=== PATIENT | female | born 1985 | race Caucasian/White ===

== ENCOUNTER 2019-07-26 12:00 | Inpatient (IN) | payer OTHER ==
[~2019-07-26] VITALS: Ht 170.2 cm; Wt 81.6 kg
[2019-07-26 12:55] LABS: BASOPHILS % 0.3 % (0.0-1.0); EOSINOPHILS % 0.1 % (0.0-6.0); HEMATOCRIT 43.2 % (34.2-44.1); HEMOGLOBIN 14.6 g/dL (12.0-16.0); LYMPHOCYTES # (AUTO) 3.2 (1.0-3.2); LYMPHOCYTES % 23.3 % (18.0-39.1); MEAN CORPUSCULAR HEMOGLOBIN 31.1 pg (28-32); MEAN CORPUSCULAR HGB CONC 33.8 g/dL (31-35); MEAN CORPUSCULAR VOLUME 91.9 fL (81-99); MONOCYTES # (AUTO) 1.6 (0.2-0.8); MONOCYTES % 11.8 % (4.4-11.3); NEUTROPHILS # (AUTO) 8.9 (2.1-6.9); NEUTROPHILS % 64.2 % (38.7-80.0); PLATELET COUNT 343 x10e3/uL (140-360); RED CELL DISTRIBUTION WIDTH 13.3 % (11.7-14.4)
[2019-07-26] MEDS ORDERED: ONDANSETRON HCL INJ 2MG/ML 2ML 2 MG/ML VIAL IV STA (12:59)
[2019-07-26] MEDS ORDERED: KETOROLAC TROMETHAMINE 30 MG/ML VIAL IV STA ×2 (12:59→16:58)
[2019-07-26] MEDS ORDERED: SODIUM CHLORIDE 0.9% 1000ML 1,000 ML IV STA (12:59)
[2019-07-26 13:09] LABS: ALANINE AMINOTRANSFERASE 14 IU/L (0-55); ALBUMIN 4.6 g/dL (3.5-5.0); ALBUMIN/GLOBULIN RATIO 1.4 (0.8-2.0); ALKALINE PHOSPHATASE 67 IU/L (40-150); ANION GAP 18.6 mmol/L (8-16); BLOOD UREA NITROGEN < 5 mg/dL (7-26); CARBON DIOXIDE 20 mmol/L (22-29); CHLORIDE 103 mmol/L (98-107); CLARITY,URINE TURBID (CLEAR); COLOR,URINE RED (YELLOW); CREATINE KINASE 23 IU/L (29-168); CREATININE, SERUM 0.83 mg/dL (0.57-1.11); EST GLOMERULAR FILTRATION RATE > 60 ML/MIN (60-); GLUCOSE 120 mg/dL (74-118); POTASSIUM 3.6 mmol/L (3.5-5.1); SODIUM 138 mmol/L (136-145)
[2019-07-26] MEDS ORDERED: MORPHINE SULFATE 2 MG/ML SYR 1ML IV ONE (13:10)
[2019-07-26 13:18] LABS: KETONES,URINE 2+ (NEGATIVE); LEUKOCYTE ESTERASE ,URINE SMALL (NEGATIVE); NITRITE,URINE NEGATIVE (NEGATIVE); PROTEIN,URINE DIPSTICK >=300 (NEGATIVE); URINE UROBILINOGEN 0.2 mg/dL (0.2 - 1)
[2019-07-26 13:19] LABS: BILIRUBIN,URINE SMALL (NEGATIVE); BUN/CREATININE RATIO 6 (6-25)
[2019-07-26 13:27] LABS: BACTERIA,URINE RARE /HPF; EPITHELIAL CELLS,URINE RARE /LPF; RBC,URINE >50 /HPF (0-5); WBC,URINE (MAN) 0-5 /HPF (0-5)
--- NOTE | 2019-07-26 13:27 | Diagnostic Imaging Report ---
EXAMINATION: CHEST SINGLE (PORTABLE) INDICATION: Chest pain COMPARISON: None FINDINGS: LINES/TUBES:None LUNGS:The lungs are well-inflated. No focal consolidation or pulmonary edema. PLEURA:No pleural effusion or pneumothorax. MEDIASTINUM:The cardiomediastinal silhouette appears normal in size and shape. BONES/SOFT TISSUES:No acute osseous injury. ABDOMEN:No free air under the diaphragm. IMPRESSION: No focal pneumonia or pulmonary edema. Signed by: Laurie Garcia MD on 07/26/2019 1:24 PM
--- NOTE | 2019-07-26 16:28 | Diagnostic Imaging Report ---
Exam: KUB - 2 views Indication: Postprocedural Comparison: None Findings: Left internal nephroureteral stent in place. No radiographically apparent urinary calculi. Nonobstructive bowel gas pattern. No free air. Status post cholecystectomy. No acute osseous injury. Partially visualized lung bases appear clear. Impression: Left internal nephroureteral stent in place. No radiographically apparent renal calculi. Nonobstructive bowel gas pattern. No free air. Signed by: Laurie Garcia MD on 07/26/2019 4:25 PM
[2019-07-26] MEDS ORDERED: ZOFRAN4 MG SL (16:44)
[2019-07-26] MEDS ORDERED: NORCO 5-325 TA1 EACH PO (16:44)
--- NOTE | 2019-07-26 17:11 | Emergency Department Note ---
History of Present Illnes History of Present Illness Chief Complaint: General Medicine Complaints History of Present Illness This is a 33 year old female arrived to ED with complaints of nausea vomiting abdominal pain since her cystoscopy done by Dr. Sterling. Patient states the pain is intermittent and Tylenol No. 3 has not been controlling her pain. . Chief Complaint Comment PATIENT IN WITH COMPLAINTS OF NAUSEA, VOMITING AND ABDOMINAL PAIN X 6 DAYS; STATES HAD HER GALLBLADDER OUT A COUPLE OF MONTHS AGO, AND HAD A CYSTOSCOPY YESTERDAY AT [facility] WITH DR STERLING. STATES SHE CALLED AND DR STERLING SENT HER HERE. PATIENT ALERT AND ORIENTED, RESP EVEN AND NONLABORED, APPEARS ANXIOUS. 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 Any updates have been documented here. Past Medical History Recent Fever: No Clinical Suspicion of Infectio: No New/Unexplained Change in Ment: No Past Medical History: Anxiety, Depression, GERD Other Medical History: PANCREATITIS Past Surgical History: Cholecysctectomy Other Surgery: CYSTOSCOPY 07/25/2019 Social History Smoking Cessation: Never Smoker Alcohol Use: None Any Illegal Drug Use: No TB Exposure/Symptoms: No Physically hurt or threatened: No Family History Family history of heart diseas: No Other Last Tetanus: UNKNOWN Any Pre-Existing Lines (PICC,: No Is patient up to date on immun: Yes Last Flu: UNKNOWN Last Pneumovax: UNKNOWN Review of Systems Review of Systems Constitutional: Reports no symptoms EENTM: Reports no symptoms Cardiovascular: Reports no symptoms Respiratory: Reports no symptoms Gastrointestinal: Reports as per HPI, Reports abdominal pain, Reports nausea, Reports vomiting Genitourinary: Reports no symptoms Musculoskeletal: Reports no symptoms Integumentary: Reports no symptoms Neurological: Reports no symptoms Psychological: Reports no symptoms Endocrine: Reports no symptoms Hematological/Lymphatic: Reports no symptoms Physical Exam Related Data Allergies: Coded Allergies: No Known Allergies (Unverified , 07/26/19) Triage Vital Signs Vital Signs Date Time Temp Pulse Resp B/P (MAP) Pulse Ox O2 Delivery O2 Flow Rate FiO2 07/26/19 12:16 99.5 96 20 182/115 100 Vital signs reviewed: Yes Physical Exam CONSTITUTIONAL Constitutional: Present well-developed, Present well-nourished HENT HENT: Present normocephalic, Present atraumatic, Present oropharynx clear/moist, Present nose normal HENT L/R: Present left ext ear normal, Present right ext ear normal EYES Eyes: Reports PERRL, Reports conjunctivae normal NECK Neck: Present ROM normal PULMONARY Pulmonary: Present effort normal, Present breath sounds normal CARDIOVASCULAR Cardiovascular: Present regular rhythm, Present heart sounds normal, Present capillary refill normal, Present normal rate GASTROINTESTINAL Abdominal: Present soft, Present bowel sounds normal, Present tender GENITOURINARY Genitourinary: Present exam deferred SKIN Skin: Present warm, Present dry MUSCULOSKELETAL Musculoskeletal: Present ROM normal NEUROLOGICAL Neurological: Present alert, Present oriented x 3, Present no gross motor or sensory deficits PSYCHOLOGICAL Psychological: Present mood/affect normal, Present judgement normal Results Laboratory Result Diagram: 07/26/19 1225 07/26/19 1225 Laboratory Laboratory Tests Test 07/26/19 14:42 07/26/19 12:25 Urine Test Negative (NEGATIVE) White Blood Count 13.87 x10e3/uL (4.8-10.8) Red Blood Count 4.70 x10e6/uL (3.6-5.1) Hemoglobin 14.6 g/dL (12.0-16.0) Hematocrit 43.2 % (34.2-44.1) Mean Corpuscular Volume 91.9 fL (81-99) Mean Corpuscular Hemoglobin 31.1 pg (28-32) Mean Corpuscular Hemoglobin Concent 33.8 g/dL (31-35) Red Cell Distribution Width 13.3 % (11.7-14.4) Platelet Count 343 x10e3/uL (140-360) Neutrophils (%) (Auto) 64.2 % (38.7-80.0) Lymphocytes (%) (Auto) 23.3 % (18.0-39.1) Monocytes (%) (Auto) 11.8 % (4.4-11.3) Eosinophils (%) (Auto) 0.1 % (0.0-6.0) Basophils (%) (Auto) 0.3 % (0.0-1.0) Neutrophils # (Auto) 8.9 (2.1-6.9) Lymphocytes # (Auto) 3.2 (1.0-3.2) Monocytes # (Auto) 1.6 (0.2-0.8) Eosinophils # (Auto) 0.0 (0.0-0.4) Basophils # (Auto) 0.0 (0.0-0.1) Absolute Immature Granulocyte (auto 0.04 x10e3/uL (0-0.1) Urine Color Red (YELLOW) Urine Clarity Turbid (CLEAR) Urine pH 7 (5 - 7) Urine Specific Dexter 1.030 (1.010-1.025) Urine Protein >=300 (NEGATIVE) Urine Glucose (UA) Negative (NEGATIVE) Urine Ketones 2+ (NEGATIVE) Urine Blood Large (NEGATIVE) Urine Nitrite Negative (NEGATIVE) Urine Bilirubin Small (NEGATIVE) Urine Urobilinogen 0.2 mg/dL (0.2 - 1) Urine Leukocyte Esterase Small (NEGATIVE) Urine RBC >50 /HPF (0-5) Urine WBC 0-5 /HPF (0-5) Urine Epithelial Cells Rare /LPF (NONE) Urine Bacteria Rare /HPF (NONE) Sodium Level 138 mmol/L (136-145) Potassium Level 3.6 mmol/L (3.5-5.1) Chloride Level 103 mmol/L (98-107) Carbon Dioxide Level 20 mmol/L (22-29) Anion Gap 18.6 mmol/L (8-16) Blood Urea Nitrogen < 5 mg/dL (7-26) Creatinine 0.83 mg/dL (0.57-1.11) Estimat Glomerular Filtration Rate > 60 ML/MIN (60-) BUN/Creatinine Ratio 6 (6-25) Glucose Level 120 mg/dL (74-118) Calcium Level 10.0 mg/dL (8.4-10.2) Total Bilirubin 0.7 mg/dL (0.2-1.2) Aspartate Amino Transf (AST/SGOT) 14 IU/L (5-34) Alanine Aminotransferase (ALT/SGPT) 14 IU/L (0-55) Alkaline Phosphatase 67 IU/L (40-150) Creatine Kinase 23 IU/L (29-168) Creatine Kinase MB 0.60 ng/mL (0-5.0) Troponin I 0.006 ng/mL (0-0.300) Total Protein 7.9 g/dL (6.5-8.1) Albumin 4.6 g/dL (3.5-5.0) Globulin 3.3 g/dL (2.3-3.5) Albumin/Globulin Ratio 1.4 (0.8-2.0) Lab results reviewed: Yes Imaging Imaging results reviewed: Yes (KUB and chest x-ray reviews, stent in place) Procedures 12 Lead ECG Interpretation ECG Interpretation : ECG: ECG 1 Nut Sheller Machine Operator: Interpreted by ED physician Rhythm: sinus tachycardia QRS axis: normal ST segments normal: Yes T waves normal: Yes Clinical Impression: normal ECG Assessment & Plan Medical Decision Making MDM 33-year-old female status post cystoscopy with stent placement arrived to the ED with complaints of pain. Patient's pain controlled in the ER, she received IV fluid resuscitation and Zofran. Patient continues to complain of pain during the ED stay despite IV pain medications, states intake and vomiting the pain meds. Multiple made to the patient outpatient pain control however, urology consulted and she was admitted for pain control Assessment & Plan Final Impression: (1) Intractable abdominal pain Depart Disposition: ADMITTED Last Vital Signs Date Time Temp Pulse Resp B/P (MAP) Pulse Ox O2 Delivery O2 Flow Rate FiO2 07/26/19 15:00 75 18 124/88 99 07/26/19 13:18 98.6 Home Meds Active Scripts Ondansetron Hcl* (ZOFRAN*) 4 Mg Tablet, 4 MG SL Q6H PRN for NAUSEA, #14 MG 0 Refills Prov:MT SAHU, DO 07/26/19 Hydrocodone Bit/Acetaminophen (NORCO 5-325 TABLET) 1 Each Tablet, 1 TAB PO Q6H PRN for MODERATE PAIN (4-6), #10 TAB Prov:MT SAHU, 07/26/19 Medications in the ED Sodium Chloride 1,000 ml @ 0 mls/hr Q0M STAT IV Last administered on 07/26/19at 13:10; Admin Dose 1,000 MLS/HR; Start 07/26/19 at 12:59; Stop 07/26/19 at 13:01; Status DC Ketorolac Tromethamine 30 mg ONCE STAT IV Last administered on 07/26/19at 13:11; Admin Dose 30 MG; Start 07/26/19 at 12:59; Stop 07/26/19 at 13:05; Stat us DC Morphine Sulfate 6 mg ONCE ONCE IV Last administered on 07/26/19at 13:50; Admin Dose 6 MG; Start 07/26/19 at 13:10; Stop 07/26/19 at 13:11; Status DC Ondansetron HCl 4 mg NOW STAT IV Last administered on 07/26/19at 13:12; Admin Dose 4 MG; Start 07/26/19 at 12:59; Stop 07/26/19 at 13:06; Status DC Ketorolac Tromethamine 30 mg ONCE STAT IV ; Start 07/26/19 at 16:58; Stop 07/26/19 at 16:59; Status MT RODRIGUEZ, Jul 26, 2019 17:11
[2019-07-26] MEDS ORDERED: ONDANSETRON HCL 4 MG ORAL DISINTEGRATING TAB SL PRN (18:30)
[2019-07-26] MEDS ORDERED: HYDRALAZINE HCL 20 MG/ML VIAL IV PRN (18:30)
[2019-07-26] MEDS ORDERED: ACETAMINOPHEN 325 MG TAB PO PRN (18:30)
[2019-07-26] MEDS ORDERED: TEMAZEPAM 15 MG CAP PO PRN (18:30)
[2019-07-26] MEDS: HYDROCODONE/APAP 5MG-325MG TAB PO PRN (19:34)
[2019-07-26] MEDS: ONDANSETRON HCL INJ 2MG/ML 2ML 2 MG/ML VIAL IV PRN (19:35)
[2019-07-26] MEDS: SODIUM CHLORIDE 0.45% 1,000 ML IV SCH (19:35)
[2019-07-26 19:44] VITALS: BP 122/82
[2019-07-26 19:48] VITALS: BP 122/82
[2019-07-26 20:00] VITALS: BP 143/87
[2019-07-26] MEDS: FAMOTIDINE 20 MG/2 ML VIAL IV SCH (20:14)
[2019-07-26] MEDS ORDERED: PROMETHAZINE 12.5MG/ NACL 0.9% 12.5 MG/50 ML BAG IV PRN (22:30)
[2019-07-26] MEDS: METOCLOPRAMIDE HCL 10 MG/2ML VIAL IV SCH (23:09)
[2019-07-26] MEDS: CEFTRIAXONE SOD 1 GM/NS 50 ML 50 ML IV SCH (23:14)
[2019-07-26] MEDS: KETOROLAC TROMETHAMINE 30 MG/ML VIAL IV PRN (23:30)
[2019-07-27] VITALS (8 sets, daily range): BP systolic 102–147; BP diastolic 69–99
--- NOTE | 2019-07-27 01:11 | History and Physical ---
CHIEF COMPLAINT: Persistent abdominal pain, intractable nausea and vomiting, hematuria. HISTORY OF PRESENT ILLNESS: The patient is a 33-year-old female, came to the emergency room because of intractable nausea and vomiting associated with abdominal pain. The patient had her cystoscopy done by Dr. Dane Sterling the day before. The patient has stent placement with history of kidney stones. The patient stating that she could not keep anything down. 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 Since then, the patient has been on multiple antiemetic medication without relief. She was able to tolerate somewhat, but then after her surgery yesterday, the patient has worsening symptoms where she came to the emergency room for evaluation. Here, the patient persistently with increasing nausea and vomiting. She has also had abdominal pain. The patient placed nothing by mouth and placed on IV fluids. Antibiotic empirically started. The patient is also receiving pain medication. The patient is quite anxious and felt that she will need some support prior to discharge home. PAST MEDICAL HISTORY: Kidney stone with multiple management previously. Status post cystoscopy with stent placement. Chronic nausea and vomiting with acute exacerbation. Recurrent urinary tract infection. Cholecystectomy. Anxiety, depression, and reflux. History of chronic pancreatitis. SOCIAL HISTORY: The patient does not smoke or use alcohol. No regular drugs. ALLERGIES: NO KNOWN ALLERGIES. HOME MEDICATIONS: Hayward 5 mg and Zofran. PHYSICAL EXAMINATION: VITAL SIGNS: Temperature is 97, blood pressure 143/87, pulse rate 70, and respirations 20. GENERAL: The patient is not in acute distress. She is awake. HEENT: Normocephalic and atraumatic. Anicteric. NECK: Supple grossly. PULMONARY: Diminished breath sounds. CARDIOVASCULAR: S1, S2. Regular rate and rhythm. ABDOMEN: Tenderness without any gross rebound or guarding. EXTREMITIES: No cyanosis or edema. NEUROLOGIC: No focal deficit. KUB showed left internal nephroureteral stent in place. SEROLOGY: COVID-19 pending. Urine red turbid with wbc greater than 50, consistent with hematuria. Urine test was negative. WBC is 13.8, hemoglobin 14.6, hematocrit 43.2, and platelet 343. IMPRESSION: 1. Intractable nausea and vomiting. 2. Gross hematuria. 3. Status post left ureteral stent placement. 4. Leukocytosis. 5. Dehydration. 6. History of recurrent nausea and vomiting, persisted now. 7. Anxious and depression. PLAN: Place the patient on IV fluids, pain control. Resume home medication. Rocephin IV 1 g daily empirically. Consultation with Dr. Dane Sterling. Antiemetic with Zofran, Phenergan as needed. Pain medication, Toradol and morphine along with patient's Hayward. The patient will be supported with full liquid diet for now and if she is able to tolerate, we will advance her diet. Pepcid 20 mg IV q.12. Repeat lab work in the morning. MD STEVE Senior/DYLON /[id number]
[2019-07-27] MEDS: SODIUM CHLORIDE 0.45% 1,000 ML IV SCH ×2 (05:34→13:58)
[2019-07-27 06:18] LABS: BASOPHILS % 0.4 % (0.0-1.0); EOSINOPHILS % 0.6 % (0.0-6.0); HEMATOCRIT 36.2 % (34.2-44.1); HEMOGLOBIN 11.8 g/dL (12.0-16.0); LYMPHOCYTES # (AUTO) 3.1 (1.0-3.2); LYMPHOCYTES % 45.5 % (18.0-39.1); MEAN CORPUSCULAR HEMOGLOBIN 31.1 pg (28-32); MEAN CORPUSCULAR HGB CONC 32.6 g/dL (31-35); MEAN CORPUSCULAR VOLUME 95.5 fL (81-99); MONOCYTES # (AUTO) 0.7 (0.2-0.8); NEUTROPHILS # (AUTO) 2.8 (2.1-6.9); NEUTROPHILS % 42.4 % (38.7-80.0); PLATELET COUNT 188 x10e3/uL (140-360); RED BLOOD COUNT 3.79 x10e6/uL (3.6-5.1); RED CELL DISTRIBUTION WIDTH 13.8 % (11.7-14.4)
[2019-07-27 06:42] LABS: ANION GAP 9.9 mmol/L (8-16); BLOOD UREA NITROGEN 5 mg/dL (7-26); BUN/CREATININE RATIO 6 (6-25); CALCIUM 8.4 mg/dL (8.4-10.2); CARBON DIOXIDE 27 mmol/L (22-29); CHLORIDE 108 mmol/L (98-107); CREATININE, SERUM 0.78 mg/dL (0.57-1.11); EST GLOMERULAR FILTRATION RATE > 60 ML/MIN (60-); GLUCOSE 81 mg/dL (74-118); POTASSIUM 3.9 mmol/L (3.5-5.1); SODIUM 141 mmol/L (136-145)
[2019-07-27] MEDS: METOCLOPRAMIDE HCL 10 MG/2ML VIAL IV SCH ×4 (08:31→21:00)
[2019-07-27] MEDS: KETOROLAC TROMETHAMINE 30 MG/ML VIAL IV PRN ×3 (08:42→22:50)
[2019-07-27] MEDS: FAMOTIDINE 20 MG/2 ML VIAL IV SCH ×2 (10:05→18:42)
--- NOTE | 2019-07-27 11:52 | NUR ---
Nutrition Intervention Note RD Recommendation(s) for Physician: Advance diet as tolerated to a low fat regular diet, lactose free Plan of Care: RD following, monitoring for tolerance and adequacy Nutrition reason for involvement: Nutrition Risk Trigger - MST RD Assessment Initial encounter with patient. Pt's first admit to [facility]. Diet Hx: pt denies any known food allergies. Pt is lactose intolerant, avoids caffeine and acidic foods. Pt states that she has lost about 40 pounds since January of 2019 due to nausea, vomiting and abdominal pain. UBW 220# She is on Zophran at home. 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 Unable to determine the cause of the symptoms and patient was admitted to [facility] post cystoscopy procedure. Pt currently denies any nausea, has tolerated a full liquid diet and denies having any difficulty chewing or swallowing at time of visit. GI is following the pt. Gastric emptying test have come back normal. Principal Problems/Diagnoses:Intractable abdominal pain PMH:kidney stone, recurrent UTI, chronic nausea/vomiting, cholecystectomy, Anxiety, depression GI: No N,V, with infrequent BMs Skin: Intact Skin Labs: 07/27/2019) Biochemical data reviewed Meds: (07/27/2019) IV Reglan, pepcid and Zophran, Po zophran Ht:67 in. Wt:180lbs BMI:28.2kg/M2 IBW:135 lbs Malnutrition Evaluation (02/24/19) The patient does not meet criteria for a specified degree of malnutrition at this time. Will re-evaluate at follow-up as appropriate. Nutrition Prescription (Diet Order): Full Liquid Estimated Nutritional Needs: 2045 calories/day (25 kcal/kg/BW) 82g protein/day (1 g pro/kg/BW) Diet Adequacy: Diet progression in process Diet Education Needs Assessment: Diet education not indicated, patient on temporary/transition diet. Nutrition Care Level: Low Nutrition Diagnosis: Altered GI function related to acute illness as evidenced by nausea and vomiting. Goal: Patient will meet 75-100% of estimated needs by follow up Progress: (Progressing) Interventions: modified diet, Prescription medications Monitoring/Evaluation: Total energy intake, Total protein intake, Prescription medication, Modified diet, Weight change. Signed: Stephen Franco RD, LD, CNSC
[2019-07-27] MEDS: HYDROCODONE/APAP 5MG-325MG TAB PO PRN ×2 (11:57→19:06)
--- NOTE | 2019-07-27 13:58 | NUR ---
patient ambulating on the hallway, denies any dizziness or pain this time. keep monitoring
--- NOTE | 2019-07-27 19:00 | NUR ---
Bedside rounds completed with morning nurse. Pt standing with IV pole at window. Pt c/o abd pain 09/15, morning will give pain med. Non-skid socks in place.
[2019-07-27] MEDS: CEFTRIAXONE SOD 1 GM/NS 50 ML 50 ML IV SCH (22:30)
[2019-07-28] VITALS: BP 117/77
[2019-07-28] MEDS: SODIUM CHLORIDE 0.45% 1,000 ML IV SCH (00:50)
[2019-07-28 04:00] VITALS: BP 128/91
[2019-07-28 07:22] VITALS: BP 122/77
[2019-07-28] MEDS: METOCLOPRAMIDE HCL 10 MG/2ML VIAL IV SCH (08:02)
[2019-07-28] MEDS: FAMOTIDINE 20 MG/2 ML VIAL IV SCH (08:25)
[2019-07-28] MEDS: ONDANSETRON HCL INJ 2MG/ML 2ML 2 MG/ML VIAL IV PRN (08:42)
[2019-07-28 08:43] VITALS: BP 122/77
[2019-07-28] MEDS ORDERED: REGLAN5 MG PO (11:01)
[2019-07-28] MEDS ORDERED: CIPRO500 MG PO (11:01)
[2019-07-28] MEDS ORDERED: NAPROXEN250 MG PO (11:02)
[2019-07-28] MEDS ORDERED: PEPCID20 MG PO (11:02)
[2019-07-28 11:15] VITALS: BP 145/88
--- NOTE | 2019-07-28 11:26 | Discharge Summary ---
FINAL DIAGNOSES: 1. Intractable nausea and vomiting. 2. Dysuria, hematuria. 3. Intractable abdominal pain, status post cystoscopy. SUMMARY: A 33 years female status post cystoscopy. The patient was having pain postoperatively the day after. She was having intractable nausea and vomiting, came to the hospital. Her WBC was 13,800. Chemistry, the patient is slightly dehydrated. She was having intractable nausea and vomiting even in the emergency room, Zofran did not improve, Reglan was initiated. The patient is otherwise stable. She had abdominal x-ray and chest x-ray. She had a left internal nephroureteral stent in place. No apparent kidney stone. The patient is otherwise stable. Her urine has been clear. No hematuria. Nausea and vomiting improved with Reglan 5 mg before meal. The patient is stable. DISCHARGE MEDICATIONS: Discharged home with: 1. Cipro 250 mg twice a day for 5 days. 2. Reglan 5 mg before meals and at bedtime p.r.n. for nausea and vomiting. 3. Pepcid 40 mg twice a day. 4. Naproxen 5 mg twice a day as needed for pain, #30 tablets. CONDITION: The patient is stable. DISPOSITION: Discharged home. DISCHARGE INSTRUCTIONS: Resume home medication. The patient to follow up with Dr. Dane Sterling. DIET: As tolerated. MD STEVE Senior/DYLON /[id number]
--- NOTE | 2019-07-28 11:41 | NUR ---
Patient discharged home, Alert with no distress, prescription given, IV canula removed with tip intact, no ss of infiltration noted, refused wheelchair , walked with her to front lobby
== END 2019-07-28 11:20 | disposition home or self-care (01) | DRG 641 ==
LOC: ER 12:00 → ERHOLD 17:11 → MED/SURG3 18:42 → OBSVTOIN 07-27 09:27
PROVIDERS: ADMIT Internal Medicine; ATTEND Internal Medicine
DX: E86.0 Dehydration (principal); R11.2 Nausea with vomiting, unspecified; G89.18 Other acute postprocedural pain; R30.0 Dysuria; Z96.0 Presence of urogenital implants; D64.9 Anemia, unspecified; F41.9 Anxiety disorder, unspecified; F32.9 Major depressive disorder, single episode, unspecified; R31.0 Gross hematuria; D72.829 Elevated white blood cell count, unspecified
CPT/HCPCS: 36415; 71045; 74018; 80048; 80053; 81001; 81025; 82550; 82553; 84484; 85025; 87635; 93005; 96361; 99284; G0378; J0696; J1885; J2270; J2405; J2765; J7030; Q0162

== ENCOUNTER 2019-08-10 11:23 | Inpatient (IN) | payer OTHER ==
[~2019-08-10] VITALS: Ht 170.2 cm; Wt 81.6 kg
[~2019-08-10 11:23] MED LIST: CIPRO500 MG PO; NAPROXEN250 MG PO; NORCO 5-325 TA1 EACH PO; PEPCID20 MG PO; REGLAN5 MG PO; ZOFRAN4 MG SL
[2019-08-10] MEDS ORDERED: ONDANSETRON HCL INJ 2MG/ML 2ML 2 MG/ML VIAL IV STA (11:53)
[2019-08-10] MEDS ORDERED: SODIUM CHLORIDE 0.9% 1000ML 1,000 ML IV SCH (12:00)
[2019-08-10] MEDS ORDERED: MORPHINE SULFATE INJ 4 MG/ML INJ 1ML IV STA (12:01)
--- NOTE | 2019-08-10 12:02 | Emergency Department Note ---
History of Present Illnes History of Present Illness Chief Complaint: Abdominal Complaints History of Present Illness This is a 33 year old female . 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: seen last night at [facility] she has a UTI and Clinical Research Associate Required: No Location: left lower quadrant Radiation: Reports non-radiation Severity: moderate Onset quality: gradual Duration (how long): day(s) (1) Timing of current episode: constant Progression: worsening Context: Reports recent surgery (had a urethral stent placed the middle of july for 5 mm left urethral stone) Relieving factors: none Exacerbating factors: none Associated symptoms: Reports fever/chills Treatments prior to arrival: none Past Medical/Family History Physician Review I have reviewed the patient's past medical and family history. Any updates have been documented here. Past Medical History Past Medical History: Anxiety, Depression, GERD Other Medical History: PANCREATITIS Past Surgical History: Cholecysctectomy Other Surgery: CYSTOSCOPY 07/25/2019 Social History Smoking Cessation: Current every day smoker Counseling Performed: Yes Alcohol Use: Occasional Any Illegal Drug Use: No TB Exposure/Symptoms: No Physically hurt or threatened: No Other Last Tetanus: UNKNOWN Any Pre-Existing Lines (PICC,: No Is patient up to date on immun: No Review of Systems Review of Systems Constitutional: Reports chills, Reports fever EENTM: Reports no symptoms Cardiovascular: Reports no symptoms Respiratory: Reports no symptoms Gastrointestinal: Reports no symptoms, Reports as per HPI, Reports other (hematuria) Genitourinary: Reports no symptoms Musculoskeletal: Reports no symptoms Integumentary: Reports no symptoms Neurological: Reports no symptoms Endocrine: Reports no symptoms Hematological/Lymphatic: Reports no symptoms Physical Exam Related Data Allergies: Coded Allergies: No Known Allergies (Unverified , 07/26/19) Vital signs reviewed: Yes Physical Exam CONSTITUTIONAL Constitutional: Present well-developed HENT HENT: Present normocephalic, Present atraumatic EYES Eyes: Reports PERRL, Reports conjunctivae normal, Reports EOM normal, Reports lids normal NECK Neck: Present ROM normal, Present supple PULMONARY Pulmonary: Present effort normal, Present breath sounds normal CARDIOVASCULAR Cardiovascular: Present regular rhythm, Present heart sounds normal, Present intact distal pulses, Present capillary refill normal, Present normal rate GASTROINTESTINAL Abdominal: Present soft, Present bowel sounds normal, Present tender (left lower quadrant) GENITOURINARY Genitourinary: Present exam deferred SKIN Skin: Present warm, Present dry MUSCULOSKELETAL Musculoskeletal: Present ROM normal NEUROLOGICAL Neurological: Present alert, Present oriented x 3, Present DTRs normal, Present no gross motor or sensory deficits PSYCHOLOGICAL Psychological: Present mood/affect normal, Present behavior normal, Present thought content normal Results Laboratory Laboratory wbc 15.9 with 79 segs urine preg neg ua mod bili ketone 40 mg/d s.g greater than 1.030 large blood protein greater than 300 mg /dl trace leuk esterase Lab results reviewed: Yes (lacxtic acid 2.82 elevated glucose 136 mildly increased) Laboratory comments lactic acid mildly elevated Imaging Imaging results reviewed: Yes Impressions left ureythral stent diverticulosis no evidence of diverticulitis Assessment & Plan Medical Decision Making MDM spoke with Dr. ruff states urine grew hugh mann done yesterday at [facility] will admit on Vancomycin and Hydration . Call Placed to Dr. Moris Chatterjee Assessment & Plan Final Impression: (1) Pyelonephritis Depart Disposition: ADMITTED Home Meds Active Scripts Ondansetron Hcl* (ZOFRAN*) 4 Mg Tablet, 4 MG SL Q6H PRN for NAUSEA, #14 MG 0 Refills Prov:MT SAHU, DO 07/26/19 Hydrocodone Bit/Acetaminophen (NORCO 5-325 TABLET) 1 Each Tablet, 1 TAB PO Q6H PRN for MODERATE PAIN (4-6), #10 TAB Prov:MT SAHU, DO 07/26/19 Reported Medications Naproxen (NAPROXEN) 250 Mg Tablet, 500 MG PO BID, TAB 07/28/19 Famotidine (PEPCID) 20 Mg Tablet, 60 MG PO BID, #60 TAB 07/28/19 Metoclopramide Hcl (REGLAN) 5 Mg Tablet, 5 MG PO ACHS PRN for NAUSEA AND VOMITING, TAB 07/28/19 Ciprofloxacin Hcl (CIPRO) 500 Mg Tablet, 250 MG PO BID, #10 TAB 07/28/19 RUTHY FRITZ MD Aug 10, 2019 12:02
[2019-08-10] MEDS ORDERED: LEVOFLOXACIN 750MG/D5W 150ML 150 ML IV STA (12:11)
[2019-08-10] MEDS ORDERED: SODIUM CHLORIDE 0.9% 1000 ML BAG IV ONE (12:45)
[2019-08-10] MEDS ORDERED: ACETAMINOPHEN 325 MG TAB ONE (13:11)
[2019-08-10] MEDS ORDERED: SODIUM CHLORIDE 0.9% 1000ML 1,000 ML ONE (13:11)
--- NOTE | 2019-08-10 13:11 | Diagnostic Imaging Report ---
EXAM: CT Abdomen and Pelvis WITHOUT contrast INDICATION: ^adbominal apin ^[id number] ^1235 ^N COMPARISON: KUB 07/26/2019 TECHNIQUE: Abdomen and pelvis were scanned utilizing a multidetector helical scanner from the lung base to the pubic symphysis without administration of IV contrast. Absence of intravenous contrast decreases sensitivity for detection of focal lesions and vascular pathology. Coronal and sagittal reformations were obtained. Routine protocol was performed. IV CONTRAST: None. ORAL CONTRAST: Water RADIATION DOSE: Total DLP: 782.5 mGy*cm Estimated effective dose: (DLP x 0.015 x size factor) mSv COMPLICATIONS: None FINDINGS: LINES and TUBES: None. LOWER THORAX: Unremarkable HEPATOBILIARY: No focal hepatic lesions. No biliary ductal dilation. GALLBLADDER: Cholecystectomy. SPLEEN: No splenomegaly. PANCREAS: No focal masses or ductal dilatation. ADRENALS: No adrenal nodules KIDNEYS/URETERS: No hydronephrosis. No cystic or solid mass lesions. No stones. [There is stent with the proximal catheter at the level of the left renal pelvis, and distally at the level of the urinary bladder. There is mild wall thickening of the distal left ureter but no surrounding fat stranding or fluid collections on series 2, image 72. GI TRACT: No abnormal distention, wall thickening, or evidence of bowel obstruction. Scattered diverticulosis throughout the colon without diverticulitis. Appendix is normal. PELVIC ORGANS/BLADDER: The urinary bladder is collapsed. The uterus is retroverted and normal in size. LYMPH NODES: No lymphadenopathy. VESSELS: Unremarkable. PERITONEUM / RETROPERITONEUM: No free air or fluid. BONES: Unremarkable. SOFT TISSUES: Unremarkable. IMPRESSION: 1. Diverticulosis throughout the colon without diverticulitis. 2. Left ureteral stent in adequate position. No calcified stones or hydronephrosis. Nonspecific mild wall thickening of the distal left ureter at the ureteral bladder junction may be inflammatory or appears less likely to be infectious. Correlate with urinalysis. Signed by: Dr. Sujatha Sandoval M.D. on 08/10/2019 1:08 PM
[2019-08-10] MEDS ORDERED: ACETAMINOPHEN 325 MG TAB PO ONE (13:15)
[2019-08-10] MEDS: VANCOMYCIN 1GM/NS 250 ML 250 ML IV SCH (13:30)
[2019-08-10] MEDS ORDERED: VANCOMYCIN 1GM/NS 250 ML 250 ML IV STA (13:33)
[2019-08-10] MEDS ORDERED: VANCOMYCIN 1GM/NS 250 ML 250 ML ONE (14:28)
--- NOTE | 2019-08-10 15:05 | NUR ---
PT RECEIVED FROM [facility]. EDUCATED PT ABOUT FALL PRECAUTIONS. PT VERBALIZED UNDERSTANDING. CALL LIGHT WITH IN EASY REACH. INSTRUCTED PT TO USE CALL LIGHT FOR ALL THE NEEDS. BED IS LOW AND LOCKED. SIDE RAILS X2. PT DENIES NEEDS AT THIS TIME.
--- NOTE | 2019-08-10 15:10 | NUR ---
PAGED DR. PERDOMO AND INFORMED PT ARRIVAL TO THE UNIT.
[2019-08-10] MEDS: SODIUM CHLORIDE 0.9% 1000ML 1,000 ML IV SCH (15:20)
[2019-08-10 15:30] VITALS: BP 121/82
--- NOTE | 2019-08-10 15:30 | NUR ---
PAGED DR. PHILLIPS REGARDING NEW CONSULT.
[2019-08-10] MEDS: MORPHINE SULFATE INJ 4 MG/ML INJ 1ML IV PRN ×2 (15:37→20:00)
[2019-08-10] MEDS: ONDANSETRON HCL INJ 2MG/ML 2ML 2 MG/ML VIAL IV PRN ×2 (15:37→20:00)
--- NOTE | 2019-08-10 16:00 | NUR ---
PT HOME MEDS REVIEWED WITH PT.
[2019-08-10] MEDS ORDERED: DICYCLOMINE HCL20 MG PO (16:13)
[2019-08-10] MEDS ORDERED: ESCITALOPRAM OX20 MG PO (16:13)
[2019-08-10 16:19] VITALS: BP 121/82
[2019-08-10] MEDS ORDERED: AMBIEN10 MG PO (16:19)
[2019-08-10 16:45] VITALS: BP 121/82
--- NOTE | 2019-08-10 19:00 | NUR ---
BEDSIDE SHIFT REPORT GIVEN TO THE FAMILY HELPER RN. PT DENIED FURTHER NEEDS.
--- NOTE | 2019-08-10 19:00 | NUR ---
RECEIVED PATIENT IN BEDSIDE SHIFT REPORT. PATIENT RESTING IN BED AT THIS TIME. PAIN 5/10. NO S&S OF DISTRESS NOTED. BED LOCKED IN LOWEST POSITION, SIDE RAILS UPX2, CALL LIGHT IN REACH.
[2019-08-10 19:46] VITALS: BP 114/74
[2019-08-10 20:00] VITALS: BP 114/74
[2019-08-10] MEDS: ZOLPIDEM TARTRATE 10 MG TAB PO PRN (22:26)
[2019-08-10] MEDS: ESCITALOPRAM OXALATE 10 MG TAB PO SCH (22:26)
[2019-08-11] VITALS (8 sets, daily range): BP systolic 97–127; BP diastolic 68–79
[2019-08-11] MEDS: MORPHINE SULFATE INJ 4 MG/ML INJ 1ML IV PRN ×6 (00:05→21:30)
[2019-08-11] MEDS: ONDANSETRON HCL INJ 2MG/ML 2ML 2 MG/ML VIAL IV PRN ×6 (00:05→21:30)
[2019-08-11] MEDS: VANCOMYCIN 1GM/NS 250 ML 250 ML IV SCH ×2 (01:14→14:20)
[2019-08-11] MEDS: SODIUM CHLORIDE 0.9% 1000ML 1,000 ML IV SCH (01:14)
[2019-08-11 05:35] LABS: BASOPHILS % 0.7 % (0.0-1.0); EOSINOPHILS % 0.5 % (0.0-6.0); HEMATOCRIT 32.4 % (34.2-44.1); HEMOGLOBIN 10.5 g/dL (12.0-16.0); LYMPHOCYTES # (AUTO) 2.6 (1.0-3.2); LYMPHOCYTES % 43.6 % (18.0-39.1); MEAN CORPUSCULAR HEMOGLOBIN 30.6 pg (28-32); MEAN CORPUSCULAR HGB CONC 32.4 g/dL (31-35); MEAN CORPUSCULAR VOLUME 94.5 fL (81-99); MONOCYTES # (AUTO) 0.5 (0.2-0.8); MONOCYTES % 8.3 % (4.4-11.3); NEUTROPHILS # (AUTO) 2.8 (2.1-6.9); NEUTROPHILS % 46.6 % (38.7-80.0); PLATELET COUNT 195 x10e3/uL (140-360); RED BLOOD COUNT 3.43 x10e6/uL (3.6-5.1); RED CELL DISTRIBUTION WIDTH 13.8 % (11.7-14.4)
[2019-08-11 05:57] LABS: ALANINE AMINOTRANSFERASE 7 IU/L (0-55); ALBUMIN 3.1 g/dL (3.5-5.0); ALBUMIN/GLOBULIN RATIO 1.2 (0.8-2.0); ALKALINE PHOSPHATASE 45 IU/L (40-150); ANION GAP 10.5 mmol/L (8-16); BLOOD UREA NITROGEN 5 mg/dL (7-26); BUN/CREATININE RATIO 7 (6-25); CALCIUM 8.1 mg/dL (8.4-10.2); CARBON DIOXIDE 24 mmol/L (22-29); CHLORIDE 111 mmol/L (98-107); CREATININE, SERUM 0.71 mg/dL (0.57-1.11); EST GLOMERULAR FILTRATION RATE > 60 ML/MIN (60-); GLUCOSE 84 mg/dL (74-118); POTASSIUM 3.5 mmol/L (3.5-5.1); SODIUM 142 mmol/L (136-145)
[2019-08-11] MEDS: SOD CHL 0.45%/POT CHL 20MEQ 1,000 ML IV SCH (12:50)
[2019-08-11 13:24] LABS: CLARITY,URINE CLEAR (CLEAR); LEUKOCYTE ESTERASE ,URINE NEGATIVE (NEGATIVE); NITRITE,URINE NEGATIVE (NEGATIVE)
[2019-08-11 13:25] LABS: BILIRUBIN,URINE NEGATIVE (NEGATIVE); KETONES,URINE NEGATIVE (NEGATIVE); PROTEIN,URINE DIPSTICK NEGATIVE (NEGATIVE); URINE UROBILINOGEN 0.2 mg/dL (0.2 - 1)
[2019-08-11 13:26] LABS: COLOR,URINE PINK (YELLOW)
[2019-08-11 13:34] LABS: RBC,URINE >50 /HPF (0-5); WBC,URINE (MAN) >50 /HPF (0-5)
[2019-08-11 13:35] LABS: EPITHELIAL CELLS,URINE FEW /LPF
[2019-08-11 13:36] LABS: BACTERIA,URINE MODERATE /HPF
--- NOTE | 2019-08-11 18:57 | NUR ---
Report given to oncoming nurse of patient's status. Resting in bed. No s/s of acute distress noted. Side rails upx2, call light within reach.
--- NOTE | 2019-08-11 19:00 | NUR ---
RECEIVED PATIENT IN BEDSIDE SHIFT REPORT. PATIENT RESTING IN BED AT THIS TIME. MODERATE PAIN REPORTED. NO S&S OF DISTRESS NOTED. BED LOCKED IN LOWEST POSITION, SIDE RAILS UPX2, CALL LIGHT IN REACH.
--- NOTE | 2019-08-11 19:27 | Consultation ---
DATE OF CONSULTATION: 08/11/2019 Urology Consultation REASON FOR CONSULTATION: Stent and complicated urinary tract infection. HISTORY OF PRESENT ILLNESS: Hui Silva is a 33-year-old woman, who was seen at [facility]. She had hydronephrosis and was due to probable stone and underwent ureteral stenting. The patient was admitted for pain control and then discharged again. The patient two days ago went to [facility] to the emergency room. The emergency room failed to call me about when my patient with my stent that was placed in their institution showed up in the emergency room. They sent urine culture, they send the patient home without any antibiotics nor any analgesics. A CT was performed had they called me, I would have told them that we need do a KUB and prevent radiation of the patient. The patient had persistent symptomatology, I instructed her to come to this institution. By the time she showed up the urine culture came back as greater than 100,000 colonies of Staph in the urine and admission was done for pain control and intravenous antibiotics having failed outpatient management. The patient reports some hematuria and some dysuria and some stent discomfort. For past medical history, past surgical history, allergies, social history, and family history, please refer to [facility] consultation notes and chart. CURRENT MEDICATIONS: Please refer to the MAR. REVIEW OF SYSTEMS: Discussed as above in history of present illness. PAST MEDICAL HISTORY: Otherwise negative for all other systems. PHYSICAL EXAMINATION: GENERAL: Relatively healthy-appearing 33-year-old woman lying in bed, in no apparent distress. She is currently afebrile. VITAL SIGNS: Currently stable. ABDOMEN: Soft, nondistended. It is slightly tender in the left flank with mild left-sided costovertebral angle tenderness. She also has some mild epigastric tenderness. Kidneys not palpable without hepatosplenomegaly. No obvious evidence of hernia. For the remaining physical examination systems, please refer to the admission history and physical on the chart. Of note is the fact the patient had 100.1 fever upon presentation to the emergency room. LABORATORY STUDIES: CT scan of the abdomen and pelvis was performed yet again in this facility and there was a left indwelling ureteral stent in place and mild wall thickening of the distal left ureter, but no surrounding fat stranding and no stones could be well visualized. Urinalysis was kindly recommended by the radiologist. Urine culture is pending. Blood cultures are pending. White blood cell count is 5920, hemoglobin 10.5, platelets of 195,000. The patient's potassium is 3.5. Her calcium is low at 8.1. ASSESSMENT: 1. Left-sided hydronephrosis managed by. 2. Left indwelling ureteral stent. 3. Microscopic hematuria. 4. Complicated urinary tract infection with Staphylococcus aureus from [facility]. 5. Hypocalcemia. 6. Renal colic. 7. Nonspecific ongoing abdominal pains with diagnosis of gastritis. PLAN: 1. We will await final culture and sensitivity here. 2. We will await final culture and sensitivity at [facility]. 3. I ordered for the patient to get straight catheterized for urine culture and sensitivities. 4. When the patient is culture negative, we will plan to take her to the operating room to remove her stent and evaluate and manage any reason for potential for continued obstruction. Thank you much for involving me in the care of my patient. I will be happy to follow her along with you as well as an outpatient. Dane Sterling MD [place]/MODL /[id number]
--- NOTE | 2019-08-11 19:42 | History and Physical ---
MANAGER LSW: Dane Sterling MD PRIMARY CARE PHYSICIAN: Aggie Angela. CHIEF COMPLAINT: Left-sided flank pain associated with fever, nausea, and vomiting. HISTORY OF PRESENT ILLNESS: This is a 33-year-old female, was having abdominal left flank pain. The patient had left ureteral stent placement. She also has recurrent infection. She came to [facility] Emergency room and subsequently discharged home. She went home, did not improve in the pain, came back to the Hospital, at this time at [facility]. The patient had a urine culture grew out to be MRSA. The patient is receiving IV vancomycin. She stating that she is still having pain to the left flank area. She had low-grade fever, nausea, and vomiting. She is unable to take anything down at this time. The patient has a left ureteral stent placement, recently by Dr. Dane Sterling. She was just recently also admitted here at [facility] on 07/26/2019, and was discharged on 07/28/2019. The patient is currently receiving IV fluids, electrolyte replacement, and IV antibiotic. PAST MEDICAL HISTORY: Recurrent urinary tract infection with left hydronephrosis. She had a left ureteral stent placement. She had recurrent urinary tract infection. Anxiety, depression, and reflux. Chronic pancreatitis. PAST SURGICAL HISTORY: Cholecystectomy, and cystoscopy on July 25, 2019, where she had a left ureteral stent placement. ALLERGIES: NO KNOWN ALLERGIES. HOME MEDICATIONS: The patient is on [place], Lexapro, Pepcid, Reglan, Zofran, and Ambien. PHYSICAL EXAMINATION: VITAL SIGNS: T-max of 100.1, blood pressure 163/99, pulse rate is 80, and respirations 18. The patient was in pain. HEENT: Normocephalic and atraumatic. Anicteric. NECK: Supple grossly. PULMONARY: Diminished breath sounds. CARDIOVASCULAR: Regular rate and rhythm. ABDOMEN: Left CVA tenderness. EXTREMITIES: No cyanosis or edema. NEUROLOGIC: No focal deficit. LABORATORY: Chemistry; sodium 142, potassium 3.5, chloride 111, bicarb 24, BUN is 5, creatinine 0.7, glucose is 84. WBC 5.9, hemoglobin 10.5, hematocrit 32.4, and platelets 195. CT scan of abdomen and pelvis show pyelonephritis on the left. IMPRESSION: 1. Intractable nausea and vomiting associated with left flank pain, uncontrollable, failed outpatient treatment, fail emergency room visit. This is her 2nd emergency room visit and admitted for left pyelonephritis. 2. Intractable nausea and vomiting. 3. Dehydration. 4. Recurrent urinary tract infection. PLAN: IV fluid support. Change to half-normal saline with potassium. IV antibiotics. Check the urine culture at Hospital. Confirm the patient's infection and target antibiotics to the infection. In the meantime, supportive measure with pain medication, antiemetic, and IV fluids. We will discuss with Dr. Dane Sterling on consult. MD STEVE Senior/DYLON /[id number]
[2019-08-11] MEDS: ZOLPIDEM TARTRATE 10 MG TAB PO PRN (21:20)
[2019-08-11] MEDS: ESCITALOPRAM OXALATE 10 MG TAB PO SCH (21:20)
[2019-08-12] VITALS (8 sets, daily range): BP systolic 100–130; BP diastolic 68–88
[2019-08-12] MEDS: SOD CHL 0.45%/POT CHL 20MEQ 1,000 ML IV SCH ×3 (00:48→15:34)
[2019-08-12] MEDS: MORPHINE SULFATE INJ 4 MG/ML INJ 1ML IV PRN ×5 (01:35→21:13)
[2019-08-12] MEDS: ONDANSETRON HCL INJ 2MG/ML 2ML 2 MG/ML VIAL IV PRN ×4 (01:35→21:13)
[2019-08-12] MEDS: VANCOMYCIN 1GM/NS 250 ML 250 ML IV SCH ×2 (01:43→13:30)
[2019-08-12 06:40] LABS: ANION GAP 10.7 mmol/L (8-16); BLOOD UREA NITROGEN < 5 mg/dL (7-26); CALCIUM 8.7 mg/dL (8.4-10.2); CARBON DIOXIDE 28 mmol/L (22-29); CHLORIDE 106 mmol/L (98-107); CREATININE, SERUM 0.81 mg/dL (0.57-1.11); EST GLOMERULAR FILTRATION RATE > 60 ML/MIN (60-); GLUCOSE 85 mg/dL (74-118); POTASSIUM 3.7 mmol/L (3.5-5.1); SODIUM 141 mmol/L (136-145)
[2019-08-12 06:42] LABS: BUN/CREATININE RATIO 6 (6-25)
--- NOTE | 2019-08-12 07:16 | NUR ---
ASSUMED CARE. RESTING IN BED. AAOX3. ACYANOTIC. EQUAL RISE AND FALL NOTED WITH RESPIRATIONS. NO DISTRESS NOTED. CALL LIGHT IN REACH. SIDE RAILS UP X2. BED LOW AND LOCKED.
--- NOTE | 2019-08-12 12:36 | NUR ---
TRANSFERRED TO OR VIA STRETCHER FOR SCHEDULED PROCEDURE. NO DISTRESS NOTED.
[2019-08-12] MEDS ORDERED: B&O 60MG R/S 60 MG SUPP PR ONE (12:54)
[2019-08-12] MEDS ORDERED: IOPAMIDOL 300MG/ML 50ML INFUS..BTL IV ONE (12:55)
[2019-08-12] MEDS ORDERED: VANCOMYCIN 1GM/NS 250 ML 250 ML ONE (13:01)
[2019-08-12] MEDS ORDERED: ONDANSETRON HCL INJ 2MG/ML 2ML 2 MG/ML VIAL ONE ×2 (13:50→15:09)
[2019-08-12] MEDS ORDERED: FENTANYL CITRATE/PF 100MCG/2 ML INJ ONE ×2 (13:58→15:02)
[2019-08-12] MEDS ORDERED: KETOROLAC TROMETHAMINE 30 MG/ML VIAL ONE (13:58)
[2019-08-12] MEDS ORDERED: MIDAZOLAM HCL 2 MG/2 ML VIAL ONE (15:02)
[2019-08-12] MEDS ORDERED: PROPOFOL IV EMULSION 10 MG/ML 20 ML VIAL ONE (15:09)
[2019-08-12] MEDS ORDERED: LIDOCAINE HCL 2% LOCAL INJ 5 ML SDV VIAL INJ ONE (15:09)
[2019-08-12] MEDS ORDERED: SEVOFLURANE INHAL SOLN 250 ML PEN BTL ONE (15:09)
--- NOTE | 2019-08-12 15:34 | NUR ---
PATIENT ARRIVED TO UNIT AT APPROXIMATELY 1330. AWAKE AND ALERT. ACYANOTIC. NO DISTRESS NOTED. CALL LIGHT IN REACH. SIDE RAILS UP X2.
[2019-08-12] MEDS ORDERED: PHENAZOPYRIDINE HCL 100 MG TAB PO PRN (16:45)
[2019-08-12] MEDS ORDERED: B&O 60MG R/S 60 MG SUPP PR PRN (16:45)
[2019-08-12] MEDS: ESCITALOPRAM OXALATE 10 MG TAB PO SCH (20:15)
--- NOTE | 2019-08-12 20:15 | NUR ---
PATIENT IS IN STABLE CONDITION AOX4, NO SIGNS OF DISTRESS NOTED. IV FLUIDS ARE RUNNING AT ORDERED RATE AND PATIENT VOICES PAIN AT A LEVEL OF 6 AND WILL BE MEDICATED ORDERED. BED IS IN LOWEST POSITION, BOTH SIDE RAILS ARE UP, CALL LIGHT IS WITHIN EASY REACH, WILL CONTINUE TO MONITOR.
[2019-08-12] MEDS: ZOLPIDEM TARTRATE 10 MG TAB PO PRN (23:09)
[2019-08-13] VITALS: BP 124/78
[2019-08-13] MEDS: SOD CHL 0.45%/POT CHL 20MEQ 1,000 ML IV SCH (00:23)
[2019-08-13] MEDS: VANCOMYCIN 1GM/NS 250 ML 250 ML IV SCH (00:45)
[2019-08-13] MEDS: MORPHINE SULFATE INJ 4 MG/ML INJ 1ML IV PRN ×2 (01:15→05:11)
[2019-08-13] MEDS: ONDANSETRON HCL INJ 2MG/ML 2ML 2 MG/ML VIAL IV PRN ×2 (01:15→05:11)
[2019-08-13 04:00] VITALS: BP 99/59
--- NOTE | 2019-08-13 08:00 | NUR ---
INITIAL ASSESSMENT COMPLETE, PT IN BED, CALL LIGHT IN REACH, WANTS TO SPEAK WITH DR ABOUT PROCEDURE, NOT HAPPY WITH DR AND HER CARE FROM DR., NO PAIN NOTED, COVID PENDING, VS STABLE, IV INFUSING, IV INTACT, STRAINING URINE, NO OTHER NEEDS, NO DISTRESS NOTED,
[2019-08-13 08:15] VITALS: BP 116/74
--- NOTE | 2019-08-13 09:00 | NUR ---
DR PHILLIPS HERE TO SEE PT, OK TO DISCHARGE, CALL PLACED TO DR. PERDOMO, VS WNL, CALL LIGHT IN REACH
[2019-08-13 09:27] VITALS: BP 116/74
--- NOTE | 2019-08-13 10:16 | Discharge Summary ---
BARBERING INSTRUCTOR: Dane Sterling MD FINAL DIAGNOSES: 1. Left pyelonephritis with Staph aureus. Sensitivity pending because the urine culture was not done here, but it was done at another hospital. 2. Status post left flank pain and status post cystoscopy with stent exchange. SUMMARY: The patient is a 33 years female with left hydronephrosis. The patient has stent placement previously. She came in with left pyelonephritis associated with increasing infection and the urine culture that was done at another facility [facility] was with Staph aureus. The patient has been getting vancomycin here. She is stable. Afebrile. White cell count is normal. The patient will go home with Bactrim DS one tablet twice a day for 7 days. She will follow up with Dr. Dane Sterling as an outpatient for urine culture and sensitivity. The patient is otherwise stable. She will resume all home medication and follow up as instructed. MD STEVE Senior/DYLON /[id number]
--- NOTE | 2019-08-13 10:30 | NUR ---
DR PERDOMO HERE TO SEE PT, OK TO DISCHARGE,
--- NOTE | 2019-08-13 10:45 | NUR ---
Pt declined visit at this time stating she is preparing for d/c. JEANNINE JEROME Back [facility] Spiritual Care Department O: [phone]
--- NOTE | 2019-08-13 10:58 | NUR ---
PT DISCHARGED, VS WNL, BELONGINGS GATHERED, IV D/CD, INSTRUCTIONS AND PRESCRIPTIONS GIVEN, PT DISCHARGED TO HOME VIA PRIVATE CAR
--- OUTSIDE RECORDS SUMMARY | 2019-09-06 06:09 | XMS REPORT | Continuity of Care Document ---
Author Author [facility] t Organization [facility] Address [address] [place] [address] Phone Unavailable Care Team Providers Care Highway Traffic Control Technician Name Role Phone Jerome ANGELA PCP RUTHY FRITZ Attphys Unavailable Zach SAHU Attphys Unavailable Payers Payer Name Policy Type Policy Number Effective Date Expiration Date Zach [facility] [id number] 2019 00:00:00 [facility] Problems Condition Name Condition Details Condition Category Status Onset Date Resolution Date Last Treatment Date Treating Clinician Comments Source Intractable abdominal pain Problem Active [facility] Pyelonephritis Problem Active C [facility] Allergies, Adverse Reactions, Alerts Allergy Name Allergy Type Status Severity Reaction(s) Onset Date Inacti ve Date Treating Clinician Comments Source No Known Allergies DA Active U 2018-12-12 00:00:00 [facility] No Known Allergies DA Active U 2018-11-12 00:00:00 [facility] No Known Allergies DA Active U 2018-10-03 00:00:00 [facility] Social History Social Habit Start Date Stop Date Quantity Comments Source Sex Assigned At 1985 00:00:00 1985 00:00:00 Female [facility] Medications Ordered Medication Name Filled Medication Name Start Date Stop Da te Current Medication? Ordering Clinician Indication Dosage Frequency Signature (SIG) Comments Components Source Ondansetron Hcl (Zofran*) 4 Mg TABLET Ondansetron Hcl (Zofra n*) 4 Mg TABLET 2019-07-26 16:44:00 Yes 4 Every 6 Hours as n eeded for Nausea [facility] Hydrocodone Bit/Acetaminophen ([place] 5-325 Tablet) 1 E ach TABLET Hydrocodone Bit/Acetaminophen ([place] 5-325 Tablet) 1 Each TABLET 2019-07-26 16:44:00 2019-08-10 00:00:00 No 1 Every 6 Ho urs as needed for Moderate Pain (4-6) [facility] Dicyclomine Hcl Dicyclomine Hcl Yes 20 Daily [facility] Escitalopram Oxalate Escitalopram Oxalate Yes 20 Daily [facility] Famotidine (Pepcid) 20 Mg TABLET Famotidine (Pepcid) 20 Mg TABLET Yes 40 Daily [facility] Metoclopramide Hcl (Reglan) 5 Mg TABLET Metoclopramide Hcl ( Reglan) 5 Mg TABLET Yes 5 Twice A Day as needed for Nause a And Vomiting [facility] Zolpidem Tartrate (Ambien) 10 Mg TABLET Zolpidem Tartrate (A mbien) 10 Mg TABLET Yes 10 Bedtime as needed for Sleep [facility] Ciprofloxacin Hcl (Cipro) 500 Mg TABLET Ciprofloxacin Hcl (C ipro) 500 Mg TABLET 2019-08-10 00:00:00 No 250 Twice A Day [facility] Naproxen Naproxen 2019-08-10 00:00:00 No 500 Twice A Day [facility] Vital Signs Vital Name Observation Time Observation Value Comments Source Body Temperature 2019-08-13 09:27:00 98.1 [degF] [facility] BMI (Body Mass Index) 2019-08-10 16:15:00 28.2 kg/m2 [facility] Weight 2019-08-10 11:37:00 180 [lb_av] [facility] Body Temperature 2019-07-28 11:15:00 98.8 [degF] [facility] BMI (Body Mass Index) 2019-07-27 00:45:00 28.2 kg/m2 [facility] Weight 2019-07-26 12:16:00 180 [lb_av] [facility] Procedures This patient has no known procedures. Plan of Care Planned Activity Planned Date Details Comments Source Instructions Kidney Stones [facility] Encounters Start Date/Time End Date/Time Encounter Type Admission Type [facility] Care Department Encounter ID Source 2019-08-11 12:36:00 2019-08-13 10:53:00 Discharged Inpatient 1 RUTHY FRITZ [facility] [id number] [facility] 2019-07-27 09:27:00 2019-07-28 11:20:00 Discharged Inpatient 1 MT SAHU [facility] [id number] [facility] Results Test Description Test Time Test Comments Results Result Comments Source KIDNEY STONE ANALYSIS 2019-08-21 09:27:00 Test Item KIDNEY STONE ANALYSIS (test code = STONEK) SEE REPORT Stone AnalysisSource: Left UreterColor: Brown Size: 3x3 mm Multiple pieces received. Dimensions of the largest piece reported.Weight: 10 mgComposition: Percentage (Represents the % composition)Calcium Oxalate Dihydrate 100 %Photo: Photograph will follow under a separate coverComment: Physician questions regarding Calculi Analysis contact [facility] at: [phone].Please note: Calculi report will follow via computer, mail or vice president business & corporate development delivery.Disclaimer: This test was developed and its performance characteristics determined by [facility]. It has not been cleared or approved by the Food and Drug Administration. Test performed at: [employer] [facility] [address] [place] [address] [place] [address] SOURCE OF STONE (test code = STONESRC) SEE REPORT STONE ANALYSIS COMMENT (test code = STONECOM) SEE REPORT NIDUS STONE ANALYSIS (test code = STONE) SEE REPORT WEIGHT OF STONE (test code = STONEWT) SEE REPORT grams Test performed at: [address] [address] SPECIMEN COMMENTS: LEFT URETERAL STONESPECIMEN COMMENTS: COLLECTED DURING SURGER YSerum or plasma sodium measurement (moles/volume)2019-08-12 05:45:00* Test Item Value Reference Range Interpretation Comments Sodium Level (test code = 2951-2) 141 136-145 [facility] potassium measurement (moles/volume)2019-08-12 05:45:00* Test Item Value Reference Range Interpretation Comments Potassium Level (test code = 2823-3) 3.7 3.5-5.1 [facility] plasma chloride measurement (moles/volume)2019-08-12 05:45:00* Test Item Value Reference Range Interpretation Comments Chloride Level (test code = 2075-0) 106 98-107 [facility] or plasma carbon dioxide, total measurement (moles/volume)2019-08-12 05:45:00* Test Item Value Reference Range Interpretation Comments Carbon Dioxide Level (test code = 2028-9) 28 22-29 [facility] or plasma anion [id number] 05:45:00* Test Item Value Reference Range Interpretation Comments Anion Gap (test code = 42554-6) 10.7 8-16 [facility] or plasma urea nitrogen measurement (mass/volume)2019-08-12 05:45:00* Test Item Value Reference Range Interpretation Comments Blood Urea Nitrogen (test code = 3094-0) < 5 7-26 [facility] or plasma creatinine measurement (mass/volume)2019-08-12 05:45:00* Test Item Value Reference Range Interpretation Comments Creatinine (test code = 2160-0) 0.81 0.57-1.11 [facility] or plasma urea nitrogen/creatinine mass [id number] 05:45:00* Test Item Value Reference Range Interpretation Comments BUN/Creatinine Ratio (test code = 3097-3) 6 6-25 [facility] HospitalEstimated glomerular filtration rate (GFR) oylfzdpmztpgn8265-87-23 05:45:00* Test Item Value Reference Range Interpretation Comments Estimat Glomerular Filtration Rate (test code = 969431880) > 60 >60 Ranges were taken from the National Kidney Disease Education Program and the [facility] literature.Reference ranges:60 or greater: Jbeqdc16-54 ( for 3 consecutive months): Chronic kidney disease 15 or less: Kidney failureMemorial Hermann Southwest HospitalGlucose bpidekyzefc1628-96-38 05:45:00* Test Item Value Reference Range Interpretation Comments Glucose Level (test code = QBZ5687) 85 74-118 [facility] or plasma calcium measurement (mass/volume)2019-08-12 05:45:00* Test Item Value Reference Range Interpretation Comments Calcium Level (test code = 60173-6) 8.7 8.4-10.2 [facility] or plasma trough vancomycin level at trough (mass/volume)2019-08-11 13:34:00* Test Item Value Reference Range Interpretation Comments Vancomycin Level Trough (test code = 4092-3) 6.3 5.0-10.0 [facility] HospitalUrine color crnffenzovrnt9744-26-62 13:10:00* Test Item Value Reference Range Interpretation Comments Urine Color (test code = 5778-6) PINK YELLOW [facility] HospitalUrine gaycuoa7379-49-81 13:10:00* Test Item Value Reference Range Interpretation Comments Urine Clarity (test code = 47611-6) CLEAR CLEAR [facility] Hospital[facility] gravity of Urine by Test strip 2019-08-11 13:10:00* Test Item Value Reference Range Interpretation Comments Urine Specific Stewart (test code = 5811-5) 1.025 1.010-1.02 5 [facility] HospitalU[facility] pH measurement by automated test [id number] 13:10:00* Test Item Value Reference Range Interpretation Comments Urine pH (test code = 06924-6) 7 5-7 [facility] HospitalUrine leukocyte esterase detection by bfckxysx9914-48-77 13:10:00* Test Item Value Reference Range Interpretation Comments Urine Leukocyte Esterase (test code = 5799-2) NEGATIVE NEGATIVE [facility] HospitalUrine nitrite ecojmrsml2492-79-61 13:10:00* Test Item Value Reference Range Interpretation Comments Urine Nitrite (test code = 12295-7) NEGATIVE NEGATIVE [facility] HospitalUrine protein measurement by test strip (mass/volume)2019-08-11 13:10:00* Test Item Value Reference Range Interpretation Comments Urine Protein (test code = 5804-0) NEGATIVE NEGATIVE [facility] HospitalUrine glucose emqgurmtm9108-02-19 13:10:00* Test Item Value Reference Range Interpretation Comments Urine Glucose (UA) (test code = 2349-9) NEGATIVE NEGATIVE [facility] HospitalUrine ketones detection by automated test guhlu9350-04-07 13:10:00* Test Item Value Reference Range Interpretation Comments Urine Ketones (test code = 86084-2) NEGATIVE NEGATIVE [facility] HospitalUrine urobilinogen measurement by test strip (mass/volume)2019-08-11 13:10:00* Test Item Value Reference Range Interpretation Comments Urine Urobilinogen (test code = 85103-9) 0.2 0.2-1 [facility] HospitalU[facility] total bilirubin measurement (mass/volume)2019-08-11 13:10:00* Test Item Value Reference Range Interpretation Comments Urine Bilirubin (test code = 1978-6) NEGATIVE NEGATIVE [facility] HospitalUrine erythrocytes rfzduueee2429-38-76 13:10:00* Test Item Value Reference Range Interpretation Comments Urine Blood (test code = 48958-2) LARGE NEGATIVE [facility] HospitalAutomated urine sediment leukocyte count by microscopy (number/high power field)2019-08-11 13:10:00* Test Item Value Reference Range Interpretation Comments Urine WBC (test code = 5821-4) >50 0-5 [facility] HospitalErythrocytes detection in urine sediment by light xgdkdxjiie9567-98-84 13:10:00* Test Item Value Reference Range Interpretation Comments Urine RBC (test code = 04300-8) >50 0-5 [facility] HospitalBacteria detection in urine sediment by light ryqlypfaij0507-08-52 13:10:00* Test Item Value Reference Range Interpretation Comments Urine Bacteria (test code = 11593-7) MODERATE NONE [facility] HospitalEpithelial cells detection in urine sediment by light pjqbqhxxvh8693-23-31 13:10:00* Test Item Value Reference Range Interpretation Comments Urine Epithelial Cells (test code = 57166-7) FEW NONE [facility] HospitalBlood leukocytes automated count (number/volume)2019-08-11 04:50:00* Test Item Value Reference Range Interpretation Comments White Blood Count (test code = 6690-2) 5.92 4.8-10.8 [facility] HospitalBlood erythrocytes automated count (number/volume)2019-08-11 04:50:00* Test Item Value Reference Range Interpretation Comments Red Blood Count (test code = 789-8) 3.43 3.6-5.1 [facility] HospitalBlood hemoglobin measurement (moles/volume)2019-08-11 04:50:00* Test Item Value Reference Range Interpretation Comments Hemoglobin (test code = 34403-5) 10.5 12.0-16.0 [facility] HospitalAutomated blood hematocrit (volume fraction)2019-08-11 04:50:00* Test Item Value Reference Range Interpretation Comments Hematocrit (test code = 4544-3) 32.4 34.2-44.1 [facility] HospitalAutomated erythrocyte mean corpuscular cfijhe1618-18-78 04:50:00* Test Item Value Reference Range Interpretation Comments Mean Corpuscular Volume (test code = 787-2) 94.5 81-99 [facility] HospitalAutomated erythrocyte mean corpuscular hemoglobin (mass per erythrocyte)2019-08-11 04:50:00* Test Item Value Reference Range Interpretation Comments Mean Corpuscular Hemoglobin (test code = 785-6) 30.6 28-32 [facility] HospitalAutomated erythrocyte mean corpuscular hemoglobin concentration measurement (mass/volume)2019-08-11 04:50:00* Test Item Value Reference Range Interpretation Comments Mean Corpuscular Hemoglobin Concent (test code = 786-4) 32.4 31-35 [facility] HospitalRDW ZrbBx-Aat2933-52-05 04:50:00* Test Item Value Reference Range Interpretation Comments Red Cell Distribution Width (test code = 76568-0) 13.8 11.7 -14.4 [facility] HospitalAutomated blood platelet count (count/volume)2019-08-11 04:50:00* Test Item Value Reference Range Interpretation Comments Platelet Count (test code = 777-3) 195 140-360 [facility] HospitalAutomated blood segmented neutrophil count as percentage of total jhrkrnvsjj3289-98-41 04:50:00* Test Item Value Reference Range Interpretation Comments Neutrophils (%) (Auto) (test code = 12438-0) 46.6 38.7-80.0 [facility] HospitalAutomated blood lymphocyte count as percentage ot total urycqkbqtb4561-98-80 04:50:00* Test Item Value Reference Range Interpretation Comments Lymphocytes (%) (Auto) (test code = 736-9) 43.6 18.0-39.1 [facility] HospitalAutomated blood monocyte count as percentage of total ievbkgbakt1619-11-06 04:50:00* Test Item Value Reference Range Interpretation Comments Monocytes (%) (Auto) (test code = 5905-5) 8.3 4.4-11.3 [facility] HospitalAutomated blood eosinophil count as percentage of total pqnrlwmcwg4923-42-34 04:50:00* Test Item Value Reference Range Interpretation Comments Eosinophils (%) (Auto) (test code = 713-8) 0.5 0.0-6.0 [facility] HospitalAutomated blood basophil count as percentage of total axyfrjicxx8714-63-57 04:50:00* Test Item Value Reference Range Interpretation Comments Basophils (%) (Auto) (test code = 706-2) 0.7 0.0-1.0 [facility] HospitalFluoroscopic procedure less than one hour hqvcqokh1814-02-79 04:50:00* Test Item Value Reference Range Interpretation Comments IM GRANULOCYTES % (test code = IM GRANULOCYTES %) 0.3 0.0- 1.0 [facility] HospitalAutomated blood neutrophil count 2019-08-11 04:50:00* Test Item Value Reference Range Interpretation Comments Neutrophils # (Auto) (test code = 751-8) 2.8 2.1-6.9 [facility] HospitalBlood lymphocytes count (number/volume) 2019-08-11 04:50:00* Test Item Value Reference Range Interpretation Comments Lymphocytes # (Auto) (test code = 72118-8) 2.6 1.0-3.2 [facility] HospitalBlood monocytes automated count (number/volume)2019-08-11 04:50:00* Test Item Value Reference Range Interpretation Comments Monocytes # (Auto) (test code = 742-7) 0.5 0.2-0.8 [facility] HospitalAutomated blood eosinophil count 2019-08-11 04:50:00* Test Item Value Reference Range Interpretation Comments Eosinophils # (Auto) (test code = 711-2) 0.0 0.0-0.4 [facility] HospitalAutomated blood basophil count (count/volume)2019-08-11 04:50:00* Test Item Value Reference Range Interpretation Comments Basophils # (Auto) (test code = 704-7) 0.0 0.0-0.1 [facility] HospitalFluoroscopic procedure less than one hour lqkxjhar9348-02-32 04:50:00* Test Item Value Reference Range Interpretation Comments Absolute Immature Granulocyte (auto (caroline t code = Absolute Immature Granulocyte (auto) 0.02 0-0.1 [facility] Hospitalerum or plasma total bilirubin measurement (mass/volume)2019-08-11 04:50:00* Test Item Value Reference Range Interpretation Comments Total Bilirubin (test code = 1975-2) 0.4 0.2-1.2 [facility] HospitalFluoroscopic procedure less than one hour hxcwxbsm5535-86-83 04:50:00* Test Item Value Reference Range Interpretation Comments Aspartate Amino Transf (AST/SGOT) (test code = Aspartate Amino Transf (AST/SGOT)) 12 5-34 [facility] Hospitalerum or plasma alanine aminotransferase measurement (enzymatic activity/volume)2019-08-11 04:50:00* Test Item Value Reference Range Interpretation Comments Alanine Aminotransferase (ALT/SGPT) (test code = 1742-6) 7 0-55 [facility] Hospitalerum or plasma protein measurement (mass/volume)2019-08-11 04:50:00* Test Item Value Reference Range Interpretation Comments Total Protein (test code = 2885-2) 5.6 6.5-8.1 [facility] Hospitalerum or plasma albumin measurement (mass/volume)2019-08-11 04:50:00* Test Item Value Reference Range Interpretation Comments Albumin (test code = 1751-7) 3.1 3.5-5.0 [facility] HospitalPlasma globulin measurement (mass/volume) 2019-08-11 04:50:00* Test Item Value Reference Range Interpretation Comments Globulin (test code = 89384-8) 2.5 2.3-3.5 [facility] Hospitalerum or plasma albumin/globulin mass zpksl1830-32-09 04:50:00* Test Item Value Reference Range Interpretation Comments Albumin/Globulin Ratio (test code = 1759-0) 1.2 0.8-2.0 [facility] Hospitalerum or plasma alkaline phosphatase measurement (enzymatic activity/volume)2019-08-11 04:50:00* Test Item Value Reference Range Interpretation Comments Alkaline Phosphatase (test code = 6768-6) 45 40-150 [facility] HospitalCT ABD/PEL WO RDGJONYH-FXFX3259-38-04 12:55:00 [facility] [address] [place] [address] Patient Name: ORALIA RIOS MR #: [id number] : 1985 Age/Sex: 33/F Req #: [id number] Adm Physician: Ordered by: RUTHY FRITZ MD Report #: [id number] Location: [facility] Room/Bed: Procedure: [id number] HOPD/CT ABD/PEL WO CONTRAST-HOPD Exam Date: 08/10/19 Exam T emily: 1235 REPORT STATUS: Signed EXAM: CT Abdomen and Pelvis WITHOUT contrast INDICATION: adbominal apin [id number] 1235 N COMPARISON: KUB 07/26/2019 TECHNIQUE: Ab domen and pelvis were scanned utilizing a multidetector helical scanner from t he lung base to the pubic symphysis without administration of IV contrast. Abs ence of intravenous contrast decreases sensitivity for detection of focal lesi ons and vascular pathology. Coronal and sagittal reformations were obtained. R outine protocol was performed. IV CONTRAST: None. O RAL CONTRAST: Water RADIATION DOSE: Total DLP: 782.5 mGy*cm Estimated effective dose: (DLP x 0.015 x size factor) mSv COMPLICATIONS: None FINDINGS: LINES and TUBES: None. LOWER THORA X: Unremarkable HEPATOBILIARY: No focal hepatic lesions. No biliary d uctal dilation. GALLBLADDER: Cholecystectomy. SPLEEN: No splenomegaly . PANCREAS: No focal masses or ductal dilatation. ADRENALS: No adre nal nodules KIDNEYS/URETERS: No hydronephrosis. No cystic or solid mas s lesions. No stones. [There is stent with the proximal catheter at the level of the left renal pelvis, and distally at the level of the urinary bladder. T here is mild wall thickening of the distal left ureter but no surrounding fat stranding or fluid collections on series 2, image 72. GI TRACT: No abnorm al distention, wall thickening, or evidence of bowel obstruction. Scattered d iverticulosis throughout the colon without diverticulitis. Appendix is normal . PELVIC ORGANS/BLADDER: The urinary bladder is collapsed. The uterus is retroverted and normal in size. LYMPH NODES: No lymphadenopathy. VESSE LS: Unremarkable. PERITONEUM / RETROPERITONEUM: No free air or fluid. BONES: Unremarkable. SOFT TISSUES: Unremarkable. IMPRESSIO N: 1. Diverticulosis throughout the colon without diverticulitis. 2. Left ureteral stent in adequate position. No calcified stones or hydronephro sis. Nonspecific mild wall thickening of the distal left ureter at the uretera l bladder junction may be inflammatory or appears less likely to be infectious . Correlate with urinalysis. Signed by: Marylin Vasquez n 08/10/2019 1:08 PM Dictated By: DENA TUCKER MD Electronicall y Signed By: DENA TUCKER MD on 08/10/19 1308 Transcribed By: KB Vee on 08/10/19 1308 COPY TO: RUTHY FRITZ MD Blood culture 2019-08-10 11:55:00* Test Item Value Reference Range Interpretation Comments Blood Culture (test code = 62794958) NO GROWTH AFTER 48 HOURS [facility] ABD PELVIS W/[id number] 20:39:00 Name: ORALIA RIOS [facility] : 1985 Age/S: 33 / F [address] [facility] [id number] Loc: [facility] [place] [address] Phys: Harley Dill NP Acct: [id number] Di s Date: Status: REG ER PHONE #: Exam Date: 08/09/20191949 FAX #: Reason: diffuse abd pain, vomiting EXAMS: CPT CODE: [id number] CT ABD PELVIS W/CONT 68041 REASON FOR EXAM: diffuse abd pain, vomiting EXAM ORDER DATE: 08/09/2019 6:42 PM Ordering MMiguel: Nikky Dill NP PROCEDURE: Axial CT images were ac quired through the abdomen/pelvis at 5 mm intervals. Sagittal and coronal reformatted images were generated. Automated exposure control was utiliz ed for this reduction. Phases of contrast: venous and delaye d COMPARISON: CT abdomen and pelvis September 25, 2018 FINDINGS: Visualized thorax: Normal Hepatobiliary s ystem: Prior cholecystectomy. Hepatic parenchyma is within normal limits Pancreas: Normal Spleen: Normal Adrenal glands: Normal Genitourinary system: Left-sided ureteral stent is present and extends from the renal pelvis to the urinary bladder. The rig ht kidney and right ureter and reproductive organs are within normal limit s Gastrointestinal tract and appendix: There is fatty metaplasia o f the submucosa throughout the entire colon which may be sequela of previo us infection or inflammation. No pericolonic fat stranding is seen at this time to suggest active inflammation. The small bowel and stomach an d appendix are within normal limits Abdominal vascular structures: Normal Peritoneum and retroperitoneum: No free fluid or free air. No omental or mesenteric masses. No abnormal lymph nodes. Musculoskeletal structures and abdominal wall: Disc degeneration at L4-L5 PAGE 1 Signed Report (CONTINUED) Name: ORALIA RIOS [facility] : 1985 Age/S: 33 / F [address] [facility] Unit #: [id number] Loc: [place] [address] Phys: Harley Dill NP Acct: [id number] Di s Date: Status: REG ER PHONE #: [phone] Exam Date: 08/09/20191949 FAX #: [phone] Reason: diffuse abd pain, vomiting EXAMS: CPT CODE: [id number] CT ABD PELVIS W/CONT 95716 <Continued> IMPRESSION: No acute intra-abdominal process. Sequela of previous pancolonic inflammation and/or infection. However no pericolonic fat stranding to suggest an acute process. Locati on: [facility] at 203 9 Reported and signed by: Sridhar Houser MD CC: Aggie Angela MD; Nikky Dill NP Techn ologist:Mc Franco, RT(R)(CT); ... CTDI: DLP: Trnscb Date/Pelon e: 08/09/2019 (2038) t.[id number] Orig Print D/T: S: 020 (2041) PAGE 2 Signed Report URINALYSIS [id number] 20:13:00* Test Item Value Reference Range Interpretation Comments UA COLOR (test code = COLU) AJ YELLOW A UA APPEARANCE (test code = APPU) HAZY CLEAR A UA GLUCOSE DIPSTICK (test code = DGLUU) TRACE mg/dL NEGATIVE UA BILIRUBIN DIPSTICK (test code = BILU) 3+ (Large 6.0-10.0) NEGATI VE UA KETONE DIPSTICK (test code = KETU) 1+ mg/dL NEGATIVE UA SPECIFIC GRAVITY (test code = SGU) 1.020 1.001-1.035 UA BLOOD DIPSTICK (test code = MATILDE) 3+ (Large) NEGATIVE A UA PH DIPSTICK (test code = BERYL) 7.0 5.0-8.0 UA PROTEIN DIPSTICK (test code = PROU) >=300 (3+) mg/dL Neg-15 UA UROBILINIOGEN DIPSTICK (test code = URO) 4.0 (2+) mg/dL 0.0-0.2 UA NITRITE DIPSTICK (test code = HANSEL) POSITIVE NEGATIVE UA LEUKOCYTE ESTERASE W REFLEX (test code = LEUUR) 3+ NEG ATIVE A UA WBC (test code = WBCU) 11-20 per HPF 0-5 A UA RBC (test code = RBCU) >100 per HPF 0-5 UA EPITHELIAL CELLS (test code = EPIU) Few (2-5/hpf) per HPF Few UA BACTERIA (test code = BACU) FEW per HPF NONE UA RENAL CELLS (test code = RAFAEL) 0-2 per HPF NONE UA MUCUS (test code = MUCU) FEW per LPF NONE-FEW Urine Source? Clean CatchURINALYSIS [id number] 20:03:00* Test Item Value Reference Range Interpretation Comments UA COLOR (test code = COLU) AJ YELLOW A UA APPEARANCE (test code = APPU) HAZY CLEAR A UA GLUCOSE DIPSTICK (test code = DGLUU) TRACE mg/dL NEGATIVE UA BILIRUBIN DIPSTICK (test code = BILU) 3+ (Large 6.0-10.0) NEGATI VE UA KETONE DIPSTICK (test code = KETU) 1+ mg/dL NEGATIVE UA SPECIFIC GRAVITY (test code = SGU) 1.020 1.001-1.035 UA BLOOD DIPSTICK (test code = MATILDE) 3+ (Large) NEGATIVE A UA PH DIPSTICK (test code = BERYL) 7.0 5.0-8.0 UA PROTEIN DIPSTICK (test code = PROU) >=300 (3+) mg/dL Neg-15 UA UROBILINIOGEN DIPSTICK (test code = URO) 4.0 (2+) mg/dL 0.0-0.2 UA NITRITE DIPSTICK (test code = HANSEL) POSITIVE NEGATIVE UA LEUKOCYTE ESTERASE W REFLEX (test code = LEUUR) 3+ NEG ATIVE A UA WBC (test code = WBCU) per HPF 0-5 UA RBC (test code = RBCU) per HPF 0-5 UA EPITHELIAL CELLS (test code = EPIU) per HPF Few UA BACTERIA (test code = BACU) per HPF NONE Urine Source? Clean CatchBASIC METABOLIC [id number] 19:18:00* Test Item Value Reference Range Interpretation Comments SODIUM (test code = NA) 141 mmol/L 136-145 N POTASSIUM (test code = K) 3.8 mmol/L 3.5-5.1 N CHLORIDE (test code = CL) 110.0 mmol/L 98-107 H CARBON DIOXIDE (test code = CO2) 19.0 mmol/L 21-32 L ANION GAP (test code = GAP) 15.8 10-20 N GLUCOSE (test code = GLU) 149 mg/dL 74-106 H BLOOD UREA NITROGEN (test code = BUN) 10 mg/dL 7-18 N GLOMERULAR FILTRATION RATE (test code = GFR) > 60 mL/min >=60 Estimated GFR by using Modified MDRD formula.Chronic kidney disease is defined as either kidney damageor GFR <60 mL/min/1.73 m2 for >3 months. CREATININE (test code = CREAT) 0.90 mg/dL 0.55-1.02 N Note change in reference range due to change in reagent. BUN/CREATININE RATIO (test code = BUN/CREA) 11.2 10-20 N CALCIUM (test code = CA) 9.6 mg/dL 8.5-10.1 N HEPATIC FUNCTION [id number] 19:18:00* Test Item Value Reference Range Interpretation Comments TOTAL PROTEIN (test code = PROT) 8.8 gram/dL 6.4-8.2 H ALBUMIN (test code = ALB) 4.3 g/dL 3.4-5.0 N GLOBULIN (test code = GLOB) 4.5 gram/dL 2.7-4.2 H ALBUMIN/GLOBULIN RATIO (test code = A/G) 1.0 0.75-1.50 N BILIRUBIN TOTAL (test code = BILT) 0.50 mg/dL 0.0-1.0 N BILIRUBIN DIRECT (test code = BILD) 0.14 mg/dL 0.0-0.20 N SGOT/AST (test code = AST) 13 IUnit/L 15-37 L SGPT/ALT (test code = ALT) 15 IUnit/L 12-78 N ALKALINE PHOSPHATASE TOTAL (test code = ALKP) 76 IUnit/L 45-117 N Note change in reference range due to change in reagent. [id number] 19:18:00* Test Item Value Reference Range Interpretation Comments LIPASE (test code = LIP) 78 U/L 73.0-393.0 N HCG SERUM [id number] 19:18:00* Test Item Value Reference Range Interpretation Comments HCG SERUM QUAL (test code = HCGQL) NEGATIVE NEGATIVE This HCGQL test is NOT applicable for MALE patients.Check with nurse about probable order error.If Tumor Marker Test needed, nurse should order test "HCGTU"(Test #550.63417) BASIC METABOLIC [id number] 19:16:00* Test Item Value Reference Range Interpretation Comments SODIUM (test code = NA) 141 mmol/L 136-145 N POTASSIUM (test code = K) 3.8 mmol/L 3.5-5.1 N CHLORIDE (test code = CL) 110.0 mmol/L 98-107 H CARBON DIOXIDE (test code = CO2) 19.0 mmol/L 21-32 L ANION GAP (test code = GAP) 15.8 10-20 N GLUCOSE (test code = GLU) 149 mg/dL 74-106 H BLOOD UREA NITROGEN (test code = BUN) 10 mg/dL 7-18 N GLOMERULAR FILTRATION RATE (test code = GFR) > 60 mL/min >=60 Estimated GFR by using Modified MDRD formula.Chronic kidney disease is defined as either kidney damageor GFR <60 mL/min/1.73 m2 for >3 months. CREATININE (test code = CREAT) 0.90 mg/dL 0.55-1.02 N Note change in reference range due to change in reagent. BUN/CREATININE RATIO (test code = BUN/CREA) 11.2 10-20 N CALCIUM (test code = CA) 9.6 mg/dL 8.5-10.1 N HEPATIC FUNCTION [id number] 19:16:00* Test Item Value Reference Range Interpretation Comments TOTAL PROTEIN (test code = PROT) 8.8 gram/dL 6.4-8.2 H ALBUMIN (test code = ALB) 4.3 g/dL 3.4-5.0 N GLOBULIN (test code = GLOB) 4.5 gram/dL 2.7-4.2 H ALBUMIN/GLOBULIN RATIO (test code = A/G) 1.0 0.75-1.50 N BILIRUBIN TOTAL (test code = BILT) 0.50 mg/dL 0.0-1.0 N BILIRUBIN DIRECT (test code = BILD) 0.14 mg/dL 0.0-0.20 N SGOT/AST (test code = AST) 13 IUnit/L 15-37 L SGPT/ALT (test code = ALT) 15 IUnit/L 12-78 N ALKALINE PHOSPHATASE TOTAL (test code = ALKP) 76 IUnit/L 45-117 N Note change in reference range due to change in reagent. [id number] 19:16:00* Test Item Value Reference Range Interpretation Comments LIPASE (test code = LIP) 78 U/L 73.0-393.0 N HCG SERUM [id number] 19:16:00* Test Item Value Reference Range Interpretation Comments HCG SERUM QUAL (test code = HCGQL) NEGATIVE BASIC METABOLIC [id number] 19:08:00* Test Item Value Reference Range Interpretation Comments SODIUM (test code = NA) 141 mmol/L 136-145 N POTASSIUM (test code = K) 3.8 mmol/L 3.5-5.1 N CHLORIDE (test code = CL) 110.0 mmol/L 98-107 H CARBON DIOXIDE (test code = CO2) mmol/L 21-32 ANION GAP (test code = GAP) 10-20 GLUCOSE (test code = GLU) mg/dL 74-106 BLOOD UREA NITROGEN (test code = BUN) mg/dL 7-18 GLOMERULAR FILTRATION RATE (test code = GFR) mL/min >=60 CREATININE (test code = CREAT) mg/dL 0.55-1.02 BUN/CREATININE RATIO (test code = BUN/CREA) 10-20 CALCIUM (test code = CA) mg/dL 8.5-10.1 HEPATIC FUNCTION [id number] 19:08:00* Test Item Value Reference Range Interpretation Comments TOTAL PROTEIN (test code = PROT) gram/dL 6.4-8.2 ALBUMIN (test code = ALB) g/dL 3.4-5.0 GLOBULIN (test code = GLOB) gram/dL 2.7-4.2 ALBUMIN/GLOBULIN RATIO (test code = A/G) 0.75-1.50 BILIRUBIN TOTAL (test code = BILT) mg/dL 0.0-1.0 BILIRUBIN DIRECT (test code = BILD) mg/dL 0.0-0.20 SGOT/AST (test code = AST) IUnit/L 15-37 SGPT/ALT (test code = ALT) IUnit/L 12-78 ALKALINE PHOSPHATASE TOTAL (test code = ALKP) IUnit/L 45-117 [id number] 19:08:00* Test Item Value Reference Range Interpretation Comments LIPASE (test code = LIP) U/L 73.0-393.0 HCG SERUM [id number] 19:08:00* Test Item Value Reference Range Interpretation Comments HCG SERUM QUAL (test code = HCGQL) NEGATIVE CBC W/O [id number] 18:51:00* Test Item Value Reference Range Interpretation Comments WHITE BLOOD CELL (test code = WBC) 14.9 K/mm3 4.5-12.5 H RED BLOOD CELL (test code = RBC) 4.65 mill/mm3 3.7-5.2 N HEMOGLOBIN (test code = HGB) 14.8 gram/dL 11.5-15.5 N HEMATOCRIT (test code = HCT) 43.8 % 36.0-46.0 N MEAN CELL VOLUME (test code = MCV) 94.2 fL 80-98 N MEAN CELL HGB (test code = MCH) 31.8 picogram 27.0-33.0 N MEAN CELL HGB CONCETRATION (test code = MCHC) 33.8 gram/dL 33.0-36. 0 N RED CELL DISTRIBUTION WIDTH (test code = RDW) 13.9 % 11.6-16. 2 N PLATELET COUNT (test code = PLT) 389 K/mm3 150-450 N MEAN PLATELET VOLUME (test code = MPV) 9.9 fL 6.7-11.0 N Blood leukocytes automated count (number/volume)2019-07-27 05:45:00* Test Item Value Reference Range Interpretation Comments White Blood Count (test code = 6690-2) 6.72 4.8-10.8 [facility] count (number/volume)2019-07-27 05:45:00* Test Item Value Reference Range Interpretation Comments Red Blood Count (test code = 789-8) 3.79 3.6-5.1 [facility] measurement (moles/volume)2019-07-27 05:45:00* Test Item Value Reference Range Interpretation Comments Hemoglobin (test code = 57126-1) 11.8 12.0-16.0 [facility] HospitalAutomated blood hematocrit (volume fraction)2019-07-27 05:45:00* Test Item Value Reference Range Interpretation Comments Hematocrit (test code = 4544-3) 36.2 34.2-44.1 [facility] HospitalAutomated erythrocyte mean corpuscular [id number] 05:45:00* Test Item Value Reference Range Interpretation Comments Mean Corpuscular Volume (test code = 787-2) 95.5 81-99 [facility] HospitalAutomated erythrocyte mean corpuscular hemoglobin (mass per erythrocyte)2019-07-27 05:45:00* Test Item Value Reference Range Interpretation Comments Mean Corpuscular Hemoglobin (test code = 785-6) 31.1 28-32 [facility] HospitalAutom[facility] erythrocyte mean corpuscular hemoglobin concentration measurement (mass/volume)2019-07-27 05:45:00* Test Item Value Reference Range Interpretation Comments Mean Corpuscular Hemoglobin Concent (test code = 786-4) 32.6 31-35 [facility] HospitalRDW [id number]-[id number] 05:45:00* Test Item Value Reference Range Interpretation Comments Red Cell Distribution Width (test code = 40180-3) 13.8 11.7 -14.4 [facility] HospitalAutom[facility] blood platelet count (count/volume)2019-07-27 05:45:00* Test Item Value Reference Range Interpretation Comments Platelet Count (test code = 777-3) 188 140-360 [facility] HospitalAutom[facility] blood segmented neutrophil count as percentage of total rmbztkviiw1077-81-01 05:45:00* Test Item Value Reference Range Interpretation Comments Neutrophils (%) (Auto) (test code = 68806-2) 42.4 38.7-80.0 [facility] HospitalAutom[facility] blood lymphocyte count as percentage ot total jkocspgffc2828-50-74 05:45:00* Test Item Value Reference Range Interpretation Comments Lymphocytes (%) (Auto) (test code = 736-9) 45.5 18.0-39.1 [facility] HospitalAutom[facility] blood monocyte count as percentage of total zyryvwwxhn5716-42-57 05:45:00* Test Item Value Reference Range Interpretation Comments Monocytes (%) (Auto) (test code = 5905-5) 11.0 4.4-11.3 [facility] HospitalAutomated blood eosinophil count as percentage of total vpipsjtskz0849-92-70 05:45:00* Test Item Value Reference Range Interpretation Comments Eosinophils (%) (Auto) (test code = 713-8) 0.6 0.0-6.0 [facility] HospitalAutom[facility] blood basophil count as percentage of total hpvhazlmuv9854-99-91 05:45:00* Test Item Value Reference Range Interpretation Comments Basophils (%) (Auto) (test code = 706-2) 0.4 0.0-1.0 [facility] HospitalFluoroscopic procedure less than one hour jdlvozgc3083-09-90 05:45:00* Test Item Value Reference Range Interpretation Comments IM GRANULOCYTES % (test code = IM GRANULOCYTES %) 0.1 0.0- 1.0 [facility] HospitalAutom[facility] blood neutrophil count 2019-07-27 05:45:00* Test Item Value Reference Range Interpretation Comments Neutrophils # (Auto) (test code = 751-8) 2.8 2.1-6.9 [facility]Blood lymphocytes count (number/volume) 2019-07-27 05:45:00* Test Item Value Reference Range Interpretation Comments Lymphocytes # (Auto) (test code = 34042-9) 3.1 1.0-3.2 [facility]Blood monocytes automated count (number/volume)2019-07-27 05:45:00* Test Item Value Reference Range Interpretation Comments Monocytes # (Auto) (test code = 742-7) 0.7 0.2-0.8 [facility] HospitalAutomated blood eosinophil count 2019-07-27 05:45:00* Test Item Value Reference Range Interpretation Comments Eosinophils # (Auto) (test code = 711-2) 0.0 0.0-0.4 [facility] HospitalAutomated blood basophil count (count/volume)2019-07-27 05:45:00* Test Item Value Reference Range Interpretation Comments Basophils # (Auto) (test code = 704-7) 0.0 0.0-0.1 [facility] HospitalFluoroscopic procedure less than one hour wiclledh9535-10-33 05:45:00* Test Item Value Reference Range Interpretation Comments Absolute Immature Granulocyte (auto (caroline t code = Absolute Immature Granulocyte (auto) 0.01 0-0.1 [facility] Hospitalerum or plasma sodium measurement (moles/volume)2019-07-27 05:45:00* Test Item Value Reference Range Interpretation Comments Sodium Level (test code = 2951-2) 141 136-145 [facility] Hospitalerum or plasma potassium measurement (moles/volume)2019-07-27 05:45:00* Test Item Value Reference Range Interpretation Comments Potassium Level (test code = 2823-3) 3.9 3.5-5.1 [facility] Hospitalerum or plasma chloride measurement (moles/volume)2019-07-27 05:45:00* Test Item Value Reference Range Interpretation Comments Chloride Level (test code = 2075-0) 108 98-107 [facility] Hospitalerum or plasma carbon dioxide, total measurement (moles/volume)2019-07-27 05:45:00* Test Item Value Reference Range Interpretation Comments Carbon Dioxide Level (test code = 2028-9) 27 22-29 [facility] Hospitalerum or plasma anion zqc3924-49-85 05:45:00* Test Item Value Reference Range Interpretation Comments Anion Gap (test code = 15836-1) 9.9 8-16 [facility] Hospitalerum or plasma urea nitrogen measurement (mass/volume)2019-07-27 05:45:00* Test Item Value Reference Range Interpretation Comments Blood Urea Nitrogen (test code = 3094-0) 5 7-26 [facility] Hospitalerum or plasma creatinine measurement (mass/volume)2019-07-27 05:45:00* Test Item Value Reference Range Interpretation Comments Creatinine (test code = 2160-0) 0.78 0.57-1.11 [facility] Hospitalerum or plasma urea nitrogen/creatinine mass bjaia0169-90-14 05:45:00* Test Item Value Reference Range Interpretation Comments BUN/Creatinine Ratio (test code = 3097-3) 6 6-25 [facility] HospitalEstimated glomerular filtration rate (GFR) adlpytzfsizrx5153-64-90 05:45:00* Test Item Value Reference Range Interpretation Comments Estimat Glomerular Filtration Rate (test code = 156757191) > 60 >60 Ranges were taken from the National Kidney Disease Education Program and the [facility] literature.Reference ranges:60 or greater: Ikynfm64-26 ( for 3 consecutive months): Chronic kidney disease 15 or less: Kidney failureMemorial Hermann Southwest HospitalGlucose rpmgaxonhzz1309-35-50 05:45:00* Test Item Value Reference Range Interpretation Comments Glucose Level (test code = MNM0414) 81 74-118 [facility] Hospitalerum or plasma calcium measurement (mass/volume)2019-07-27 05:45:00* Test Item Value Reference Range Interpretation Comments Calcium Level (test code = 37068-3) 8.4 8.4-10.2 [facility] HospitalFluoroscopic procedure less than one hour yspbjibb6927-70-34 18:48:00* Test Item Value Reference Range Interpretation Comments Coronavirus (PCR) (test code = Coronavirus (PCR)) NOT DETECTED NOTD ETECTED SARS-COV-2 (COVID19), HIGHRISK, RT-PCRNegative results do not preclude SARS-CoV- 2 infection and should not be used as the sole basis for patient management deci sions. Negative results must be combined with clinical observations, patient his tory, and epidemiological information. Optimum specimen types and timing for pea k viral levels during infections caused by SARS-CoV-2 have not been determined. Collection of multiple specimens ot types of specimens may be necessary to detec t virus. Improper specimen collection and handling, sequence variability under p rimers/probes, or organism present below the limit of detection may lead to fals e negative results. Positive and negative predictive values of testing are highl y dependent on prevalance. False negative test results are more likely when prev alence is high.The expected result is negative (not detected).The SARS-CoV-2 caroline t is intended for the qualitative detection of nucleic acid from SARS-CoV-2 in n asopharyngeal and oropharyngeal swab samples from patients who meet COVID-19 cli nical and or epidemiological criteria. For lower respiratory tract specimens, th e assay is submitted for authoriztion by FDA under an Emergency Use Authorizatio n (EUA). Testing methodology is real time RT-PCR. If received as separate collec tion devices, nasopharygeal and oropharyngeal specimens are combined for analysi s. Additional specimens may be split to a separate accession for analysi and rep orting as this test includes a single unit of service.Test results must be corre lated with clinical presentation and evaluated in the context of other laborator y and epidemiologic data. Test performance can be affected because the epidemiol ogy and clinical spectrum of infection caused by SARS-CoV-2 is not fully known. For example, the optimum types of specimens to collect and when during the cours e of infection these specimens are most likely to contain detectable viral RNA m ay not be known.This test has not been Food and Drug Administration (FDA) cleare d or approved and has been authorized by FDA under an Emergency Use Authorizatio n (EUA). The test is only authorized for the duration of the declaration that ci rcumstances exist justifying the authorization of emergency use of in vitro diag nostic tests for detection and/or diagnosis of SARS-CoV-2 under section 564(b) o f the Act, 21 U.S.C. section 360bbb-3(b)(1), unless the authorization is termina escobar or revoked sooner. [facility] are certified under the C linical Laboratory Improvement Amendments of 1988 (CLIA), 42 U.S.C. section 263a , to perform high complexity tests.Testing performed by [facility] [address] [place], [place] [phone] Director: Abraham Willis M.D.IA # [id number] [facility] ABDOMEN-1VIEW (KUB)2019-07-26 16:24:00 [facility] [address] [address] Patient Name: ORALIA RIOS MR #: [id number] : 1985 Age/Sex: 33/F Req #: [id number] Adm Physician: Ordered by: MT SAHU DO Report #: [id number] Location: ER Room/Bed: Procedure: [id number] DX/ABD OMEN-1VIEW (KUB) Exam Date: 07/26/19 Exam Time: 1540 REPORT STATUS: Signed Exam: KUB - 2 views Indication: Postprocedural Comparison: None Findings: Left internal nephroureteral stent in place. No radiographically apparent u rinary calculi. Nonobstructive bowel gas pattern. No free air. Status post cho lecystectomy. No acute osseous injury. Partially visualized lung bases appear clear. Impression: Left internal nephroureteral stent in place. No radiog raphically apparent renal calculi. Nonobstructive bowel gas pattern. No f ree air. Signed by: Kathya Pearson MD on 07/26/2019 4:25 PM Dictated By: KATHYA PEARSON MD 5284 Transc ribed By: ARNALDO on 07/26/19 1625 COPY TO: MT SAHU DO [id number] 15:55:00 RUN DATE: 07/26/19 [facility] PAGE 1 RUN TIME: 1555 Specimen Inqui ry RUN USER: INTERFACE PATIENT: ORALIA RIOS ACCT #: V [id number] LOC: KIM U #: [id number] AGE/SX: 33/F ROOM: [facility] RE07/22/19REG DR: Rustam Tipton MD : 81 BED: B DIS: 07/25/19 STATUS: DIS IN TLOC: SPEC #: [id number] RECD: 07/25/19 STATUS: ANA QUIÑONES #: [id number] ROYAL: 07/25/19- SUBM DR: Rustam Tipton MD ENTERED: 07/25/19 SP TYPE: CALCULI OTHR DR: Marybeth peres or Family Physician Dane Sterling MDORDERED: ALICIA COPIES TO: No Primary or Family Physician Rustam Tipton MD [address] [place] [address] H Dane miller MD [address] [place] [address] PROCEDU RES: ALICIA (07/25/19-1135) TISSUES: URETER, NOS - [facility] HISTORY COLLECTION DATE: 07/25/19 STONE FINAL DIAGNOSIS Le ft ureteral stone, removal: CALCULUS FRAGMENTS TO BE SENT FOR CHEMICAL AN ALYSIS DMW/zenaida D [address]11 MACROSCOPIC The specimen is re ceived in a container labeled with the patient's name and identified as "left ureteral stone". It consists of three jolly calculi/calculi fragments measuring 0.3 cm in aggregate. ALICIA PERFORMED AT [facility] CONTINUED ON NEXT PAGE RUN DATE : 07/26/19 [facility] PAGE 2 RUN TIME: 1555 Specimen Inquiry RUN USER: INTERFACE SPEC #: [id number] PATIENT: ORALIA RIOS #V [id number] (Continued) MACROSCOPIC ([place] d) [facility] [address] [place] [address] (P)[phone] Signed SIGNATURE ON FILE W Lisbet wilder MD 07/26/19 1554 END OF REPORT Urine human chorionic gonadotropin (hCG) jfgxffhdg0633-16-76 14:42:00* Test Item Value Reference Range Interpretation Comments Urine Test (test code = 2106-3) NEGATIVE NEGATIVE [facility] HospitalUrine human chorionic gonadotropin (hCG) kdidhciph7808-47-53 14:42:00* Test Item Value Reference Range Interpretation Comments Urine Test (test code = 2106-3) NEGATIVE NEGATIVE [facility] HospitalCHEST SINGLE (PORTABLE)2019-07-26 13:23:00 [facility] [address] [place] [address] Patient Name: ORALIA RIOS MR #: [id number] : 1985 Age/Sex: 33/F Req #: [id number] Adm Physician: Ordered by: MT SAHU DO Report #: [id number] Location: ER Room/Bed: Procedure: [id number] DX/ABEBA ST SINGLE (PORTABLE) Exam Date: 07/26/19 Exam Time: 1300 REPORT STATUS: Signed EXAMI NATION: CHEST SINGLE (PORTABLE) INDICATION: Chest pain COMPARISON : None FINDINGS: LINES/TUBES:None LUNGS:The lungs are well-i nflated. No focal consolidation or pulmonary edema. PLEURA:No pleural effus ion or pneumothorax. MEDIASTINUM:The cardiomediastinal silhouette appears n ormal in size and shape. BONES/SOFT TISSUES:No acute osseous injury. A BDOMEN:No free air under the diaphragm. IMPRESSION: No focal pneumoni a or pulmonary edema. Signed by: Kathya Pearson MD on 07/26/2019 1:24 PM Dictated By: KATHYA PEARSON MD 1324 Transcribed By: ARNALDO on 07/26/19 1324 COPY TO: MT SAHU DO Urine color xhuyckqjeamet8705-57-69 12:25:00* Test Item Value Reference Range Interpretation Comments Urine Color (test code = 5778-6) RED YELLOW [facility] oxpnweq1449-13-97 12:25:00* Test Item Value Reference Range Interpretation Comments Urine Clarity (test code = 71797-3) TURBID CLEAR [facility] Hospital[facility] gravity of Urine by Test strip 2019-07-26 12:25:00* Test Item Value Reference Range Interpretation Comments Urine Specific Stewart (test code = 5811-5) 1.030 1.010-1.02 5 [facility] pH measurement by automated test wmabs7752-44-77 12:25:00* Test Item Value Reference Range Interpretation Comments Urine pH (test code = 52926-6) 7 5-7 [facility] Hospital[facility] leukocyte esterase detection by gukgmank2085-06-56 12:25:00* Test Item Value Reference Range Interpretation Comments Urine Leukocyte Esterase (test code = 5799-2) SMALL NEGATIVE [facility] Hospital[facility]rine nitrite epxsbxfwn5500-74-06 12:25:00* Test Item Value Reference Range Interpretation Comments Urine Nitrite (test code = 07225-4) NEGATIVE NEGATIVE [facility] protein measurement by test strip (mass/volume)2019-07-26 12:25:00* Test Item Value Reference Range Interpretation Comments Urine Protein (test code = 5804-0) >=300 NEGATIVE [facility] HospitalUrine glucose guxaaixme6144-92-62 12:25:00* Test Item Value Reference Range Interpretation Comments Urine Glucose (UA) (test code = 2349-9) NEGATIVE NEGATIVE [facility] HospitalUrine ketones detection by automated test kziga3650-24-70 12:25:00* Test Item Value Reference Range Interpretation Comments Urine Ketones (test code = 94834-5) 2+ NEGATIVE [facility] HospitalUrine urobilinogen measurement by test strip (mass/volume)2019-07-26 12:25:00* Test Item Value Reference Range Interpretation Comments Urine Urobilinogen (test code = 66770-1) 0.2 0.2-1 [facility] total bilirubin measurement (mass/volume)2019-07-26 12:25:00* Test Item Value Reference Range Interpretation Comments Urine Bilirubin (test code = 1978-6) SMALL NEGATIVE [facility] Hospital[facility] erythrocytes gwvelzofg5388-80-21 12:25:00* Test Item Value Reference Range Interpretation Comments Urine Blood (test code = 45046-0) LARGE NEGATIVE [facility] HospitalAutomated urine sediment leukocyte count by microscopy (number/high power field)2019-07-26 12:25:00* Test Item Value Reference Range Interpretation Comments Urine WBC (test code = 5821-4) 0-5 0-5 [facility] [facility] detection in [facility] sediment by light [id number] 12:25:00* Test Item Value Reference Range Interpretation Comments Urine RBC (test code = 95257-6) >50 0-5 [facility] HospitalBacteria detection in urine sediment by light [id number] 12:25:00* Test Item Value Reference Range Interpretation Comments Urine Bacteria (test code = 30754-3) RARE NONE [facility] HospitalEpithelial cells detection in urine sediment by light [id number] 12:25:00* Test Item Value Reference Range Interpretation Comments Urine Epithelial Cells (test code = 25258-5) RARE NONE [facility] total bilirubin measurement (mass/volume)2019-07-26 12:25:00* Test Item Value Reference Range Interpretation Comments Total Bilirubin (test code = 1975-2) 0.7 0.2-1.2 [facility] HospitalFluoroscopic procedure less than one hour [id number] 12:25:00* Test Item Value Reference Range Interpretation Comments Aspartate Amino Transf (AST/SGOT) (test code = Aspartate Amino Transf (AST/SGOT)) 14 5-34 [facility] Hospitaler[facility] or plasma alanine aminotransferase measurement (enzymatic activity/volume)2019-07-26 12:25:00* Test Item Value Reference Range Interpretation Comments Alanine Aminotransferase (ALT/SGPT) (test code = 1742-6) 14 0-55 [facility]er[facility] or plasma protein measurement (mass/volume)2019-07-26 12:25:00* Test Item Value Reference Range Interpretation Comments Total Protein (test code = 2885-2) 7.9 6.5-8.1 [facility] plasma albumin measurement (mass/volume)2019-07-26 12:25:00* Test Item Value Reference Range Interpretation Comments Albumin (test code = 1751-7) 4.6 3.5-5.0 [facility] HospitalPlasma globulin measurement (mass/volume) 2019-07-26 12:25:00* Test Item Value Reference Range Interpretation Comments Globulin (test code = 44116-7) 3.3 2.3-3.5 [facility]er[facility] or plasma albumin/globulin mass [id number] 12:25:00* Test Item Value Reference Range Interpretation Comments Albumin/Globulin Ratio (test code = 1759-0) 1.4 0.8-2.0 [facility] or plasma alkaline phosphatase measurement (enzymatic activity/volume)2019-07-26 12:25:00* Test Item Value Reference Range Interpretation Comments Alkaline Phosphatase (test code = 6768-6) 67 40-150 [facility] or plasma creatine kinase measurement (enzymatic activity/volume)2019-07-26 12:25:00* Test Item Value Reference Range Interpretation Comments Creatine Kinase (test code = 2157-6) 29-168 [facility] or plasma creatine kinase MB measurement (mass/volume)2019-07-26 12:25:00* Test Item Value Reference Range Interpretation Comments Creatine Kinase MB (test code = 15490-2) 0.60 0-5.0 [facility] HospitalTroponin I measurement by highly sensitive enzyme [id number] 12:25:00* Test Item Value Reference Range Interpretation Comments Troponin I (test code = 93920-7) 0.006 0-0.300 [facility]er[facility] or plasma creatine kinase measurement (enzymatic activity/volume)2019-07-26 12:25:00* Test Item Value Reference Range Interpretation Comments Creatine Kinase (test code = 2157-6) 168 [facility] Hospitalerum or plasma creatine kinase MB measurement (mass/volume)2019-07-26 12:25:00* Test Item Value Reference Range Interpretation Comments Creatine Kinase MB (test code = 67707-3) 0.60 0-5.0 [facility] HospitalTroponin I measurement by highly sensitive enzyme [id number] 12:25:00* Test Item Value Reference Range Interpretation Comments Troponin I (test code = 72528-5) 0.006 0-0.300 [facility] HospitalBASIC METABOLIC [id number] 22:07:00 * Test Item Value Reference Range Interpretation Comments SODIUM (test code = NA) 141 mmol/L 128-145 N POTASSIUM (test code = K) 5.2 mmol/L 3.5-5.1 H CHLORIDE (test code = CL) 106.0 mmol/L 98-107 N CARBON DIOXIDE (test code = CO2) 25.4 mmol/L 22-29 N ANION GAP (test code = GAP) 15 mmol/L 10-20 N GLUCOSE (test code = GLU) 103 mg/dL 70-110 N BLOOD UREA NITROGEN (test code = BUN) 4 mg/dL 7-22 L GLOMERULAR FILTRATION RATE (test code = GFR) > 60 mL/min >=60 Estimated GFR by using Modified MDRD formula.Chronic kidney disease is defined as either kidney damageor GFR <60 mL/min/1.73 m2 for >3 months. CREATININE (test code = CREAT) 0.80 mg/dL 0.55-1.3 N BUN/CREATININE RATIO (test code = BUN/CREA) 5.0 10-20 L CALCIUM (test code = CA) 8.1 mg/dL 8.0-10.5 N BASIC METABOLIC [id number] 18:58:00* Test Item Value Reference Range Interpretation Comments SODIUM (test code = NA) 139 mmol/L 128-145 N POTASSIUM (test code = K) 4.2 mmol/L 3.5-5.1 N CHLORIDE (test code = CL) 102.0 mmol/L 98-107 N CARBON DIOXIDE (test code = CO2) 20.2 mmol/L 22-29 L ANION GAP (test code = GAP) 21 mmol/L 10-20 H GLUCOSE (test code = GLU) 163 mg/dL 70-110 H BLOOD UREA NITROGEN (test code = BUN) 4 mg/dL 7-22 L GLOMERULAR FILTRATION RATE (test code = GFR) > 60 mL/min >=60 Estimated GFR by using Modified MDRD formula.Chronic kidney disease is defined as either kidney damageor GFR <60 mL/min/1.73 m2 for >3 months. CREATININE (test code = CREAT) 1.01 mg/dL 0.55-1.3 N BUN/CREATININE RATIO (test code = BUN/CREA) 4.0 10-20 L CALCIUM (test code = CA) 9.8 mg/dL 8.0-10.5 N HEPATIC FUNCTION [id number] 18:58:00* Test Item Value Reference Range Interpretation Comments TOTAL PROTEIN (test code = PROT) 7.7 gram/dL 6.1-7.8 N ALBUMIN (test code = ALB) 4.2 g/dL 3.3-4.4 N GLOBULIN (test code = GLOB) 3.5 G/DL 1-10 N ALBUMIN/GLOBULIN RATIO (test code = A/G) 1.2 0.75-1.50 N BILIRUBIN TOTAL (test code = BILT) 0.50 mg/dL 0.2-1.2 N BILIRUBIN DIRECT (test code = BILD) 0.10 mg/dL 0.0-0.30 N SGOT/AST (test code = AST) 13 U/L 10-39 N SGPT/ALT (test code = ALT) 16 U/L 10-69 N ALKALINE PHOSPHATASE TOTAL (test code = ALKP) 62 U/L 50-139 N [id number] 18:58:00* Test Item Value Reference Range Interpretation Comments LIPASE (test code = LIP) 53 Unit/L 144-286 L HCG SERUM [id number] 18:58:00* Test Item Value Reference Range Interpretation Comments HCG SERUM QUAL (test code = HCGQL) NEGATIVE NEGATIVE This HCGQL test is NOT applicable for MALE patients.Check with nurse about probable order error.If Tumor Marker Test needed, nurse should order test "HCGTU"(Test #550.08550) BASIC METABOLIC [id number] 18:55:00* Test Item Value Reference Range Interpretation Comments SODIUM (test code = NA) 139 mmol/L 128-145 N POTASSIUM (test code = K) 4.2 mmol/L 3.5-5.1 N CHLORIDE (test code = CL) 102.0 mmol/L 98-107 N CARBON DIOXIDE (test code = CO2) 20.2 mmol/L 22-29 L ANION GAP (test code = GAP) 21 mmol/L 10-20 H GLUCOSE (test code = GLU) 163 mg/dL 70-110 H BLOOD UREA NITROGEN (test code = BUN) 4 mg/dL 7-22 L GLOMERULAR FILTRATION RATE (test code = GFR) > 60 mL/min >=60 Estimated GFR by using Modified MDRD formula.Chronic kidney disease is defined as either kidney damageor GFR <60 mL/min/1.73 m2 for >3 months. CREATININE (test code = CREAT) 1.01 mg/dL 0.55-1.3 N BUN/CREATININE RATIO (test code = BUN/CREA) 4.0 10-20 L CALCIUM (test code = CA) 9.8 mg/dL 8.0-10.5 N HEPATIC FUNCTION [id number] 18:55:00* Test Item Value Reference Range Interpretation Comments TOTAL PROTEIN (test code = PROT) gram/dL 6.4-8.2 ALBUMIN (test code = ALB) g/dL 3.4-5.0 GLOBULIN (test code = GLOB) G/DL 1-10 ALBUMIN/GLOBULIN RATIO (test code = A/G) 0.75-1.50 BILIRUBIN TOTAL (test code = BILT) mg/dL 0.0-1.0 BILIRUBIN DIRECT (test code = BILD) mg/dL 0.0-0.20 SGOT/AST (test code = AST) IUnit/L 15-37 SGPT/ALT (test code = ALT) IUnit/L 12-78 ALKALINE PHOSPHATASE TOTAL (test code = ALKP) IUnit/L 45-117 [id number] 18:55:00* Test Item Value Reference Range Interpretation Comments LIPASE (test code = LIP) U/L 73.0-393.0 HCG SERUM [id number] 18:55:00* Test Item Value Reference Range Interpretation Comments HCG SERUM QUAL (test code = HCGQL) NEGATIVE NEGATIVE This HCGQL test is NOT applicable for MALE patients.Check with nurse about probable order error.If Tumor Marker Test needed, nurse should order test "HCGTU"(Test #550.64499) BASIC METABOLIC [id number] 18:53:00* Test Item Value Reference Range Interpretation Comments SODIUM (test code = NA) mmol/L 136-145 POTASSIUM (test code = K) mmol/L 3.5-5.1 CHLORIDE (test code = CL) mmol/L 98-107 CARBON DIOXIDE (test code = CO2) mmol/L 21-32 ANION GAP (test code = GAP) mmol/L 10-20 GLUCOSE (test code = GLU) mg/dL 70-110 BLOOD UREA NITROGEN (test code = BUN) mg/dL 7-22 GLOMERULAR FILTRATION RATE (test code = GFR) mL/min >=60 CREATININE (test code = CREAT) mg/dL 0.55-1.02 BUN/CREATININE RATIO (test code = BUN/CREA) 10-20 CALCIUM (test code = CA) mg/dL 8.5-10.1 HEPATIC FUNCTION [id number] 18:53:00* Test Item Value Reference Range Interpretation Comments TOTAL PROTEIN (test code = PROT) gram/dL 6.4-8.2 ALBUMIN (test code = ALB) g/dL 3.4-5.0 GLOBULIN (test code = GLOB) G/DL 1-10 ALBUMIN/GLOBULIN RATIO (test code = A/G) 0.75-1.50 BILIRUBIN TOTAL (test code = BILT) mg/dL 0.0-1.0 BILIRUBIN DIRECT (test code = BILD) mg/dL 0.0-0.20 SGOT/AST (test code = AST) IUnit/L 15-37 SGPT/ALT (test code = ALT) IUnit/L 12-78 ALKALINE PHOSPHATASE TOTAL (test code = ALKP) IUnit/L 45-117 [id number] 18:53:00* Test Item Value Reference Range Interpretation Comments LIPASE (test code = LIP) U/L 73.0-393.0 HCG SERUM [id number] 18:53:00* Test Item Value Reference Range Interpretation Comments HCG SERUM QUAL (test code = HCGQL) NEGATIVE NEGATIVE This HCGQL test is NOT applicable for MALE patients.Check with nurse about probable order error.If Tumor Marker Test needed, nurse should order test "HCGTU"(Test #550.80913) CBC W/O [id number] 18:48:00* Test Item Value Reference Range Interpretation Comments WHITE BLOOD CELL (test code = WBC) 11.5 K/mm3 4.5-12.5 N RED BLOOD CELL (test code = RBC) 4.53 mill/mm3 3.7-5.2 N HEMOGLOBIN (test code = HGB) 14.1 gram/dL 11.5-15.5 N HEMATOCRIT (test code = HCT) 41.4 % 36.0-46.0 N MEAN CELL VOLUME (test code = MCV) 91.4 fL 80-98 N MEAN CELL HGB (test code = MCH) 31.1 picogram 27.0-33.0 N MEAN CELL HGB CONCETRATION (test code = MCHC) 34.1 gram/dL 33.0-36. 0 N RED CELL DISTRIBUTION WIDTH (test code = RDW) 13.0 % 11.6-16. 2 N RED CELL DISTRIBUTION WIDTH SD (test code = RDW-SD) 44.6 fL 37 .0-51.0 N PLATELET COUNT (test code = PLT) 279 K/mm3 150-450 RESULT VERIFIED BY REPEAT ANALYSIS MEAN PLATELET VOLUME (test code = MPV) 9.8 fL 6.7-11.0 N URINALYSIS [id number] 18:41:00* Test Item Value Reference Range Interpretation Comments UA COLOR (test code = COLU) RED YELLOW A UA APPEARANCE (test code = APPU) SLIGHT CLOUDY CLEAR A UA GLUCOSE DIPSTICK (test code = DGLUU) NEGATIVE mg/dL NEGATIVE UA BILIRUBIN DIPSTICK (test code = BILU) 1+ (Small 0.5-1.0) NEGATIV E UA KETONE DIPSTICK (test code = KETU) 3+ mg/dL NEGATIVE UA SPECIFIC GRAVITY (test code = SGU) 1.025 1.001-1.035 UA BLOOD DIPSTICK (test code = MATILDE) 3+ (Large) NEGATIVE A UA PH DIPSTICK (test code = BERYL) 6.5 5.0-8.0 UA PROTEIN DIPSTICK (test code = PROU) 100 (2+) mg/dL Neg-15 UA UROBILINIOGEN DIPSTICK (test code = URO) 1 mg/dL (1+) mg/dL 0.0 -0.2 UA NITRITE DIPSTICK (test code = HANSEL) POSITIVE NEGATIVE UA LEUKOCYTE ESTERASE DIPSTICK (test code = LEUU) TRACE uL NEGA TIVE A UA MICROSCOPIC NEEDED? (test code = UAMICRO) YES UA WBC (test code = WBCU) 5-10 per HPF 0-5 A UA RBC (test code = RBCU) TNTC per HPF 0-5 A UA EPITHELIAL CELLS (test code = EPIU) Few (2-5/hpf) per HPF Few UA BACTERIA (test code = BACU) FEW per HPF NONE UA MUCUS (test code = MUCU) FEW per LPF NONE-FEW Urine Source? Clean CatchURINALYSIS [id number] 18:34:00* Test Item Value Reference Range Interpretation Comments UA COLOR (test code = COLU) RED YELLOW A UA APPEARANCE (test code = APPU) SLIGHT CLOUDY CLEAR A UA GLUCOSE DIPSTICK (test code = DGLUU) NEGATIVE mg/dL NEGATIVE UA BILIRUBIN DIPSTICK (test code = BILU) 1+ (Small 0.5-1.0) NEGATIV E UA KETONE DIPSTICK (test code = KETU) 3+ mg/dL NEGATIVE UA SPECIFIC GRAVITY (test code = SGU) 1.025 1.001-1.035 UA BLOOD DIPSTICK (test code = MATILDE) 3+ (Large) NEGATIVE A UA PH DIPSTICK (test code = BERYL) 6.5 5.0-8.0 UA PROTEIN DIPSTICK (test code = PROU) 100 (2+) mg/dL Neg-15 UA UROBILINIOGEN DIPSTICK (test code = URO) 1 mg/dL (1+) mg/dL 0.0 -0.2 UA NITRITE DIPSTICK (test code = HANSEL) POSITIVE NEGATIVE UA LEUKOCYTE ESTERASE DIPSTICK (test code = LEUU) TRACE uL NEGA TIVE A UA MICROSCOPIC NEEDED? (test code = UAMICRO) UA WBC (test code = WBCU) per HPF 0-5 UA RBC (test code = RBCU) per HPF 0-5 UA EPITHELIAL CELLS (test code = EPIU) per HPF Few UA BACTERIA (test code = BACU) per HPF NONE Urine Source? Clean CatchBASIC METABOLIC [id number] 05:43:00* Test Item Value Reference Range Interpretation Comments SODIUM (test code = NA) 144 mmol/L 136-145 N POTASSIUM (test code = K) 4.0 mmol/L 3.5-5.1 N CHLORIDE (test code = CL) 110.0 mmol/L 98-107 H CARBON DIOXIDE (test code = CO2) 27.0 mmol/L 21-32 N ANION GAP (test code = GAP) 11.0 10-20 N GLUCOSE (test code = GLU) 80 mg/dL 74-106 N BLOOD UREA NITROGEN (test code = BUN) 4 mg/dL 7-18 L GLOMERULAR FILTRATION RATE (test code = GFR) > 60 mL/min >=60 Estimated GFR by using Modified MDRD formula.Chronic kidney disease is defined as either kidney damageor GFR <60 mL/min/1.73 m2 for >3 months. CREATININE (test code = CREAT) 0.60 mg/dL 0.55-1.02 N Note change in reference range due to change in reagent. BUN/CREATININE RATIO (test code = BUN/CREA) 6.3 10-20 L CALCIUM (test code = CA) 8.6 mg/dL 8.5-10.1 N BASIC METABOLIC [id number] 05:42:00* Test Item Value Reference Range Interpretation Comments SODIUM (test code = NA) 144 mmol/L 136-145 N POTASSIUM (test code = K) 4.0 mmol/L 3.5-5.1 N CHLORIDE (test code = CL) 110.0 mmol/L 98-107 H CARBON DIOXIDE (test code = CO2) mmol/L 21-32 ANION GAP (test code = GAP) 10-20 GLUCOSE (test code = GLU) mg/dL 74-106 BLOOD UREA NITROGEN (test code = BUN) mg/dL 7-18 GLOMERULAR FILTRATION RATE (test code = GFR) mL/min >=60 CREATININE (test code = CREAT) mg/dL 0.55-1.02 BUN/CREATININE RATIO (test code = BUN/CREA) 10-20 CALCIUM (test code = CA) mg/dL 8.5-10.1 CBC W/AUTO [id number] 05:07:00* Test Item Value Reference Range Interpretation Comments WHITE BLOOD CELL (test code = WBC) 5.6 K/mm3 4.5-12.5 N RED BLOOD CELL (test code = RBC) 3.98 mill/mm3 3.7-5.2 N HEMOGLOBIN (test code = HGB) 12.5 gram/dL 11.5-15.5 N HEMATOCRIT (test code = HCT) 37.5 % 36.0-46.0 N MEAN CELL VOLUME (test code = MCV) 94.2 fL 80-98 N MEAN CELL HGB (test code = MCH) 31.4 picogram 27.0-33.0 N MEAN CELL HGB CONCETRATION (test code = MCHC) 33.3 gram/dL 33.0-36. 0 N RED CELL DISTRIBUTION WIDTH (test code = RDW) 13.3 % 11.6-16. 2 N RED CELL DISTRIBUTION WIDTH SD (test code = RDW-SD) 46.1 fL 37 .0-51.0 N PLATELET COUNT (test code = PLT) 203 K/mm3 150-450 N MEAN PLATELET VOLUME (test code = MPV) 10.1 fL 6.7-11.0 N NEUTROPHIL % (test code = NT%) 38.4 % 39.0-69.0 L IMMATURE GRANULOCYTE % (test code = IG%) 0.2 % 0.0-5.0 N LYMPHOCYTE % (test code = LY%) 46.6 % 25.0-55.0 N MONOCYTE % (test code = MO%) 11.4 % 0.0-10.0 H EOSINOPHIL % (test code = EO%) 2.7 % 0.0-5.0 N BASOPHIL % (test code = BA%) 0.7 % 0.0-1.0 N NUCLEATED RBC % (test code = NRBC%) 0.0 % 0-0 N NEUTROPHIL # (test code = NT#) 2.15 K/mm3 1.8-7.7 N IMMATURE GRANULOCYTE # (test code = IG#) 0.01 x10 3/uL 0-0.03 N LYMPHOCYTE # (test code = LY#) 2.61 K/mm3 1.0-5.0 N MONOCYTE # (test code = MO#) 0.64 K/mm3 0-0.8 N EOSINOPHIL # (test code = EO#) 0.15 K/mm3 0.0-0.5 N BASOPHIL # (test code = BA#) 0.04 K/mm3 0.0-0.2 N NUCLEATED RBC # (test code = NRBC#) 0.00 K/mm3 0.0-0.1 N MANUAL DIFF REQUIRED (test code = MDIFF) NO HCG SERUM [id number] 14:43:00* Test Item Value Reference Range Interpretation Comments HCG SERUM QUAL (test code = HCGQL) NEGATIVE NEGATIVE This HCGQL test is NOT applicable for MALE patients.Check with nurse about probable order error.If Tumor Marker Test needed, nurse should order test "HCGTU"(Test #550.37704) SPECIMEN COMMENTS: ADD ON TO TODAYS AM LABCoronavirus 2018 nCoV Bedside 2019-07-24 11:12:00* Test Item Value Reference Range Interpretation Comments Coronavirus 2018 nCoV Bedside (test code = COVNONPUIBED) Negative CBC W/AUTO [id number] 05:41:00* Test Item Value Reference Range Interpretation Comments WHITE BLOOD CELL (test code = WBC) 5.9 K/mm3 4.5-12.5 N RED BLOOD CELL (test code = RBC) 3.84 mill/mm3 3.7-5.2 N HEMOGLOBIN (test code = HGB) 11.9 gram/dL 11.5-15.5 N HEMATOCRIT (test code = HCT) 35.5 % 36.0-46.0 L MEAN CELL VOLUME (test code = MCV) 92.4 fL 80-98 N MEAN CELL HGB (test code = MCH) 31.0 picogram 27.0-33.0 N MEAN CELL HGB CONCETRATION (test code = MCHC) 33.5 gram/dL 33.0-36. 0 N RED CELL DISTRIBUTION WIDTH (test code = RDW) 13.2 % 11.6-16. 2 N RED CELL DISTRIBUTION WIDTH SD (test code = RDW-SD) 45.1 fL 37 .0-51.0 N PLATELET COUNT (test code = PLT) 200 K/mm3 150-450 N MEAN PLATELET VOLUME (test code = MPV) 10.2 fL 6.7-11.0 N NEUTROPHIL % (test code = NT%) 41.8 % 39.0-69.0 N IMMATURE GRANULOCYTE % (test code = IG%) 0.2 % 0.0-5.0 N LYMPHOCYTE % (test code = LY%) 43.7 % 25.0-55.0 N MONOCYTE % (test code = MO%) 11.9 % 0.0-10.0 H EOSINOPHIL % (test code = EO%) 1.9 % 0.0-5.0 N BASOPHIL % (test code = BA%) 0.5 % 0.0-1.0 N NUCLEATED RBC % (test code = NRBC%) 0.0 % 0-0 N NEUTROPHIL # (test code = NT#) 2.45 K/mm3 1.8-7.7 N IMMATURE GRANULOCYTE # (test code = IG#) 0.01 x10 3/uL 0-0.03 N LYMPHOCYTE # (test code = LY#) 2.56 K/mm3 1.0-5.0 N MONOCYTE # (test code = MO#) 0.70 K/mm3 0-0.8 N EOSINOPHIL # (test code = EO#) 0.11 K/mm3 0.0-0.5 N BASOPHIL # (test code = BA#) 0.03 K/mm3 0.0-0.2 N NUCLEATED RBC # (test code = NRBC#) 0.00 K/mm3 0.0-0.1 N BASIC METABOLIC [id number] 05:35:00* Test Item Value Reference Range Interpretation Comments SODIUM (test code = NA) 142 mmol/L 136-145 N POTASSIUM (test code = K) 3.7 mmol/L 3.5-5.1 N CHLORIDE (test code = CL) 111.0 mmol/L 98-107 H CARBON DIOXIDE (test code = CO2) 26.0 mmol/L 21-32 N ANION GAP (test code = GAP) 8.7 10-20 L GLUCOSE (test code = GLU) 112 mg/dL 74-106 H BLOOD UREA NITROGEN (test code = BUN) 4 mg/dL 7-18 L GLOMERULAR FILTRATION RATE (test code = GFR) > 60 mL/min >=60 Estimated GFR by using Modified MDRD formula.Chronic kidney disease is defined as either kidney damageor GFR <60 mL/min/1.73 m2 for >3 months. CREATININE (test code = CREAT) 0.80 mg/dL 0.55-1.02 N Note change in reference range due to change in reagent. BUN/CREATININE RATIO (test code = BUN/CREA) 5.0 10-20 L CALCIUM (test code = CA) 8.5 mg/dL 8.5-10.1 N [id number] 05:35:00* Test Item Value Reference Range Interpretation Comments LIPASE (test code = LIP) 125 U/L 73.0-393.0 N BASIC METABOLIC [id number] 05:32:00* Test Item Value Reference Range Interpretation Comments SODIUM (test code = NA) 142 mmol/L 136-145 N POTASSIUM (test code = K) 3.7 mmol/L 3.5-5.1 N CHLORIDE (test code = CL) 111.0 mmol/L 98-107 H CARBON DIOXIDE (test code = CO2) mmol/L 21-32 ANION GAP (test code = GAP) 10-20 GLUCOSE (test code = GLU) mg/dL 74-106 BLOOD UREA NITROGEN (test code = BUN) mg/dL 7-18 GLOMERULAR FILTRATION RATE (test code = GFR) mL/min >=60 CREATININE (test code = CREAT) mg/dL 0.55-1.02 BUN/CREATININE RATIO (test code = BUN/CREA) 10-20 CALCIUM (test code = CA) mg/dL 8.5-10.1 [id number] 05:32:00* Test Item Value Reference Range Interpretation Comments LIPASE (test code = LIP) U/L 73.0-393.0 - XR ABDOMEN AP 1 [id number] 11:37:00 FAX: Mehul Flores [phone] [place]: B St: ADM FAX: Rustam Tipton MD [phone] FAX: Dane Cabrera MD [phone] Name: ORALIA RIOS [facility] : 1985 Age/S: 33/F [address] Unit #: [id number] Loc: V.3032 [place] [address] Phys: Dane Sterling MD Acct: [id number] Dis Date: Status: ADM IN ONE #: [phone] Exam Date: 07/23/2019 1055 FAX #: [phone] Reason: FOLLOW UP STONE, COMPARE TO CT ON CD THAT PATIE EXAMS: CPT CODE: [id number] XR ABDOMEN AP 1 V 26532 HISTORY: FOLL OW UP STONE, COMPARE TO CT ON CD THAT PATIENT HAS TECHNIQUE: AP a bdomen x-ray COMPARISON: Abdominal radiograph the previous mornin g FINDINGS: Nonobstructive bowel gas pattern. No signific ant stool burden. No intra-abdominal mass effect. Calcification in the left upper abdomen, possibly representing a renal sto ne, appears grossly unchanged from prior exam. Prior cholecystectomy. Visualized osseous structures are intact. Visualized t horax is within normal limits. IMPRESSION: N o change from prior exam. Left upper abdominal calcification, possibly r epresenting stone, is unchanged. Location: [facility] Denise ctronically Signed by Sridhar Houser MD on 07/23/2019 at 1137 Reported and signed by: Sridhar Houser MD CC: Mehul Turner MD; Rustam Tipton MD; Dane Sterling MD Technologist: Lucille Cruz RT(R); Nikky flores RT(R) Trnscrd Date/Time/By: 07/23/2019 (0666) : By: [email or web address] Orig Print D/T: S: 07/23/2019 (0763) PAGE 1 Signed Report BASIC METABOLIC [id number] 05:53:00* Test Item Value Reference Range Interpretation Comments SODIUM (test code = NA) 143 mmol/L 136-145 N POTASSIUM (test code = K) 3.4 mmol/L 3.5-5.1 L CHLORIDE (test code = CL) 110.0 mmol/L 98-107 H CARBON DIOXIDE (test code = CO2) 27.0 mmol/L 21-32 N ANION GAP (test code = GAP) 9.4 10-20 L GLUCOSE (test code = GLU) 79 mg/dL 74-106 N BLOOD UREA NITROGEN (test code = BUN) 4 mg/dL 7-18 L GLOMERULAR FILTRATION RATE (test code = GFR) > 60 mL/min >=60 Estimated GFR by using Modified MDRD formula.Chronic kidney disease is defined as either kidney damageor GFR <60 mL/min/1.73 m2 for >3 months. CREATININE (test code = CREAT) 0.60 mg/dL 0.55-1.02 N Note change in reference range due to change in reagent. BUN/CREATININE RATIO (test code = BUN/CREA) 6.5 10-20 L CALCIUM (test code = CA) 8.5 mg/dL 8.5-10.1 N [id number] 05:53:00* Test Item Value Reference Range Interpretation Comments LIPASE (test code = LIP) 90 U/L 73.0-393.0 N BASIC METABOLIC [id number] 05:40:00* Test Item Value Reference Range Interpretation Comments SODIUM (test code = NA) 143 mmol/L 136-145 N POTASSIUM (test code = K) 3.4 mmol/L 3.5-5.1 L CHLORIDE (test code = CL) 110.0 mmol/L 98-107 H CARBON DIOXIDE (test code = CO2) mmol/L 21-32 ANION GAP (test code = GAP) 10-20 GLUCOSE (test code = GLU) mg/dL 74-106 BLOOD UREA NITROGEN (test code = BUN) mg/dL 7-18 GLOMERULAR FILTRATION RATE (test code = GFR) mL/min >=60 CREATININE (test code = CREAT) mg/dL 0.55-1.02 BUN/CREATININE RATIO (test code = BUN/CREA) 10-20 CALCIUM (test code = CA) mg/dL 8.5-10.1 [id number] 05:40:00* Test Item Value Reference Range Interpretation Comments LIPASE (test code = LIP) U/L 73.0-393.0 CBC W/AUTO [id number] 05:22:00* Test Item Value Reference Range Interpretation Comments WHITE BLOOD CELL (test code = WBC) 5.7 K/mm3 4.5-12.5 N RED BLOOD CELL (test code = RBC) 4.03 mill/mm3 3.7-5.2 N HEMOGLOBIN (test code = HGB) 12.7 gram/dL 11.5-15.5 N HEMATOCRIT (test code = HCT) 37.4 % 36.0-46.0 N MEAN CELL VOLUME (test code = MCV) 92.8 fL 80-98 N MEAN CELL HGB (test code = MCH) 31.5 picogram 27.0-33.0 N MEAN CELL HGB CONCETRATION (test code = MCHC) 34.0 gram/dL 33.0-36. 0 N RED CELL DISTRIBUTION WIDTH (test code = RDW) 13.2 % 11.6-16. 2 N RED CELL DISTRIBUTION WIDTH SD (test code = RDW-SD) 45.2 fL 37 .0-51.0 N PLATELET COUNT (test code = PLT) 215 K/mm3 150-450 N MEAN PLATELET VOLUME (test code = MPV) 10.2 fL 6.7-11.0 N NEUTROPHIL % (test code = NT%) 49.0 % 39.0-69.0 N IMMATURE GRANULOCYTE % (test code = IG%) 0.4 % 0.0-5.0 N LYMPHOCYTE % (test code = LY%) 39.0 % 25.0-55.0 N MONOCYTE % (test code = MO%) 9.7 % 0.0-10.0 N EOSINOPHIL % (test code = EO%) 1.4 % 0.0-5.0 N BASOPHIL % (test code = BA%) 0.5 % 0.0-1.0 N NUCLEATED RBC % (test code = NRBC%) 0.0 % 0-0 N NEUTROPHIL # (test code = NT#) 2.79 K/mm3 1.8-7.7 N IMMATURE GRANULOCYTE # (test code = IG#) 0.02 x10 3/uL 0-0.03 N LYMPHOCYTE # (test code = LY#) 2.22 K/mm3 1.0-5.0 N MONOCYTE # (test code = MO#) 0.55 K/mm3 0-0.8 N EOSINOPHIL # (test code = EO#) 0.08 K/mm3 0.0-0.5 N BASOPHIL # (test code = BA#) 0.03 K/mm3 0.0-0.2 N NUCLEATED RBC # (test code = NRBC#) 0.00 K/mm3 0.0-0.1 N MANUAL DIFF REQUIRED (test code = MDIFF) NO - NM GASTRIC [id number] 14:33:00 FAX: Mehul Flores [phone] [place]: B St: ADM FAX: Rustam Tipton MD [phone] FAX: Joleen Flores [phone] Name: ORALIA RIOS [facility] : 1985 Age/S: 33/F [address] Unit #: [id number] Loc: V.3032 [place] [address] Phys: Joleen Flores [employer] Acct: [id number] Dis Date: Status: ADM IN ONE #: [phone] Exam Date: 07/22/2019 1420 FAX #: [phone] Reason: NAUSEA, ABDONINAL PAIN EXAMS: CPT CODE: [id number] NM GASTRIC EMPTYING 33881 HISTORY: NAUSE A, ABDONINAL PAIN EXAM: NUCLEAR MEDICINE GASTRIC EMPTYING STUDY. COMPARISON: None TECHNIQUE: After patient ingested 1 mCi TC 99m sulfur colloid mixed with oatmeal, sequential imaging was acqu ired over the anterior abdomen for 60 minutes. FINDINGS: There is no evidence of rapid gastric emptying (>70% at 1 hour for solid meal). T 1/2 for gastric emptying was calculated to be 40 minutes (normal < 110 minutes). IMPRESSION: Normal gastric emptying scan. Location: [facility] at 1433 Reported and signed by: Sridhar Houser MD CC: Mehul Turner MD; Rustam Tipton MD; Joleen Flores NP Technologist: AI JONES Trnscrd Date/Time/By: 07/22/2019 (6781) : By: [email or web address] Orig Print D/T: S: 07/22/2019 (4424) PAGE 1 Signed Report - XR ABDOMEN AP 1 [id number] 11:48:00 FAX: Mehul Flores [phone] [place]: B St: ADM FAX: Rustam Tipton MD [phone] FAX: Joleen Flores [phone] --------- Name: ORALIA RIOS [facility] : 1985 Age/S: 33/F [address] it #: [id number] Loc: V.3032 [place] [address] Phys: Joleen Flores [employer] Acct: [id number] Dis Date: Status: ADM IN ONE #: [phone] Exam Date: 07/22/2019 1138 FAX #: [phone] Reason: NAUSEA, ABDONINAL PAINKIDNEY STONE, HYDRONEPHRO EXAMS: CPT CODE: [id number] XR ABDOMEN AP 1 V [id number] HISTORY: NAUS EA, ABDONINAL PAINKIDNEY STONE, HYDRONEPHROSIS TECHNIQUE: AP abdo men x-ray COMPARISON: CT abdomen and pelvis September 25, 2018 FINDINGS: Nonobstructive bowel gas pattern. No significant sto ol burden. No intra-abdominal mass effect. Prior cholecystectomy. Visualized osseous structures are intact. Punctate calcif ication is seen in the left upper abdomen which may represent a small ston e in the renal pelvis. IMPRESSION: Possible small stone in the left renal pelvis. Otherwise radiographically unremar kable abdomen. Location: [facility] at 1148 Reported and si gned by: Sridhar Houser MD CC: Mehul Turner MD; Xiao Tipton MD; Joleen Flores NP Technologist: Masha Krishnamurthy RT(R); Nikky Son RT(R) Trnmatyler Date/Time/By: 07/22/2019 (1148) : By: [email or web address] Orig Print D/T: S: 07/22/2019 (0835) PAGE 1 Signed Report BASIC METABOLIC PANEL 2019-07-22 06:43:00* Test Item Value Reference Range Interpretation Comments SODIUM (test code = NA) 143 mmol/L 136-145 N POTASSIUM (test code = K) 3.9 mmol/L 3.5-5.1 N CHLORIDE (test code = CL) 109.0 mmol/L 98-107 H CARBON DIOXIDE (test code = CO2) 25.0 mmol/L 21-32 N ANION GAP (test code = GAP) 12.9 10-20 N GLUCOSE (test code = GLU) 69 mg/dL 74-106 L BLOOD UREA NITROGEN (test code = BUN) 5 mg/dL 7-18 L GLOMERULAR FILTRATION RATE (test code = GFR) > 60 mL/min >=60 Estimated GFR by using Modified MDRD formula.Chronic kidney disease is defined as either kidney damageor GFR <60 mL/min/1.73 m2 for >3 months. CREATININE (test code = CREAT) 0.60 mg/dL 0.55-1.02 N Note change in reference range due to change in reagent. BUN/CREATININE RATIO (test code = BUN/CREA) 8.3 10-20 L CALCIUM (test code = CA) 8.1 mg/dL 8.5-10.1 L [id number] 06:43:00* Test Item Value Reference Range Interpretation Comments LIPASE (test code = LIP) 52 U/L 73.0-393.0 L BASIC METABOLIC [id number] 06:35:00* Test Item Value Reference Range Interpretation Comments SODIUM (test code = NA) 143 mmol/L 136-145 N POTASSIUM (test code = K) 3.9 mmol/L 3.5-5.1 N CHLORIDE (test code = CL) 109.0 mmol/L 98-107 H CARBON DIOXIDE (test code = CO2) mmol/L 21-32 ANION GAP (test code = GAP) 10-20 GLUCOSE (test code = GLU) mg/dL 74-106 BLOOD UREA NITROGEN (test code = BUN) mg/dL 7-18 GLOMERULAR FILTRATION RATE (test code = GFR) mL/min >=60 CREATININE (test code = CREAT) mg/dL 0.55-1.02 BUN/CREATININE RATIO (test code = BUN/CREA) 10-20 CALCIUM (test code = CA) mg/dL 8.5-10.1 [id number] 06:35:00* Test Item Value Reference Range Interpretation Comments LIPASE (test code = LIP) U/L 73.0-393.0 CBC W/AUTO [id number] 05:59:00* Test Item Value Reference Range Interpretation Comments WHITE BLOOD CELL (test code = WBC) 5.9 K/mm3 4.5-12.5 N RED BLOOD CELL (test code = RBC) 3.69 mill/mm3 3.7-5.2 L HEMOGLOBIN (test code = HGB) 11.6 gram/dL 11.5-15.5 N HEMATOCRIT (test code = HCT) 34.8 % 36.0-46.0 L MEAN CELL VOLUME (test code = MCV) 94.3 fL 80-98 N MEAN CELL HGB (test code = MCH) 31.4 picogram 27.0-33.0 N MEAN CELL HGB CONCETRATION (test code = MCHC) 33.3 gram/dL 33.0-36. 0 N RED CELL DISTRIBUTION WIDTH (test code = RDW) 13.5 % 11.6-16. 2 N RED CELL DISTRIBUTION WIDTH SD (test code = RDW-SD) 47.0 fL 37 .0-51.0 N PLATELET COUNT (test code = PLT) 178 K/mm3 150-450 N MEAN PLATELET VOLUME (test code = MPV) 10.4 fL 6.7-11.0 N NEUTROPHIL % (test code = NT%) 41.2 % 39.0-69.0 N IMMATURE GRANULOCYTE % (test code = IG%) 0.2 % 0.0-5.0 N LYMPHOCYTE % (test code = LY%) 48.5 % 25.0-55.0 N MONOCYTE % (test code = MO%) 8.2 % 0.0-10.0 N EOSINOPHIL % (test code = EO%) 1.4 % 0.0-5.0 N BASOPHIL % (test code = BA%) 0.5 % 0.0-1.0 N NUCLEATED RBC % (test code = NRBC%) 0.0 % 0-0 N NEUTROPHIL # (test code = NT#) 2.43 K/mm3 1.8-7.7 N IMMATURE GRANULOCYTE # (test code = IG#) 0.01 x10 3/uL 0-0.03 N LYMPHOCYTE # (test code = LY#) 2.85 K/mm3 1.0-5.0 N MONOCYTE # (test code = MO#) 0.48 K/mm3 0-0.8 N EOSINOPHIL # (test code = EO#) 0.08 K/mm3 0.0-0.5 N BASOPHIL # (test code = BA#) 0.03 K/mm3 0.0-0.2 N NUCLEATED RBC # (test code = NRBC#) 0.00 K/mm3 0.0-0.1 N MANUAL DIFF REQUIRED (test code = MDIFF) NO DRUGS OF ABUSE SCREEN [id number] 19:47:00* Test Item Value Reference Range Interpretation Comments UA PH DIPSTICK (test code = BERYL) 7.0 5.0-8.0 URN COCAINE (test code = COCAURN) NEGATIVE <300 ng/mL URN CANNABINOIDS (test code = CANNABURN) POSITIVE <50 ng/mL A This test provides only a preliminary test result. A morespecific alternate chemical method must be used in order toobtain a confirmed analytical result. Gas chromatography/mass spectrometry (GC/MS) is thepreferred confirmatory method. Other chemical confirmationmethods are available. Clinical consideration and professional judgment should be applied to any drug of abusetest result, particularly when preliminary positive resultsare used.Unconfirmed screening results must not be used fornon-medical purposes (e.g., employment testing, legaltesting). URN AMPHETAMINE (test code = AMPHETURN) NEGATIVE <1000 ng/mL URN BARBITURATE (test code = BARBITURN) NEGATIVE <200 ng/mL URN BENZODIAZEPINE (test code = BENZOURN) NEGATIVE <200 ng/mL URN OPIATES (test code = OPIATURN) POSITIVE <300 ng/mL A This test provides only a preliminary test result. A morespecific alternate chemical method must be used in order toobtain a confirmed analytical result. Gas chromatography/mass spectrometry (GC/MS) is thepreferred confirmatory method. Other chemical confirmationmethods are available. Clinical consideration and professional judgment should be applied to any drug of abusetest result, particularly when preliminary positive resultsare used.Unconfirmed screening results must not be used fornon-medical purposes (e.g., employment testing, legaltesting). URN PHENCYCLIDINE (PCP) (test code = PHENCURN) NEGATIVE <25 ng/ mL URN METHADONE (test code = METHAURN) NEGATIVE <300 ng/mL DRUGS OF ABUSE SCREEN [id number] 19:44:00* Test Item Value Reference Range Interpretation Comments UA PH DIPSTICK (test code = BERYL) 7.0 5.0-8.0 URN COCAINE (test code = COCAURN) <300 ng/mL URN CANNABINOIDS (test code = CANNABURN) <50 ng/mL URN AMPHETAMINE (test code = AMPHETURN) <1000 ng/mL URN BARBITURATE (test code = BARBITURN) <200 ng/mL URN BENZODIAZEPINE (test code = BENZOURN) <200 ng/mL URN OPIATES (test code = OPIATURN) <300 ng/mL URN PHENCYCLIDINE (PCP) (test code = PHENCURN) <25 ng/ mL URN METHADONE (test code = METHAURN) <300 ng/mL SED [id number] 12:35:00* Test Item Value Reference Range Interpretation Comments SED RATE (test code = SEDW) 5 mm/hr 0-20 WINTROBE METHOD: NORMAL RANGE FOR MEN: 0-9 MM/HR WOMAN: 0-20 MM/HR SED RATE [id number] 12:34:00* Test Item Value Reference Range Interpretation Comments SED RATE WESTERGREN (test code = SEDW) 5 mm/hr 0-20 N CBC W/AUTO [id number] 10:29:00* Test Item Value Reference Range Interpretation Comments WHITE BLOOD CELL (test code = WBC) 8.1 K/mm3 4.5-12.5 N RED BLOOD CELL (test code = RBC) 3.68 mill/mm3 3.7-5.2 L HEMOGLOBIN (test code = HGB) 11.6 gram/dL 11.5-15.5 N HEMATOCRIT (test code = HCT) 34.5 % 36.0-46.0 L MEAN CELL VOLUME (test code = MCV) 93.8 fL 80-98 N MEAN CELL HGB (test code = MCH) 31.5 picogram 27.0-33.0 N MEAN CELL HGB CONCETRATION (test code = MCHC) 33.6 gram/dL 33.0-36. 0 N RED CELL DISTRIBUTION WIDTH (test code = RDW) 13.5 % 11.6-16. 2 N RED CELL DISTRIBUTION WIDTH SD (test code = RDW-SD) 46.3 fL 37 .0-51.0 N PLATELET COUNT (test code = PLT) 197 K/mm3 150-450 N MEAN PLATELET VOLUME (test code = MPV) 10.3 fL 6.7-11.0 N NEUTROPHIL % (test code = NT%) 48.8 % 39.0-69.0 N IMMATURE GRANULOCYTE % (test code = IG%) 0.1 % 0.0-5.0 N LYMPHOCYTE % (test code = LY%) 40.8 % 25.0-55.0 N MONOCYTE % (test code = MO%) 8.9 % 0.0-10.0 N EOSINOPHIL % (test code = EO%) 0.9 % 0.0-5.0 N BASOPHIL % (test code = BA%) 0.5 % 0.0-1.0 N NUCLEATED RBC % (test code = NRBC%) 0.0 % 0-0 N NEUTROPHIL # (test code = NT#) 3.97 K/mm3 1.8-7.7 N IMMATURE GRANULOCYTE # (test code = IG#) 0.01 x10 3/uL 0-0.03 N LYMPHOCYTE # (test code = LY#) 3.32 K/mm3 1.0-5.0 N MONOCYTE # (test code = MO#) 0.72 K/mm3 0-0.8 N EOSINOPHIL # (test code = EO#) 0.07 K/mm3 0.0-0.5 N BASOPHIL # (test code = BA#) 0.04 K/mm3 0.0-0.2 N NUCLEATED RBC # (test code = NRBC#) 0.00 K/mm3 0.0-0.1 N BASIC METABOLIC [id number] 09:37:00* Test Item Value Reference Range Interpretation Comments SODIUM (test code = NA) 143 mmol/L 136-145 N POTASSIUM (test code = K) 3.9 mmol/L 3.5-5.1 N CHLORIDE (test code = CL) 106.0 mmol/L 98-107 N CARBON DIOXIDE (test code = CO2) 25.0 mmol/L 21-32 N ANION GAP (test code = GAP) 15.9 10-20 N GLUCOSE (test code = GLU) 86 mg/dL 74-106 N BLOOD UREA NITROGEN (test code = BUN) 6 mg/dL 7-18 L GLOMERULAR FILTRATION RATE (test code = GFR) > 60 mL/min >=60 Estimated GFR by using Modified MDRD formula.Chronic kidney disease is defined as either kidney damageor GFR <60 mL/min/1.73 m2 for >3 months. CREATININE (test code = CREAT) 0.60 mg/dL 0.55-1.02 N Note change in reference range due to change in reagent. BUN/CREATININE RATIO (test code = BUN/CREA) 9.6 10-20 L CALCIUM (test code = CA) 8.7 mg/dL 8.5-10.1 N [id number] 09:37:00* Test Item Value Reference Range Interpretation Comments LIPASE (test code = LIP) 33 U/L 73.0-393.0 L BASIC METABOLIC [id number] 09:36:00* Test Item Value Reference Range Interpretation Comments SODIUM (test code = NA) 143 mmol/L 136-145 N POTASSIUM (test code = K) 3.9 mmol/L 3.5-5.1 N CHLORIDE (test code = CL) 106.0 mmol/L 98-107 N CARBON DIOXIDE (test code = CO2) mmol/L 21-32 ANION GAP (test code = GAP) 10-20 GLUCOSE (test code = GLU) mg/dL 74-106 BLOOD UREA NITROGEN (test code = BUN) mg/dL 7-18 GLOMERULAR FILTRATION RATE (test code = GFR) mL/min >=60 CREATININE (test code = CREAT) mg/dL 0.55-1.02 BUN/CREATININE RATIO (test code = BUN/CREA) 10-20 CALCIUM (test code = CA) mg/dL 8.5-10.1 [id number] 07:08:00* Test Item Value Reference Range Interpretation Comments CALCIUM (test code = CA) 8.7 mg/dL 8.5-10.1 N [id number] 07:08:00* Test Item Value Reference Range Interpretation Comments PHOSPHORUS (test code = PHOS) 3.9 mg/dL 2.5-4.9 N [id number] 07:08:00* Test Item Value Reference Range Interpretation Comments MAGNESIUM (test code = MAG) 2.4 mg/dL 1.8-2.4 N VITAMIN [id number] 07:08:00* Test Item Value Reference Range Interpretation Comments VITAMIN B12 (test code = VITB12) 210 pg/mL 193-986 N THYROID STIMULATING [id number] 07:08:00* Test Item Value Reference Range Interpretation Comments THYROID STIMULATING HORMONE (test code = TSH) 0.615 uIU/mL 0.36-3.7 4 N TSH REFERENCE RANGES: EUTHYROID: 0.35 - 4.3 mIU/mL HYPO : > 5.5 mIU/mL HYPER : < 0.35 mIU/mL [id number] 06:37:00* Test Item Value Reference Range Interpretation Comments CALCIUM (test code = CA) 8.7 mg/dL 8.5-10.1 N [id number] 06:37:00* Test Item Value Reference Range Interpretation Comments PHOSPHORUS (test code = PHOS) mg/dL 2.5-4.9 [id number] 06:37:00* Test Item Value Reference Range Interpretation Comments MAGNESIUM (test code = MAG) 2.4 mg/dL 1.8-2.4 N VITAMIN [id number] 06:37:00* Test Item Value Reference Range Interpretation Comments VITAMIN B12 (test code = VITB12) pg/mL 193-986 THYROID STIMULATING [id number] 06:37:00* Test Item Value Reference Range Interpretation Comments THYROID STIMULATING HORMONE (test code = TSH) uIU/mL 0.36-3.7 4 - CT ABD PELVIS [id number] 17:45:00Patient Name: ORALIA RIOS Unit No: [id number] EXAMS: CPT CODE: [id number] CT ABD PELVIS W/CONT 40677 Location code: H5 CT Abdomen and Pelvis with Contrast Indication: n/v and abd pain. Comparison: None. Technical factors: Axial images were obtained with contrast. Coronal and sagittal reconstruction. This exam was performed according to our departmental dose-optimization program, which includes automated exposure control, adjustment of the mA and/or kV according to patient size and/or use of iterative reconstruction technique. Contrast: 83 mL Isovue-300 IV. Findings: Lung bases are clear with no pleural effusion. 2.3 mm and 11 mm hepatic cysts. The biliary ducts are not dilated. Cholecystectomy. The spleen is unremarkable. The adrenal glands are unremarkable. The pancreas is unremarkable. A 4 x 1.4 mm calculus is present at the left ureteropelvic junction. No h ydronephrosis. Right kidney is unremarkable. IVC is unremarkable. Abdominal aorta is unremarkable for age. Bowel is unremarkable. Appendix is normal in appearance. Urina ry bladder is unremarkable. Uterus and adnexa are unremarkable.. No adenopathy, free fluid, or free air. No abnormal mass, edema, or focal fluid collection. Abdominal-pelvic wall is intact. Skeletal structures are normal for patient age. No ab normal enhancing lesion is seen. Name: ORALIA RIOS [facility] Phys: Xu Vasquez [address] : 1985 Age: 33 Sex: F [place], [place] [address] Loc: P.ERS Exam Date: 07/17/2019 Status: REG ER PH: FAX: PAGE 1 Signed Report (CONTINUE D) Patient Name: ORALIA RIOS Unit No: [id number] EX AMS: CPT CODE: [id number] CT A BD PELVIS W/CONT 98708 <Continued> Impression: 1. A 4 x 1.4 mm calculus is present at the left ureteropelvic junction. No hydronephrosis. Findings may cause intermittent obstruction. at 1745 Reported and signed by: Ricky MEJIA M.D. CC: Xu Santiago MD Technologist: Aggie Portillo CTDI: 20.37 DLP: 1000 Trscr Dt/Tm: 0 (1745) by:[email or web address] Printed Date/Time: 07/17/2019 (17 48) Name: ORALIA RIOS [facility] Phys: Xu Vasquez [address] DOB: 1985 Age: 33 Sex: [place] [address] Loc: P.ERS Exam Date: 07/17/2019 Status: REG ER PH: FAX: PAGE 2 Signed Report BASIC METABOLIC [id number] 15:57:00* Test Item Value Reference Range Interpretation Comments SODIUM (test code = NA) 138 MMOL/L 136-143 N POTASSIUM (test code = K) 3.6 MMOL/L 3.5-5.1 N CHLORIDE (test code = CL) 101 MMOL/L 98-107 N CARBON DIOXIDE (test code = CO2) 24 mmol/L 24-31 N GLUCOSE (test code = GLU) 131 mg/dL 70-104 H BLOOD UREA NITROGEN (test code = BUN) 9.8 MG/DL 7.0-21.0 N GLOMERULAR FILTRATION RATE (test code = GFR) >=60 max estimate >60 The estimated glomerular filtration rate is computed usingpatient race, age (>18), sex, and serum creatinine. If anyof the needed data elements are missing the Laboratory cannot compute an estimation of the glomerular filtration rate. CREATININE (test code = CREAT) 0.8 mg/dL 0.8-1.5 N CALCIUM (test code = CA) 9.1 mg/dL 8.8-10.2 N LIVER FUNCTION [id number] 15:57:00* Test Item Value Reference Range Interpretation Comments TOTAL PROTEIN (test code = PROT) 8.1 g/dL 6.3-8.3 N ALBUMIN (test code = ALB) 5.0 G/DL 3.5-5.0 N BILIRUBIN TOTAL (test code = BILT) 0.5 mg/dL 0.2-1.0 N BILIRUBIN DIRECT (test code = BILD) <0.2 mg/dL 0.0-0.2 N SGOT/AST (test code = AST) 11 IU/L 10-34 N SGPT/ALT (test code = ALT) 6 U/L 10-36 L ALKALINE PHOSPHATASE (test code = ALKP) 69 U/L 32-104 N [id number] 15:57:00* Test Item Value Reference Range Interpretation Comments LIPASE (test code = LIP) 18 U/L 0-190 N CBC W/AUTO [id number] 15:44:00* Test Item Value Reference Range Interpretation Comments WHITE BLOOD CELL (test code = WBC) 13.4 x10 3/uL 4.8-10.8 H RED BLOOD CELL (test code = RBC) 4.54 x10 6/uL 4.20-5.40 N HEMOGLOBIN (test code = HGB) 14.3 g/dL 14.5-20 L HEMATOCRIT (test code = HCT) 43.0 % 37.0-47.0 N MEAN CELL VOLUME (test code = MCV) 94.7 fL 81.0-99.0 N MEAN CELL HGB (test code = MCH) 31.5 pg 27-31 H MEAN CELL HGB CONCENTRATION (test code = MCHC) 33.3 G/DL 33-36.5 N RED CELL DISTRIBUTION WIDTH (test code = RDW) 14.0 % 12.9-16. 9 N PLATELET COUNT (test code = PLT) 262 150-440 N MEAN PLATELET VOLUME (test code = MPV) 10.5 fL 8.9-12.4 N NEUTROPHIL % (test code = NT%) 68.7 % 42.2-75.2 N LYMPHOCYTE % (test code = LY%) 21.1 % 20.5-51.1 N MONOCYTE % (test code = MO%) 9.6 % 1.7-9.3 H EOSINOPHIL % (test code = EO%) 0.0 % 0.0-7.0 N BASOPHIL % (test code = BA%) 0.2 % 0-2.5 N NEUTROPHIL # (test code = NT#) 9.17 x10 3/uL 1.80-7.70 H LYMPHOCYTE # (test code = LY#) 2.82 x10 3/uL 1.00-4.80 N MONOCYTE # (test code = MO#) 1.28 x10 3/uL 0.00-0.80 H EOSINOPHIL # (test code = EO#) 0.00 x10 3/uL 0.00-0.45 N BASOPHIL # (test code = BA#) 0.03 x10 3/uL 0.0-0.20 N BASIC METABOLIC [id number] 13:45:00* Test Item Value Reference Range Interpretation Comments SODIUM (test code = NA) 143 MMOL/L 136-143 N POTASSIUM (test code = K) 3.8 MMOL/L 3.5-5.1 N CHLORIDE (test code = CL) 105 MMOL/L 98-107 N CARBON DIOXIDE (test code = CO2) 21 mmol/L 24-31 L GLUCOSE (test code = GLU) 222 mg/dL 70-104 H BLOOD UREA NITROGEN (test code = BUN) 11.1 MG/DL 7.0-21.0 N GLOMERULAR FILTRATION RATE (test code = GFR) >=60 max estimate >60 The estimated glomerular filtration rate is computed usingpatient race, age (>18), sex, and serum creatinine. If anyof the needed data elements are missing the Laboratory cannot compute an estimation of the glomerular filtration rate. CREATININE (test code = CREAT) 0.8 mg/dL 0.8-1.5 N CALCIUM (test code = CA) 9.1 mg/dL 8.8-10.2 N LIVER FUNCTION [id number] 13:45:00* Test Item Value Reference Range Interpretation Comments TOTAL PROTEIN (test code = PROT) 8.6 g/dL 6.3-8.3 H ALBUMIN (test code = ALB) 5.0 G/DL 3.5-5.0 N BILIRUBIN TOTAL (test code = BILT) 0.3 mg/dL 0.2-1.0 N BILIRUBIN DIRECT (test code = BILD) <0.2 mg/dL 0.0-0.2 N SGOT/AST (test code = AST) 14 IU/L 10-34 N SGPT/ALT (test code = ALT) 7 U/L 10-36 L ALKALINE PHOSPHATASE (test code = ALKP) 71 U/L 32-104 N [id number] 13:45:00* Test Item Value Reference Range Interpretation Comments LIPASE (test code = LIP) 23 U/L 0-190 N CBC W/AUTO [id number] 13:20:00* Test Item Value Reference Range Interpretation Comments WHITE BLOOD CELL (test code = WBC) 16.2 x10 3/uL 4.8-10.8 H RED BLOOD CELL (test code = RBC) 4.65 x10 6/uL 4.20-5.40 N HEMOGLOBIN (test code = HGB) 14.7 g/dL 14.5-20 N HEMATOCRIT (test code = HCT) 44.6 % 37.0-47.0 N MEAN CELL VOLUME (test code = MCV) 95.9 fL 81.0-99.0 N MEAN CELL HGB (test code = MCH) 31.6 pg 27-31 H MEAN CELL HGB CONCENTRATION (test code = MCHC) 33.0 G/DL 33-36.5 N RED CELL DISTRIBUTION WIDTH (test code = RDW) 13.8 % 12.9-16. 9 N PLATELET COUNT (test code = PLT) 324 150-440 N MEAN PLATELET VOLUME (test code = MPV) 10.7 fL 8.9-12.4 N NEUTROPHIL % (test code = NT%) 66.7 % 42.2-75.2 N LYMPHOCYTE % (test code = LY%) 23.2 % 20.5-51.1 N MONOCYTE % (test code = MO%) 8.9 % 1.7-9.3 N EOSINOPHIL % (test code = EO%) 0.4 % 0.0-7.0 N BASOPHIL % (test code = BA%) 0.4 % 0-2.5 N NEUTROPHIL # (test code = NT#) 10.81 x10 3/uL 1.80-7.70 H LYMPHOCYTE # (test code = LY#) 3.77 x10 3/uL 1.00-4.80 N MONOCYTE # (test code = MO#) 1.44 x10 3/uL 0.00-0.80 H EOSINOPHIL # (test code = EO#) 0.07 x10 3/uL 0.00-0.45 N BASOPHIL # (test code = BA#) 0.07 x10 3/uL 0.0-0.20 N [id number] 06:43:00* Test Item Value Reference Range Interpretation Comments FERRITIN (test code = UMESH) 82 ng/mL 13-150 N LIVER FUNCTION [id number] 06:41:00* Test Item Value Reference Range Interpretation Comments TOTAL PROTEIN (test code = PROT) 6.3 g/dL 6.3-8.3 N ALBUMIN (test code = ALB) 3.9 G/DL 3.5-5.0 N BILIRUBIN TOTAL (test code = BILT) 0.6 mg/dL 0.2-1.0 N BILIRUBIN DIRECT (test code = BILD) <0.2 mg/dL 0.0-0.2 N SGOT/AST (test code = AST) 13 IU/L 10-34 N SGPT/ALT (test code = ALT) 7 U/L 10-36 L ALKALINE PHOSPHATASE (test code = ALKP) 56 U/L 32-104 N [id number] 06:34:00* Test Item Value Reference Range Interpretation Comments PREALBUMIN (test code = PREALB) 14.2 MG/ML 15-42 L FE W/TOTAL IRON BINDING [id number] 06:34:00* Test Item Value Reference Range Interpretation Comments IRON (test code = IRON) 45 mcg/dL 53-167 L TOTAL IRON BINDING CAPACITY (test code = TIBC) 232 mcg/dL 250-450 L IRON SATURATION (test code = FESAT) 19 % 15-50 N BASIC METABOLIC [id number] 06:26:00* Test Item Value Reference Range Interpretation Comments SODIUM (test code = NA) 140 MMOL/L 136-143 N POTASSIUM (test code = K) 4.1 MMOL/L 3.5-5.1 N CHLORIDE (test code = CL) 103 MMOL/L 98-107 N CARBON DIOXIDE (test code = CO2) 17 mmol/L 24-31 L GLUCOSE (test code = GLU) 70 mg/dL 70-104 N BLOOD UREA NITROGEN (test code = BUN) 1.8 MG/DL 7.0-21.0 L GLOMERULAR FILTRATION RATE (test code = GFR) >=60 max estimate >60 The estimated glomerular filtration rate is computed usingpatient race, age (>18), sex, and serum creatinine. If anyof the needed data elements are missing the Laboratory cannot compute an estimation of the glomerular filtration rate. CREATININE (test code = CREAT) 0.6 mg/dL 0.8-1.5 L CALCIUM (test code = CA) 8.7 mg/dL 8.8-10.2 L [id number] 06:26:00* Test Item Value Reference Range Interpretation Comments MAGNESIUM (test code = MAG) 1.8 mg/dL 1.4-2.6 N CBC W/AUTO [id number] 05:58:00* Test Item Value Reference Range Interpretation Comments WHITE BLOOD CELL (test code = WBC) 6.3 x10 3/uL 4.8-10.8 N RED BLOOD CELL (test code = RBC) 4.30 x10 6/uL 4.20-5.40 N HEMOGLOBIN (test code = HGB) 12.9 g/dL 14.5-20 L HEMATOCRIT (test code = HCT) 39.7 % 37.0-47.0 N MEAN CELL VOLUME (test code = MCV) 92.3 fL 81.0-99.0 N MEAN CELL HGB (test code = MCH) 30.0 pg 27-31 N MEAN CELL HGB CONCENTRATION (test code = MCHC) 32.5 G/DL 33-36.5 L RED CELL DISTRIBUTION WIDTH (test code = RDW) 13.1 % 12.9-16. 9 N PLATELET COUNT (test code = PLT) 212 150-440 N MEAN PLATELET VOLUME (test code = MPV) 10.2 fL 8.9-12.4 N NEUTROPHIL % (test code = NT%) 45.8 % 42.2-75.2 N LYMPHOCYTE % (test code = LY%) 40.3 % 20.5-51.1 N MONOCYTE % (test code = MO%) 11.2 % 1.7-9.3 H EOSINOPHIL % (test code = EO%) 1.8 % 0.0-7.0 N BASOPHIL % (test code = BA%) 0.6 % 0-2.5 N NEUTROPHIL # (test code = NT#) 2.86 x10 3/uL 1.80-7.70 N LYMPHOCYTE # (test code = LY#) 2.52 x10 3/uL 1.00-4.80 N MONOCYTE # (test code = MO#) 0.70 x10 3/uL 0.00-0.80 N EOSINOPHIL # (test code = EO#) 0.11 x10 3/uL 0.00-0.45 N BASOPHIL # (test code = BA#) 0.04 x10 3/uL 0.0-0.20 N SURGICAL [id number] 19:22:00 RUN DATE: 03/29/19 [facility] - LAB PAGE 1 RUN TIME: 1921 Specimen Inqui ry RUN USER: INTERFACE PATIENT: ORALIA RIOS ACCT #: B [id number] LOC: [place] POD B U #: [id number] AGE/SX: 33/F ROOM: [facility] [id number]/24/19REG DR: Jostin Murguia MD : [id number] BED: 1 DIS: STATUS: ADM IN TLOC: SPEC #: [id number] RECD: 03/27/19 STATUS: ANA REQ #: [id number] ROYAL: 03/27/[address]: Jostin Murguia MD ENTERED: 03/27/19 SP TYPE: SURG OTHR DR: DOES_N OT KNOW No Primary or Family Physician Self Referred Alan Ware MD,Ray Campbell MDORDERED: PATHGM4/2, PATH SPEC, H E STAIN/2 HISTOLOGY: TISSUE ID BLK P CS LETA LEV / PROCEDURE DISPOSITION ____ ___ ___ ___ ___ ILIUM A 1 3 1 COLON BIOPSY B 1 3 1 TISSUES: A. ILIUM - Terminal Ileum Bx B. COLON BIOPSY - Ran dom Colon Bx's CLINICAL HISTORY Abdominal Pain, Colitis FINAL DIAGNOSIS A- TERMINAL ILEUM, BIOPSY: - Small bowel mucosa with no signific ant histopathologic abnormalities. - No histologic evidence of ileitis, dyspl clair or malignancy identified. B- COLON, RANDOM BIOPSIES: - Colonic muc ruy with no significant histopathologic abnormalities. - No histologic eviden ce of colitis, dysplasia or malignancy identified. GROSS DESCRIPTION The specimen is received in two parts in formalin-filled containers labeled wit h at least two patient identifiers and specimen source. A-TERMINAL ILEUM BIOPSY: The specimen consists of two irregular pieces of jolly-pink soft tissu e, 0.4 cm each. The specimen is submitted in toto in cassette "A". B-RANDO M COLON BIOPSY: The specimen consists of multiple irregular pieces of jolly-pin k soft tissue, 0.2 to 0.4 cm. The specimen is submitted in toto in cassette "B ". ACCOUNTS RECEIVABLE COLLECTOR/eb CONTINUED ON NEXT PAGE -------- ----RUN DATE: 03/29/19 [facility] - LAB PAGE 2 RUN TIME: 1921 Specimen Inquiry RUN USER: INTERFACE SPEC #: [id number] PATIENT: ORALIA RIOS #[id number] (Continued) MICROSCOPIC DESCRIPTION Performed. Signed SIGNATURE ON FILE Ashwini Blancas 03/29/191921 END OF REPORT - XR UGI SGL CONTRAST 2019-03-29 13:11:00Patient Name: ORALIA RIOS Unit No: [id number] EXAMS: CPT CODE: [id number] XR UGI SGL CONTRAST 95421 Examination: Upper GI Location code: S17 Comparison: None Discussion: Clinical history is remarkable for abdominal pain, nausea. Patient was administered both thick and thin barium along with effervescent crystals. 19 images are taken, 96 seconds fluoroscopic time utilized. I was present during this procedure for total of 10 minutes. Esophagus no straight appropriate distensibility, primary peristaltic stripping wave is diminished with delayed contrast passage into the stomach. There is reflux identified to the upper 3rd esophagus during this examination. Stomach is morphologically normal, no evidence of ulceration. Duodenal sweep is unremarkable. Impression: 1. Primary peristaltic stripping wave is somewhat diminished, reflux noted to the upper 3rd esophagus without definable hernia. No evidence of ulcer. at 1311 Reported and signed by: DONNA RUSH M.D. CC: Misael Hubbard MD; Jostin Murguia MD Technologist: Len Cox Fluoro Time: DAP (Gy m2): Air Kerma (mGy): Trscr Dt/Tm: 03/29/2019 (1311) by:[email or web address] Printed Date/Time: 03/29/2019 (4865) Name: ORALIA RIOS [facility] Phys: Misael Alva MD [address] : 1985 Age: 33 Sex: [place] [address] Loc: P.0720 1 Exam Date: 03/29/2019 Status : ADM IN PH: FAX: PAGE 1 Sign ed Report SURGICAL [id number] 13:16:00 RUN DATE: 03/28/19 [facility] - LAB PAGE 1 RUN TIME: 1316 Specimen Inqui ry RUN USER: INTERFACE PATIENT: GABRIELORALIA ACCT #: [id number] LOC: P.7S POD B U #: [id number] AGE/SX: 33/F ROOM: [facility] RE03/24/19REG DR: Jostin Murguia MD : 83 BED: 1 DIS: STATUS: ADM IN TLOC: SPEC #: [id number] RECD: 03/26/19 STATUS: ANA QUIÑONES #: [id number] ROYAL: 03/26/19-[address]: Jostin Murguia MD ENTERED: 03/26/19 SP TYPE: SURG OTHR DR: DOES_N OT KNOW No Primary or Family Physician Self Referred Alan Ware MD, Naveed MDORDERED: PATHGM4, PATH SPEC, H E STAIN HISTOLOGY: TISSUE ID BLK PCS LETA LEV / PROCEDURE DISPOSITION ____ ___ ___ __ _ ___ ANTRUM BIOPSY A 1 3 1 TISSUES: A. 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 - Helicobacter pylori: Absent. Immunohistochemical stain is negative. - Int estinal metaplasia: Absent. - Dysplasia: Absent. GROSS DESCRIPTION G ASTRIC ANTRUM BIOPSY: Received in formalin in a container labeled with the zana castillo's name and "gastric antrum biopsy". It consists of two jolly soft tissue f ragments, each measuring 0.2 x 0.2 x 0.1 cm. It is submitted entirely in one c assette. MCB/eb MICROSCOPIC DESCRIPTION Microscopic performed. -- Signed SIGNATURE ON FILE Alona Zhu MD 03/28/19 1 316 END OF REPORT - NM GASTRIC [id number] 11:36:00Patient Name: ORALIA RIOS Unit No: [id number] EXAMS: CPT CODE: [id number] NM GASTRIC EMPTYING 32137 Dictation location B2: NUCLEAR MEDICINE GASTRIC EMPTYING STUDY: HISTORY: Early satiety, nausea and vomiting. COMPARISON: Ultrasound and CT 03/24/2019 1.1 mCi of Tc- tagged sulfur colloid was mixed in 1/2 cup oatmeal and ingested by the patient. The gastric emptying examination was evaluated with a time/activity curve and the data demonstrates a prompt emptying of the stomach with a T-1/2 of 101 minutes, normal being less than 120 minutes. IMPRESSION: Normal gastric emptying scan. at 1136 Reported and signed by: Chayo Villagomez M.D. CC: Alan Ware MD; Jostin Murguia MD Technologist: Garret Love Trscr Dt/Tm: 03/28/2019 (1138) by:[facility] Printed Date/Time: 03/28/2019 (3850) Name: ORALIA RIOS [facility] Phys: Alan Beltrán MD [address] : 1985 Age: 33 Sex: [place] [address] Loc: P.0720 1 Exam Date: 03/28/2019 Status: ADM IN PH: FAX: PAGE 1 Signed Report - XR SMALL BOWEL 2019-03-28 08:38:00Patient Name: ORALIA RIOS Unit No: [id number] EXAMS: CPT CODE: [id number] XR SMALL BOWEL 86600 Examination: All bowel follow-through Location code: S17 Comparison: None Discussion: Clinical history is remarkable for pain, intractable nausea and vomiting. Supervisor Composing Room KUB demonstrates no ileus, obstruction, or impaction. Right upper quadrant cholecystectomy clips are present. Patient was administered oral contrast, tolerated without complication. Mucosal pattern of the jejunum and ileum is within normal limits. Distal ileum is visualized to a half hours, the colon is visualized at 4 hours, the appendix is filled. Impression: Slightly delayed bowel transit however there is no evidence of obstruction. There is no evidence of bowel distention. at 0838 Reported and signed by: DONNA RUSH M.D. CC: Alan Ware MD; Jostin Murguia MD Technologist: Gaston Thompson Fluoro Time: DAP (Gy m2): Air Kerma (mGy): Trscr Dt/Tm: 03/28/2019 (0838) by:[email or web address] Printed Date/Time: 03/29/2019 (1037) Name: ORALIA RIOS [facility] Phys: Alan Beltrán MD [address] : 1985 Age: 33 Sex: [place] [address] Loc: P.0720 1 Exam Date: 03/27/2019 Status: ADM IN PH: FAX: PAGE 1 Signed Report CBC W/AUTO [id number] 03:53:00* Test Item Value Reference Range Interpretation Comments WHITE BLOOD CELL (test code = WBC) 5.5 x10 3/uL 4.8-10.8 N RED BLOOD CELL (test code = RBC) 3.61 x10 6/uL 4.20-5.40 L HEMOGLOBIN (test code = HGB) 11.0 g/dL 14.5-20 L HEMATOCRIT (test code = HCT) 33.3 % 37.0-47.0 L MEAN CELL VOLUME (test code = MCV) 92.2 fL 81.0-99.0 N MEAN CELL HGB (test code = MCH) 30.5 pg 27-31 N MEAN CELL HGB CONCENTRATION (test code = MCHC) 33.0 G/DL 33-36.5 N RED CELL DISTRIBUTION WIDTH (test code = RDW) 13.3 % 12.9-16. 9 N PLATELET COUNT (test code = PLT) 180 150-440 N MEAN PLATELET VOLUME (test code = MPV) 10.5 fL 8.9-12.4 N NEUTROPHIL % (test code = NT%) 41.1 % 42.2-75.2 L LYMPHOCYTE % (test code = LY%) 49.5 % 20.5-51.1 N MONOCYTE % (test code = MO%) 7.5 % 1.7-9.3 N EOSINOPHIL % (test code = EO%) 1.3 % 0.0-7.0 N BASOPHIL % (test code = BA%) 0.4 % 0-2.5 N NEUTROPHIL # (test code = NT#) 2.26 x10 3/uL 1.80-7.70 N LYMPHOCYTE # (test code = LY#) 2.71 x10 3/uL 1.00-4.80 N MONOCYTE # (test code = MO#) 0.41 x10 3/uL 0.00-0.80 N EOSINOPHIL # (test code = EO#) 0.07 x10 3/uL 0.00-0.45 N BASOPHIL # (test code = BA#) 0.02 x10 3/uL 0.0-0.20 N LIVER FUNCTION [id number] 03:52:00* Test Item Value Reference Range Interpretation Comments TOTAL PROTEIN (test code = PROT) 5.4 g/dL 6.3-8.3 L ALBUMIN (test code = ALB) 3.4 G/DL 3.5-5.0 L BILIRUBIN TOTAL (test code = BILT) 0.4 mg/dL 0.2-1.0 N BILIRUBIN DIRECT (test code = BILD) 0.2 mg/dL 0.0-0.2 N SGOT/AST (test code = AST) 9 IU/L 10-34 L SGPT/ALT (test code = ALT) 7 U/L 10-36 L ALKALINE PHOSPHATASE (test code = ALKP) 47 U/L 32-104 N BASIC METABOLIC [id number] 03:52:00* Test Item Value Reference Range Interpretation Comments SODIUM (test code = NA) 137 MMOL/L 136-143 N POTASSIUM (test code = K) 3.4 MMOL/L 3.5-5.1 L CHLORIDE (test code = CL) 101 MMOL/L 98-107 N CARBON DIOXIDE (test code = CO2) 21 mmol/L 24-31 L GLUCOSE (test code = GLU) 77 mg/dL 70-104 N BLOOD UREA NITROGEN (test code = BUN) 2.7 MG/DL 7.0-21.0 L GLOMERULAR FILTRATION RATE (test code = GFR) >=60 max estimate >60 The estimated glomerular filtration rate is computed usingpatient race, age (>18), sex, and serum creatinine. If anyof the needed data elements are missing the Laboratory cannot compute an estimation of the glomerular filtration rate. CREATININE (test code = CREAT) 0.7 mg/dL 0.8-1.5 L CALCIUM (test code = CA) 8.0 mg/dL 8.8-10.2 L [id number] 03:52:00* Test Item Value Reference Range Interpretation Comments PREALBUMIN (test code = PREALB) 17.1 MG/ML 15-42 N - MRI [id number] 13:31:00Patient Name: ORALIA RIOS Unit No: [id number] EXAMS: CPT CODE: [id number] MRI MRCP 91613 Indication: ABDOMINAL PAIN TECHNIQUE: MRI of the upper abdomen is obtained without intravenous gadolinium using axial and coronal T1 and T2 haste imaging. In phase out of phase imaging as well as Thin and thick slab images of the right upper abdomen were also obtained using the MR cholangiography protocol. COMPARISON: CT study of 03/24/2019 and ultrasound study are reviewed for correlation. FINDINGS: The images of the spleen, pancreas, adrenals, and the kidneys appear normal. There is a 1.9 cm oval T2 hyperintense nodule in the anterior liver adjacent to falciform. The visualized loops of bowel in the upper abdomen are unremarkable. The visualized aortic, IVC and the portal vein flow voids are normal. There is no gross evidence of upper abdominal aortic aneurysm. No ascites seen. There is normal visualization of the intrahepatic biliary tree, the common hepatic ducts and the common bile duct. The common bile duct is estimated at 3.5 mm. The pancreatic duct appears normal. No filling defect signals are seen within the common bile duct. The gallbladder is absent. IMPRESSION: 1. Status post cholecystectomy. 2. No intrahepatic or extrahepatic biliary distention is seen. No intraductal filling defect identified. 3. There is a 1.9 cm oval T2 hyperintense nodule in the left lobe liver anteriorly adjacent to the falciform. It could represent an atypical hemangioma. Consider multiphase CT or MRI liver with contrast using gadolinium contrast and mass protocol. at 1331 Reported and signed by: Jesus Chase MD CC: Arabella Anderson MD; Jostin Murguia MD Technologist: Pankaj Jonas Trscr Dt/Tm: 03/25/2019 (0551) by:[email or web address] Printed Date /Time: 03/26/2019 (0302) Name: ORALIA RIOS [facility] Phys: Arabella Berry [address] : 1985 Age: 33 Sex: [place] [address] Loc: P.0720 1 Exam Date: 03/25/2019 Status: ADM IN PH: FA X: PAGE 1 Signed Report URINALYSIS [id number] 22:45:00* Test Item Value Reference Range Interpretation Comments UA COLOR (test code = COLU) YELLOW DISCRIPT YELLOW UA APPEARANCE (test code = APPU) CLEAR DISCRIPT CLEAR UA GLUCOSE DIPSTICK (test code = DGLUU) NEGATIVE mg/dL NEGATIVE UA BILIRUBIN DIPSTICK (test code = BILU) NEGATIVE NEGATIVE UA KETONE DIPSTICK (test code = KETU) 15 mg/dL NEGATIVE A UA SPECIFIC GRAVITY (test code = SGU) 1.010 1.005-1.030 UA BLOOD DIPSTICK (test code = MATILDE) NEGATIVE NEGATIVE UA PH DIPSTICK (test code = BERYL) 8.0 5.0-9.0 UA PROTEIN DIPSTICK (test code = PROU) NEGATIVE mg/dL NEGATIVE UA UROBILINOGEN DIPSTICK (test code = URO) 0.2 mg/dL 0.2-1.0 UA NITRITE DIPSTICK (test code = HANSEL) NEGATIVE NEGATIVE UA LEUKOCYTE ESTERASE DIPSTICK (test code = LEUU) NEGATIVE NEGA TIVE UR HCG [id number] 22:45:00* Test Item Value Reference Range Interpretation Comments UR HCG QUAL (test code = HCGQLU) NEGATIVE NEGATIVE URINALYSIS [id number] 22:44:00* Test Item Value Reference Range Interpretation Comments UA COLOR (test code = COLU) YELLOW DISCRIPT YELLOW UA APPEARANCE (test code = APPU) CLEAR DISCRIPT CLEAR UA GLUCOSE DIPSTICK (test code = DGLUU) NEGATIVE mg/dL NEGATIVE UA BILIRUBIN DIPSTICK (test code = BILU) NEGATIVE NEGATIVE UA KETONE DIPSTICK (test code = KETU) 15 mg/dL NEGATIVE A UA SPECIFIC GRAVITY (test code = SGU) 1.010 1.005-1.030 UA BLOOD DIPSTICK (test code = MATILDE) NEGATIVE NEGATIVE UA PH DIPSTICK (test code = BERYL) 8.0 5.0-9.0 UA PROTEIN DIPSTICK (test code = PROU) NEGATIVE mg/dL NEGATIVE UA UROBILINOGEN DIPSTICK (test code = URO) 0.2 mg/dL 0.2-1.0 UA NITRITE DIPSTICK (test code = HANSEL) NEGATIVE NEGATIVE UA LEUKOCYTE ESTERASE DIPSTICK (test code = LEUU) NEGATIVE NEGA TIVE UR HCG [id number] 22:44:00* Test Item Value Reference Range Interpretation Comments UR HCG QUAL (test code = HCGQLU) NEGATIVE - US ABDOMEN [id number] 22:34:00Patient Name: ORALIA RIOS Unit No: [id number] EXAMS: CPT CODE: [id number] US ABDOMEN [facility] [address] LOCATION: 3 EXAM: ABDOMINAL ULTRASOUND-LIMITED HISTORY: abdominal pain TECHNIQUE: Sonographic imaging of the right upper quadrant in the transverse and sagittal plane employing calderon scale and color imaging. COMPARISON: CT abdomen and pelvis performed earlier the same day FINDINGS: The liver is normal in size and contour. Hepatic parenchymal echogenicity is overall within normal limits. A 1.3 x 1.0 x 1.5 cm hypoechoic focus is present in the left hepatic lobe, corresponding to a focal low density on CT. In this location, focal fatty infiltration is common, however this sonographic appearance is not consistent with focal fatty infiltration. The main portal vein demonstrates hepatopedal flow. The gallbladder is surgically absent. There is no biliary ductal dilatation. The common bile duct measures 3 mm, within normal limits. The pancreas is unremarkable where visualized. Portions of the head and tail are obscured by bowel gas. The right kidney is normal in size measuring 10.5 cm in length. Renal parenchymal echogenicity is within normal limits. No contour deforming masses on the submitted still images. There is no evidence of nephrolithiasis or hydronephrosis. The abdominal aorta is normal in size where visualized. The IVC is visualized as it enters the liver. IMPRESSION: 1. Prior cholecystectomy. No biliary duct dilatation. 2. Indeter minate small hypoechoic lesion is noted in the left hepatic lobe corresp onding to a focal low density seen on CT. Nonemergent further assessmen t with hepatic mass protocol MRI is recommended. Electronically Sign ed by ANETTE CABRERA M.D. on 03/24/2019 at 2234 Reported and signed by: ANETTE CABRERA M.D. CC: Arabella Anderson MD Technologist: ESTEFANI CALDERON RDMS,RVT,(AB),(OB) Probe: Trscr Dt/Tm: 03/24/2019 (2234) by:[email or web address] Printed Date/Time: 03/24/2019 (2237) Name: ORALIA RIOS [facility] Phys: Arabella Anderson [address] : 1985 Age: 33 Sex: [place] [address] Loc: P.ERMS 5 Exam Date: 03/24/2019 S tatus: ADM IN PH: FAX: PAGE 1 Signed Report - CT ABD PELVIS [id number] 22:07:00Patient Name: ORALIA RIOS Unit No: [id number] EXAMS: CPT CODE: [id number] CT ABD PELVIS W/CONT 65954 Exam: CT abdomen and pelvis with contrast. Location: H 12 History: abdominal pain Technique: Enhanced spiral slices were taken from the domes of the diaphragm, through the pubic symphysis. Coronal reformations were performed. One or more of the following dose reduction techniques were used: Automated exposure control, adjustment of the mA and/or kV according to patient size, and/or utilization of iterative reconstruction technique. Findings: The liver is of normal, homogeneous density. No mass is seen. The intra-and extrahepatic biliary tree is normal. The hepatic and portal veins are patent. The gallbladder has been removed. The pancreas is normal. The pancreatic duct is normal in caliber. The spleen and adrenal glands are normal in size and shape. The kidneys are unremarkable. No nephrolithiasis, perinephric fluid collections or hydronephrosis is seen. The colon wall is prominent from cecum to rectum. In the mesentery is unremarkable. The appendix is normal. No inflammatory change is identified. No lymphadenopathy or free fluid is found in the abdomen or the pelvis. The pelvic structures are unremarkable. The lung bases are clear. No incidental findings are noted. Impression: 1. Prominent colon wall from cecum to rectum without associated mesenteric inflammation in keeping with colitis. 2. Status post cholecystectomy. at 2207 Repor escobar and signed by: MARI KOHLER M.D. [facility]: JACOBONatalia Garces Arabella Anderson [address] : 1985 Age: 33 Sex: F [place] [address] Loc: P.ERS Exam Date: 03/24/2019 Status: REG ER PH: FAX: PAGE 1 Signed Report (CONTINUED) Patient Name: ORALIA RIOS Unit No: [id number] EXAMS: CPT CODE: [id number] CT ABD PELVIS W/CONT 54583 < Continued> CC: Arabella Anderson MD Technologist: Rupali Bailon CTDI: 18.21 DLP: 916 Trscr Dt/Tm: 03/24/2019 (2206) by:Kevin Printed Date/Time: 03/24/2019 (2209) Name: GABRIELORALIA [facility] Phys: LASHON Garces Arabella Anderson [address] : 1985 Age: 33 Sex: F [place] [address] Loc: P.ERS Exam Date: 03/24/2019 Status: REG ER PH: FAX: PAGE 2 Signed Report COMPREHENSIVE METABOLIC [id number] 21:18:00* Test Item Value Reference Range Interpretation Comments SODIUM (test code = NA) 139 MMOL/L 136-143 N POTASSIUM (test code = K) 3.4 MMOL/L 3.5-5.1 L CHLORIDE (test code = CL) 98 MMOL/L 98-107 N CARBON DIOXIDE (test code = CO2) 22 mmol/L 24-31 L GLUCOSE (test code = GLU) 113 mg/dL 70-104 H BLOOD UREA NITROGEN (test code = BUN) 6.7 MG/DL 7.0-21.0 L GLOMERULAR FILTRATION RATE (test code = GFR) >=60 max estimate >60 The estimated glomerular filtration rate is computed usingpatient race, age (>18), sex, and serum creatinine. If anyof the needed data elements are missing the Laboratory cannot compute an estimation of the glomerular filtration rate. CREATININE (test code = CREAT) 0.8 mg/dL 0.8-1.5 N TOTAL PROTEIN (test code = PROT) 7.6 g/dL 6.3-8.3 N ALBUMIN (test code = ALB) 4.6 G/DL 3.5-5.0 N CALCIUM (test code = CA) 9.4 mg/dL 8.8-10.2 N BILIRUBIN TOTAL (test code = BILT) 0.4 mg/dL 0.2-1.0 N SGOT/AST (test code = AST) 14 IU/L 10-34 N SGPT/ALT (test code = ALT) 10 U/L 10-36 N ALKALINE PHOSPHATASE (test code = ALKP) 62 U/L 32-104 N [id number] 21:18:00* Test Item Value Reference Range Interpretation Comments LIPASE (test code = LIP) 20 U/L 0-190 N CBC W/AUTO [id number] 21:05:00* Test Item Value Reference Range Interpretation Comments WHITE BLOOD CELL (test code = WBC) 11.1 x10 3/uL 4.8-10.8 H RED BLOOD CELL (test code = RBC) 4.66 x10 6/uL 4.20-5.40 N HEMOGLOBIN (test code = HGB) 14.0 g/dL 14.5-20 L HEMATOCRIT (test code = HCT) 42.5 % 37.0-47.0 N MEAN CELL VOLUME (test code = MCV) 91.2 fL 81.0-99.0 N MEAN CELL HGB (test code = MCH) 30.0 pg 27-31 N MEAN CELL HGB CONCENTRATION (test code = MCHC) 32.9 G/DL 33-36.5 L RED CELL DISTRIBUTION WIDTH (test code = RDW) 13.5 % 12.9-16. 9 N PLATELET COUNT (test code = PLT) 319 150-440 N MEAN PLATELET VOLUME (test code = MPV) 10.6 fL 8.9-12.4 N NEUTROPHIL % (test code = NT%) 55.6 % 42.2-75.2 N LYMPHOCYTE % (test code = LY%) 34.7 % 20.5-51.1 N MONOCYTE % (test code = MO%) 8.4 % 1.7-9.3 N EOSINOPHIL % (test code = EO%) 0.3 % 0.0-7.0 N BASOPHIL % (test code = BA%) 0.5 % 0-2.5 N NEUTROPHIL # (test code = NT#) 6.19 x10 3/uL 1.80-7.70 N LYMPHOCYTE # (test code = LY#) 3.85 x10 3/uL 1.00-4.80 N MONOCYTE # (test code = MO#) 0.93 x10 3/uL 0.00-0.80 H EOSINOPHIL # (test code = EO#) 0.03 x10 3/uL 0.00-0.45 N BASOPHIL # (test code = BA#) 0.05 x10 3/uL 0.0-0.20 N COMPREHENSIVE METABOLIC [id number] 02:27:00* Test Item Value Reference Range Interpretation Comments SODIUM (test code = NA) 142 MMOL/L 133-145 N POTASSIUM (test code = K) 3.6 MMOL/L 3.6-5.2 N CHLORIDE (test code = CL) 104 MMOL/L 100-108 N CARBON DIOXIDE (test code = CO2) 23 MMOL/L 22-32 N GLUCOSE (test code = GLU) 133 MG/DL 65-99 H Re sults of this assay method may be falsely depressed orelevated if patient is taking sulfasalazine. BLOOD UREA NITROGEN (test code = BUN) 10 MG/DL 6-20 N GLOMERULAR FILTRATION RATE (test code = GFR) 64 64-149 N Reporting units: mL/min/1.73m\\S\\2 (Modified MDRD Formula) CREATININE (test code = CREAT) 0.99 MG/DL 0.60-1.00 N TOTAL PROTEIN (test code = PROT) 8.1 G/DL 6.4-8.2 N ALBUMIN (test code = ALB) 4.5 G/DL 3.4-5.0 N GLOBULIN (test code = GLOB) 3.6 G/DL 1.5-3.8 N ALBUMIN/GLOBULIN RATIO (test code = A/G) 1.3 1.1-2.2 N CALCIUM (test code = CA) 9.0 MG/DL 8.7-10.5 N BILIRUBIN TOTAL (test code = BILT) 0.6 MG/DL 0.0-1.0 N BILIRUBIN INDIRECT (test code = BILIND) 0.5 MG/DL 0.0-0.7 N SGOT/AST (test code = AST) 14 Units/L 15-37 L R esults of this assay method may be falsely depressed orelevated if patient is taking sulfasalazine. SGPT/ALT (test code = ALT) 11 Units/L 30-65 L R esults of this assay method may be falsely depressed orelevated if patient is taking sulfasalazine. ALKALINE PHOSPHATASE TOTAL (test code = ALKP) 66 Units/L 50-136 N BILIRUBIN [id number] 02:27:00* Test Item Value Reference Range Interpretation Comments BILIRUBIN DIRECT (test code = BILD) 0.1 MG/DL 0.0-0.3 N [id number] 02:27:00* Test Item Value Reference Range Interpretation Comments LIPASE (test code = LIP) 62 Units/L 73-393 L DRUG OF ABUSE SCREEN [id number] 02:27:00* Test Item Value Reference Range Interpretation Comments UR COCAINE (test code = COCAU) NEGATIVE NEGATIVE UR MDMA (test code = MDMAQLU) NEGATIVE NEGATIVE UR CANNABINOIDS (test code = CANU) POSITIVE NEGATIVE A If confirmatory testing required, contact laboratory. UR AMPHETAMINE (test code = AMPHU) NEGATIVE NEGATIVE UR BARBITURATE QUAL (test code = BARBQLU) NEGATIVE NEGATIVE UR BENZODIAZEPINE (test code = BENZU) NEGATIVE NEGATIVE UR OPIATES QUAL (test code = OPIAQLU) POSITIVE NEGATIVE A If confirmatory testing required, contact laboratory. UR PHENCYCLIDINE (PCP) (test code = PHENCU) NEGATIVE NEGATIVE Urine Drug Abuse Screen provides preliminary results thatmay be confirmed by alternate methods (i.e., GC/MS) at [facility]. Results of screen may not be usedin criminal justice, job performance or professionalcredential review, or custody issues. Negative Callahan Level ng/ml ----- Cocaine 300 Methamphetamine (Ecstacy) 500 Cannabinoids (THC) 50 Amphetamine 1000 Barbiturates 200 Benzodiazepines 200 Opiates 300 Phencyclidine (PCP) 25 HCG SERUM [id number] 02:17:00* Test Item Value Reference Range Interpretation Comments HCG SERUM QUAL (test code = HCGQL) NEGATIVE NEGATIVE False negatives may occur when levels of hCGare below 10 mIU/ml. When is still suspected, a new specimenshould be obtained after 48 hours and re-tested.If waiting 48 hours is not medically advisable,the test result should be confirmed using aquantitative hCG assay. UA RFLX [id number] 02:15:00* Test Item Value Reference Range Interpretation Comments UA COLOR (test code = COLU) Light-Yellow YELLOW UA APPEARANCE (test code = APPU) Turbid CLEAR A UA GLUCOSE DIPSTICK (test code = DGLUU) NORMAL mg/dL NEGATIVE UA BILIRUBIN DIPSTICK (test code = BILU) NEGATIVE NEGATIVE UA KETONE DIPSTICK (test code = KETU) 150 mg/dL NEGATIVE A UA SPECIFIC GRAVITY (test code = SGU) 1.017 1.001-1.035 N UA BLOOD DIPSTICK (test code = MATILDE) TRACE NEGATIVE UA PH DIPSTICK (test code = BERYL) 6.5 5.5-7.0 N UA PROTEIN DIPSTICK (test code = PROU) 20 mg/dL NEGATIVE UA UROBILINOGEN DIPSTICK (test code = URO) NORMAL mg/dL NORMAL UA NITRITE DIPSTICK (test code = HANSEL) NEGATIVE NEGATIVE UA LEUKOCYTE ESTERASE DIPSTICK (test code = LEUU) 250 NEGA TIVE A UA COMMENT (test code = COMU) VOLUME 10-12 ML URINE SPECIMEN DESCRIPTION (test code = UASPEC) Clean Catch UA [id number] 02:15:00* Test Item Value Reference Range Interpretation Comments UA WBC (test code = WBCU) < 10 #/HPF 0-10 A UA RBC (test code = RBCU) 11-15 #/HPF NONE SEEN A UA BACTERIA (test code = BACU) 1+ HPF NONE SEEN UA SQUAMOUS CELLS (test code = SQU) 61 - 80 #/LPF <100 A UA MUCUS (test code = MUCU) 4+ #/lpf NONE SEEN UA CULTURE NEEDED? (test code = UACULT) Criteria not met UA RFLX [id number] 02:00:00* Test Item Value Reference Range Interpretation Comments UA COLOR (test code = COLU) Light-Yellow YELLOW UA APPEARANCE (test code = APPU) Turbid CLEAR A UA GLUCOSE DIPSTICK (test code = DGLUU) NORMAL mg/dL NEGATIVE UA BILIRUBIN DIPSTICK (test code = BILU) NEGATIVE NEGATIVE UA KETONE DIPSTICK (test code = KETU) 150 mg/dL NEGATIVE A UA SPECIFIC GRAVITY (test code = SGU) 1.017 1.001-1.035 N UA BLOOD DIPSTICK (test code = MATILDE) TRACE NEGATIVE UA PH DIPSTICK (test code = BERYL) 6.5 5.5-7.0 N UA PROTEIN DIPSTICK (test code = PROU) 20 mg/dL NEGATIVE UA UROBILINOGEN DIPSTICK (test code = URO) NORMAL mg/dL NORMAL UA NITRITE DIPSTICK (test code = HANSEL) NEGATIVE NEGATIVE UA LEUKOCYTE ESTERASE DIPSTICK (test code = LEUU) 250 NEGA TIVE A UA COMMENT (test code = COMU) VOLUME 10-12 ML URINE SPECIMEN DESCRIPTION (test code = UASPEC) Clean Catch UA [id number] 02:00:00* Test Item Value Reference Range Interpretation Comments UA WBC (test code = WBCU) #/hpf <10 UA RBC (test code = RBCU) #/HPF NONE SEEN UA SQUAMOUS CELLS (test code = SQU) #/lpf <100 UA CULTURE NEEDED? (test code = UACULT) UA RFLX [id number] 02:00:00* Test Item Value Reference Range Interpretation Comments UA COLOR (test code = COLU) Light-Yellow YELLOW UA APPEARANCE (test code = APPU) Turbid CLEAR A UA GLUCOSE DIPSTICK (test code = DGLUU) NORMAL mg/dL NEGATIVE UA BILIRUBIN DIPSTICK (test code = BILU) NEGATIVE NEGATIVE UA KETONE DIPSTICK (test code = KETU) 150 mg/dL NEGATIVE A UA SPECIFIC GRAVITY (test code = SGU) 1.017 1.001-1.035 N UA BLOOD DIPSTICK (test code = MATILDE) TRACE NEGATIVE UA PH DIPSTICK (test code = BERYL) 6.5 5.5-7.0 N UA PROTEIN DIPSTICK (test code = PROU) 20 mg/dL NEGATIVE UA UROBILINOGEN DIPSTICK (test code = URO) NORMAL mg/dL NORMAL UA NITRITE DIPSTICK (test code = HANSEL) NEGATIVE NEGATIVE UA LEUKOCYTE ESTERASE DIPSTICK (test code = LEUU) 250 NEGA TIVE A UA COMMENT (test code = COMU) VOLUME 10-12 ML URINE SPECIMEN DESCRIPTION (test code = UASPEC) Clean Catch UA [id number] 02:00:00* Test Item Value Reference Range Interpretation Comments UA WBC (test code = WBCU) #/hpf <10 UA RBC (test code = RBCU) #/HPF NONE SEEN UA SQUAMOUS CELLS (test code = SQU) #/lpf <100 UA CULTURE NEEDED? (test code = UACULT) CBC W/AUTO [id number] 01:59:00* Test Item Value Reference Range Interpretation Comments WHITE BLOOD CELL (test code = WBC) 11.19 x10 3/uL 4.80-10.80 H RED BLOOD CELL (test code = RBC) 4.40 x10 6/uL 4.2-5.4 N HEMOGLOBIN (test code = HGB) 13.1 G/DL 12.0-16.0 N HEMATOCRIT (test code = HCT) 38.9 % 37-47 N MEAN CELL VOLUME (test code = MCV) 88.4 FL 81-99 N MEAN CELL HGB (test code = MCH) 29.8 PG 27-31 N MEAN CELL HGB CONCENTRATION (test code = MCHC) 33.7 G/DL 33-37 N RED CELL DISTRIBUTION WIDTH (test code = RDW) 13.2 % 11.5-14. 5 N PLATELET COUNT (test code = PLT) 278 x10 3/uL 150-450 N MEAN PLATELET VOLUME (test code = MPV) 10.6 FL 7.4-10.4 H NEUTROPHIL % (test code = NT%) 79.1 % 42-86 N IMMATURE GRANULOCYTE % (test code = IG%) 0.2 % 0.0-2.0 N LYMPHOCYTE % (test code = LY%) 13.4 % 24-44 L MONOCYTE % (test code = MO%) 6.7 % 0.0-4.0 H EOSINOPHIL % (test code = EO%) 0.2 % 0.0-2.7 N BASOPHIL % (test code = BA%) 0.4 % 0.0-0.5 N NUCLEATED RBC % (test code = NRBC%) 0.0 % 0.0-0.0 N NEUTROPHIL # (test code = NT#) 8.85 x10 3/uL 1.8-7.7 H IMMATURE GRANULOCYTE # (test code = IG#) 0.02 x10 3/uL 0.00-0.03 N LYMPHOCYTE # (test code = LY#) 1.50 x10 3/uL 1.0-4.8 N MONOCYTE # (test code = MO#) 0.75 x10 3/uL 0.0-0.8 N EOSINOPHIL # (test code = EO#) 0.02 x10 3/uL 0.0-0.5 N BASOPHIL # (test code = BA#) 0.05 x10 3/uL 0.0-0.2 N NUCLEATED RBC # (test code = NRBC#) 0.0 X10 3/uL 0.0-0.2 N SURGICAL [id number] 18:04:00 RUN DATE: 12/18/18 [facility] - LAB PAGE 1 RUN TIME: 1804 Specimen Inqui ry RUN USER: INTERFACE PATIENT: GABRIELORALIA ACCT #: [id number] LOC: CARLO U #: [id number] AGE/SX: 33/F ROOM: RE12/14/18FLAKO DR: Misael Hubbard MD : 81 BED: DIS: STATUS: [facility] TLOC: SPEC #: [id number] RECD: 12/14/18 STATUS: ANA RE #: [id number] ROYAL: 12/14/[address] [facility] DR: Misael Hubbard MD ENTERED: 12/14/18 SP TYPE: SURG OTHR DR: Marybeth Petersen larisa or Family PhysicianORDERED: PATHGM3, PATH SPEC, H E STAIN HISTOLOGY: TISSUE ID BLK PC S LETA LEV / PROCEDURE DISPOSITION ____ ___ ___ ___ ___ GALLBLADDER A 2 1 TISSUES: A. GALLBLADDER - Gallbladder [facility]IN[facility] HISTORY Chronic Cholecystitis FINAL DIAGNOSIS GALLBLADDER, CHO LECYSTECTOMY: - Chronic cholecystitis. - One benign lymph node. GROSS DESCRIPTION GALLBLADDER: The specimen is received in a formalin filled cont ainer labeled with at least two patient identifiers and "gallbladder". It cons ists of a gallbladder measuring 5.5 x 2.5 x 1.8 cm. There is a full thickness defect extending into the lumen, measuring 1 x 0.5 cm. The cystic duct is clos ed by a surgical staple, and measures 0.1 cm in diameter. The serosa is jolly-gr ay, smooth and glistening. The gallbladder wall measures 0.3 cm in average thi ckness. There is very scanty bile in the lumen. The mucosa is jolly-brown and ve lvety with focal yellow streaks. There is one focal lymph node attached to th e gallbladder measuring 1.3 x 0.5 x 0.5 cm. No discrete lesions or gallstones are present. Cartoon Designer sections of the gallbladder along with the cystic duct margin is submitted in cassette A1. The possible lymph node is bisected a nd entirely submitted in cassette A2. ACCOUNTS RECEIVABLE COLLECTOR/eb MICROSCOPIC DESCRIPTION Javier roscopic performed. Signed SIGNATURE ON FILE Ashwini Rawls 12/18/18 1804 END OF REPORT HCG SERUM [id number] 12:15:00* Test Item Value Reference Range Interpretation Comments HCG SERUM QUAL (test code = HCGQL) NEGATIVE NEGATIVE DATE OF LAST MENSTRUAL PERIOD: 12/12/17COMMENTS: TAKING CONTROL SHOTSBASI METABOLIC [id number] 12:04:00* Test Item Value Reference Range Interpretation Comments SODIUM (test code = NA) 139 MMOL/L 136-143 N POTASSIUM (test code = K) 4.5 MMOL/L 3.5-5.1 N CHLORIDE (test code = CL) 102 MMOL/L 98-107 N CARBON DIOXIDE (test code = CO2) 26 mmol/L 24-31 N GLUCOSE (test code = GLU) 105 mg/dL 70-104 H BLOOD UREA NITROGEN (test code = BUN) 9.5 MG/DL 7.0-21.0 N GLOMERULAR FILTRATION RATE (test code = GFR) >=60 max estimate >60 The estimated glomerular filtration rate is computed usingpatient race, age (>18), sex, and serum creatinine. If anyof the needed data elements are missing the Laboratory cannot compute an estimation of the glomerular filtration rate. CREATININE (test code = CREAT) 0.6 mg/dL 0.8-1.5 L CALCIUM (test code = CA) 8.9 mg/dL 8.8-10.2 N CBC W/AUTO [id number] 11:38:00* Test Item Value Reference Range Interpretation Comments WHITE BLOOD CELL (test code = WBC) 6.4 x10 3/uL 4.8-10.8 N RED BLOOD CELL (test code = RBC) 4.18 x10 6/uL 4.20-5.40 L HEMOGLOBIN (test code = HGB) 12.7 g/dL 14.5-20 L HEMATOCRIT (test code = HCT) 38.6 % 37.0-47.0 N MEAN CELL VOLUME (test code = MCV) 92.3 fL 81.0-99.0 N MEAN CELL HGB (test code = MCH) 30.4 pg 27-31 N MEAN CELL HGB CONCENTRATION (test code = MCHC) 32.9 G/DL 33-36.5 L RED CELL DISTRIBUTION WIDTH (test code = RDW) 13.9 % 12.9-16. 9 N PLATELET COUNT (test code = PLT) 259 150-440 N MEAN PLATELET VOLUME (test code = MPV) 10.3 fL 8.9-12.4 N NEUTROPHIL % (test code = NT%) 52.0 % 42.2-75.2 N LYMPHOCYTE % (test code = LY%) 36.5 % 20.5-51.1 N MONOCYTE % (test code = MO%) 10.0 % 1.7-9.3 H EOSINOPHIL % (test code = EO%) 0.8 % 0.0-7.0 N BASOPHIL % (test code = BA%) 0.5 % 0-2.5 N NEUTROPHIL # (test code = NT#) 3.34 x10 3/uL 1.80-7.70 N LYMPHOCYTE # (test code = LY#) 2.34 x10 3/uL 1.00-4.80 N MONOCYTE # (test code = MO#) 0.64 x10 3/uL 0.00-0.80 N EOSINOPHIL # (test code = EO#) 0.05 x10 3/uL 0.00-0.45 N BASOPHIL # (test code = BA#) 0.03 x10 3/uL 0.0-0.20 N - HEPA IMAG INCL GB W [id number] 14:39:00Patient Name: ORALIA RIOS Unit No: [id number] EXAMS: CPT CODE: [id number] HEPA IMAG INCL GB W PHA [id number] HIDA scan with gallbladder ejection fraction. DIAGNOSIS: r10.9 UNSPECIFIED ABDOMINAL PAIN Comparison: None Location: W1 Approximately 6.5 millicuries of technetium 99m Choletec was given intravenously. Dynamic imaging of the abdomen was performed for 90 minutes. There is prompt homogeneous accumulation of the radionuclide tracer within a normal-size liver. There is rapid excretion into bile ducts, gallbladder and bowel. The gallbladder is confidently identified at 60 minutes. One hour following injection of the radionuclide, approximately 1.9micrograms of cholecystokinin is injected intravenously. A time activity curve is generated by scanning over the gallbladder fossa. The gallbladder ejection fraction is only 13 %. Please note, normal gallbladder ejection fraction exceeds 35%. IMPRESSION: 1. Patent common bile duct and cystic duct. 2. The gallbladder ejection fraction is only 13%. at 1439 Reported and signed by: Jesus navarrete MD CC: Misael Hubbard MD Technologist: Garret Love [facility] r Dt/Tm: 12/05/2018 (1949) by:[email or web address] Printed Date/Ti me: 12/05/2018 (9939) Name: ORALIA RIOS [facility] Phys: 01 - Misael Hubbard MD [address] : 1985 Age: 33 Sex: [place] [id number] Loc: P.NUC Exam Date: 12/05/2018 Status: REG CLI PH: FAX: PAGE 1 Signed Report URINALYSIS [id number] 15:35:00* Test Item Value Reference Range Interpretation Comments UA COLOR (test code = COLU) YELLOW YELLOW UA APPEARANCE (test code = APPU) CLEAR CLEAR UA GLUCOSE DIPSTICK (test code = DGLUU) NEGATIVE mg/dL NEGATIVE UA BILIRUBIN DIPSTICK (test code = BILU) NEGATIVE mg/dL NEGATIVE UA KETONE DIPSTICK (test code = KETU) >150 (4+) mg/dL NEGATIVE A UA SPECIFIC GRAVITY (test code = SGU) 1.030 1.001-1.035 UA BLOOD DIPSTICK (test code = MATILDE) 0.06 mg/dL (1+) mg/dL NEGATIVE A UA PH DIPSTICK (test code = BERYL) 6.0 5.0-8.0 UA PROTEIN DIPSTICK (test code = PROU) 100 (2+) mg/dL NEGATIVE A UA UROBILINIOGEN DIPSTICK (test code = URO) 2.0 (1+) mg/dL NEGATIVE A UA NITRITE DIPSTICK (test code = HANSEL) NEGATIVE NEGATIVE UA LEUKOCYTE ESTERASE W REFLEX (test code = LEUUR) 25 Stevie/uL (Trace) Stevie/uL NEGATIVE A UA WBC (test code = WBCU) 0-5 per HPF 0-5 UA RBC (test code = RBCU) 6-10 #/HPF 0-5 A UA EPITHELIAL CELLS (test code = EPIU) FEW per HPF FEW UA BACTERIA (test code = BACU) FEW #/HPF NONE A UA MUCUS (test code = MUCU) MODERATE #/LPF FEW A Urine Source? Clean CatchDRUGS OF ABUSE SCREEN [id number] 15:35:00* Test Item Value Reference Range Interpretation Comments URN COCAINE (test code = COCAURN) NEGATIVE <300 ng/mL URN CANNABINOIDS (test code = CANNABURN) POSITIVE <50 ng/mL A This test provides only a preliminary test result. A morespecific alternate chemical method must be used in order toobtain a confirmed analytical result. Gas chromatography/mass spectrometry (GC/MS) is thepreferred confirmatory method. Other chemical confirmationmethods are available. Clinical consideration and professional judgment should be applied to any drug of abusetest result, particularly when preliminary positive resultsare used.Unconfirmed screening results must not be used fornon-medical purposes (e.g., employment testing, legaltesting). URN AMPHETAMINE (test code = AMPHETURN) NEGATIVE <1000 ng/mL URN BARBITURATE (test code = BARBITURN) NEGATIVE <200 ng/mL URN BENZODIAZEPINE (test code = BENZOURN) NEGATIVE <200 ng/mL URN OPIATES (test code = OPIATURN) POSITIVE <300 ng/mL A This test provides only a preliminary test result. A morespecific alternate chemical method must be used in order toobtain a confirmed analytical result. Gas chromatography/mass spectrometry (GC/MS) is thepreferred confirmatory method. Other chemical confirmationmethods are available. Clinical consideration and professional judgment should be applied to any drug of abusetest result, particularly when preliminary positive resultsare used.Unconfirmed screening results must not be used fornon-medical purposes (e.g., employment testing, legaltesting). URN PHENCYCLIDINE (PCP) (test code = PHENCURN) NEGATIVE <25 ng/ mL URN METHADONE (test code = METHAURN) NEGATIVE <300 ng/mL Urine Source? Clean CatchBASIC METABOLIC [id number] 15:23:00* Test Item Value Reference Range Interpretation Comments SODIUM (test code = NA) 140 mmol/L 136-145 N POTASSIUM (test code = K) 3.7 mmol/L 3.5-5.1 N CHLORIDE (test code = CL) 106.0 mmol/L 98-107 N CARBON DIOXIDE (test code = CO2) 22.0 mmol/L 21-32 N ANION GAP (test code = GAP) 15.7 10-20 N GLUCOSE (test code = GLU) 94 mg/dL 74-106 N BLOOD UREA NITROGEN (test code = BUN) 12 mg/dL 7-18 N GLOMERULAR FILTRATION RATE (test code = GFR) > 60 mL/min >=60 Estimated GFR by using Modified MDRD formula.Chronic kidney disease is defined as either kidney damageor GFR <60 mL/min/1.73 m2 for >3 months. CREATININE (test code = CREAT) 0.90 mg/dL 0.55-1.02 N Note change in reference range due to change in reagent. BUN/CREATININE RATIO (test code = BUN/CREA) 13.8 10-20 N CALCIUM (test code = CA) 9.2 mg/dL 8.5-10.1 N HEPATIC FUNCTION [id number] 15:23:00* Test Item Value Reference Range Interpretation Comments TOTAL PROTEIN (test code = PROT) 7.7 gram/dL 6.4-8.2 N ALBUMIN (test code = ALB) 4.2 g/dL 3.4-5.0 N GLOBULIN (test code = GLOB) 3.5 gram/dL 2.7-4.2 N ALBUMIN/GLOBULIN RATIO (test code = A/G) 1.2 0.75-1.50 N BILIRUBIN TOTAL (test code = BILT) 0.60 mg/dL 0.0-1.0 N BILIRUBIN DIRECT (test code = BILD) 0.15 mg/dL 0.0-0.20 N SGOT/AST (test code = AST) 10 IUnit/L 15-37 L SGPT/ALT (test code = ALT) 15 IUnit/L 12-78 N ALKALINE PHOSPHATASE TOTAL (test code = ALKP) 72 IUnit/L 45-117 N Note change in reference range due to change in reagent. HCG SERUM [id number] 15:23:00* Test Item Value Reference Range Interpretation Comments HCG SERUM QUAL (test code = HCGQL) NEGATIVE NEGATIVE This HCGQL test is NOT applicable for MALE patients.Check with nurse about probable order error.If Tumor Marker Test needed, nurse should order test "HCGTU"(Test #[id number]) [id number] 15:23:00* Test Item Value Reference Range Interpretation Comments ACETAMINOPHEN (test code = ACET) < 10 mcg/mL 10-30 L A RANGE OF 10-30 mcg/mL IS A THERAPEUTIC RANGE. TOXIC CONCENTRATIONS: >150 mcg/mL AT 4 HOURS AFTER INGESTION >= 50 mcg/mL AT 12 HOURS AFTER INGESTION [id number] 15:23:00* Test Item Value Reference Range Interpretation Comments SALICYLATE (test code = EMMA) < 1.7 mg/dL 2.8-20.0 L [id number] 15:23:00* Test Item Value Reference Range Interpretation Comments ALCOHOL (test code = ALC) < 3 mg/dL 0.0-3.0 N -- INTERPRETIVE DATA NOTE: POSITIVE SCREENING RESULTS SHOULD BE CONSIDERED PRESUMPTIVE.WHEN COLLECTED FOR MEDICAL PURPOSES ONLY. SPECIMEN WILL NOTBE COLLECTED BY CHAIN OF CUSTODY.IF A CONFIRMATION OF POSITIVE RESULTS IS DESIRED, ACONFIRMATION TEST MUST BE REQUESTED BY THE PHYSICIAN AT ANADDITIONAL CHARGE TO THE PATIENT. BASIC METABOLIC [id number] 15:18:00* Test Item Value Reference Range Interpretation Comments SODIUM (test code = NA) 140 mmol/L 136-145 N POTASSIUM (test code = K) 3.7 mmol/L 3.5-5.1 N CHLORIDE (test code = CL) 106.0 mmol/L 98-107 N CARBON DIOXIDE (test code = CO2) 22.0 mmol/L 21-32 N ANION GAP (test code = GAP) 15.7 10-20 N GLUCOSE (test code = GLU) 94 mg/dL 74-106 N BLOOD UREA NITROGEN (test code = BUN) 12 mg/dL 7-18 N GLOMERULAR FILTRATION RATE (test code = GFR) > 60 mL/min >=60 Estimated GFR by using Modified MDRD formula.Chronic kidney disease is defined as either kidney damageor GFR <60 mL/min/1.73 m2 for >3 months. CREATININE (test code = CREAT) 0.90 mg/dL 0.55-1.02 N Note change in reference range due to change in reagent. BUN/CREATININE RATIO (test code = BUN/CREA) 13.8 10-20 N CALCIUM (test code = CA) 9.2 mg/dL 8.5-10.1 N HEPATIC FUNCTION [id number] 15:18:00* Test Item Value Reference Range Interpretation Comments TOTAL PROTEIN (test code = PROT) 7.7 gram/dL 6.4-8.2 N ALBUMIN (test code = ALB) 4.2 g/dL 3.4-5.0 N GLOBULIN (test code = GLOB) 3.5 gram/dL 2.7-4.2 N ALBUMIN/GLOBULIN RATIO (test code = A/G) 1.2 0.75-1.50 N BILIRUBIN TOTAL (test code = BILT) 0.60 mg/dL 0.0-1.0 N BILIRUBIN DIRECT (test code = BILD) 0.15 mg/dL 0.0-0.20 N SGOT/AST (test code = AST) 10 IUnit/L 15-37 L SGPT/ALT (test code = ALT) 15 IUnit/L 12-78 N ALKALINE PHOSPHATASE TOTAL (test code = ALKP) 72 IUnit/L 45-117 N Note change in reference range due to change in reagent. HCG SERUM [id number] 15:18:00* Test Item Value Reference Range Interpretation Comments HCG SERUM QUAL (test code = HCGQL) NEGATIVE [id number] 15:18:00* Test Item Value Reference Range Interpretation Comments ACETAMINOPHEN (test code = ACET) < 10 mcg/mL 10-30 L A RANGE OF 10-30 mcg/mL IS A THERAPEUTIC RANGE. TOXIC CONCENTRATIONS: >150 mcg/mL AT 4 HOURS AFTER INGESTION >= 50 mcg/mL AT 12 HOURS AFTER INGESTION [id number] 15:18:00* Test Item Value Reference Range Interpretation Comments SALICYLATE (test code = EMMA) < 1.7 mg/dL 2.8-20.0 L [id number] 15:18:00* Test Item Value Reference Range Interpretation Comments ALCOHOL (test code = ALC) < 3 mg/dL 0.0-3.0 N -- INTERPRETIVE DATA NOTE: POSITIVE SCREENING RESULTS SHOULD BE CONSIDERED PRESUMPTIVE.WHEN COLLECTED FOR MEDICAL PURPOSES ONLY. SPECIMEN WILL NOTBE COLLECTED BY CHAIN OF CUSTODY.IF A CONFIRMATION OF POSITIVE RESULTS IS DESIRED, ACONFIRMATION TEST MUST BE REQUESTED BY THE PHYSICIAN AT ANADDITIONAL CHARGE TO THE PATIENT. URINALYSIS [id number] 15:12:00* Test Item Value Reference Range Interpretation Comments UA COLOR (test code = COLU) YELLOW YELLOW UA APPEARANCE (test code = APPU) CLEAR CLEAR UA GLUCOSE DIPSTICK (test code = DGLUU) NEGATIVE mg/dL NEGATIVE UA BILIRUBIN DIPSTICK (test code = BILU) NEGATIVE mg/dL NEGATIVE UA KETONE DIPSTICK (test code = KETU) >150 (4+) mg/dL NEGATIVE A UA SPECIFIC GRAVITY (test code = SGU) 1.030 1.001-1.035 UA BLOOD DIPSTICK (test code = MATILDE) 0.06 mg/dL (1+) mg/dL NEGATIVE A UA PH DIPSTICK (test code = BERYL) 6.0 5.0-8.0 UA PROTEIN DIPSTICK (test code = PROU) 100 (2+) mg/dL NEGATIVE A UA UROBILINIOGEN DIPSTICK (test code = URO) 2.0 (1+) mg/dL NEGATIVE A UA NITRITE DIPSTICK (test code = HANSEL) NEGATIVE NEGATIVE UA LEUKOCYTE ESTERASE W REFLEX (test code = LEUUR) 25 Stevie/uL (Trace) Stevie/uL NEGATIVE A UA WBC (test code = WBCU) 0-5 per HPF 0-5 UA RBC (test code = RBCU) 6-10 #/HPF 0-5 A UA EPITHELIAL CELLS (test code = EPIU) FEW per HPF FEW UA BACTERIA (test code = BACU) FEW #/HPF NONE A UA MUCUS (test code = MUCU) MODERATE #/LPF FEW A Urine Source? Clean CatchDRUGS OF ABUSE SCREEN [id number] 15:12:00* Test Item Value Reference Range Interpretation Comments URN COCAINE (test code = COCAURN) <300 ng/mL URN CANNABINOIDS (test code = CANNABURN) <50 ng/mL URN AMPHETAMINE (test code = AMPHETURN) <1000 ng/mL URN BARBITURATE (test code = BARBITURN) <200 ng/mL URN BENZODIAZEPINE (test code = BENZOURN) <200 ng/mL URN OPIATES (test code = OPIATURN) <300 ng/mL URN PHENCYCLIDINE (PCP) (test code = PHENCURN) <25 ng/ mL URN METHADONE (test code = METHAURN) <300 ng/mL Urine Source? Clean CatchCBC W/O [id number] 15:09:00* Test Item Value Reference Range Interpretation Comments WHITE BLOOD CELL (test code = WBC) 14.0 K/mm3 4.5-12.5 H RED BLOOD CELL (test code = RBC) 4.75 mill/mm3 3.7-5.2 N HEMOGLOBIN (test code = HGB) 14.3 gram/dL 11.5-15.5 N HEMATOCRIT (test code = HCT) 43.4 % 36.0-46.0 N MEAN CELL VOLUME (test code = MCV) 91.4 fL 80-98 N MEAN CELL HGB (test code = MCH) 30.1 picogram 27.0-33.0 N MEAN CELL HGB CONCETRATION (test code = MCHC) 32.9 gram/dL 33.0-36. 0 L RED CELL DISTRIBUTION WIDTH (test code = RDW) 13.2 % 11.6-16. 2 N PLATELET COUNT (test code = PLT) 337 K/mm3 150-450 N MEAN PLATELET VOLUME (test code = MPV) 10.2 fL 6.7-11.0 N URINALYSIS [id number] 15:09:00* Test Item Value Reference Range Interpretation Comments UA COLOR (test code = COLU) YELLOW YELLOW UA APPEARANCE (test code = APPU) CLEAR CLEAR UA GLUCOSE DIPSTICK (test code = DGLUU) NEGATIVE mg/dL NEGATIVE UA BILIRUBIN DIPSTICK (test code = BILU) NEGATIVE mg/dL NEGATIVE UA KETONE DIPSTICK (test code = KETU) >150 (4+) mg/dL NEGATIVE A UA SPECIFIC GRAVITY (test code = SGU) 1.030 1.001-1.035 UA BLOOD DIPSTICK (test code = MATILDE) 0.06 mg/dL (1+) mg/dL NEGATIVE A UA PH DIPSTICK (test code = BERYL) 6.0 5.0-8.0 UA PROTEIN DIPSTICK (test code = PROU) 100 (2+) mg/dL NEGATIVE A UA UROBILINIOGEN DIPSTICK (test code = URO) 2.0 (1+) mg/dL NEGATIVE A UA NITRITE DIPSTICK (test code = HANSEL) NEGATIVE NEGATIVE UA LEUKOCYTE ESTERASE W REFLEX (test code = LEUUR) 25 Stevie/uL (Trace) Stevie/uL NEGATIVE A UA WBC (test code = WBCU) per HPF 0-5 UA RBC (test code = RBCU) per HPF 0-5 UA EPITHELIAL CELLS (test code = EPIU) per HPF Few UA BACTERIA (test code = BACU) per HPF NONE Urine Source? Clean CatchDRUGS OF ABUSE SCREEN [id number] 15:09:00* Test Item Value Reference Range Interpretation Comments URN COCAINE (test code = COCAURN) <300 ng/mL URN CANNABINOIDS (test code = CANNABURN) <50 ng/mL URN AMPHETAMINE (test code = AMPHETURN) <1000 ng/mL URN BARBITURATE (test code = BARBITURN) <200 ng/mL URN BENZODIAZEPINE (test code = BENZOURN) <200 ng/mL URN OPIATES (test code = OPIATURN) <300 ng/mL URN PHENCYCLIDINE (PCP) (test code = PHENCURN) <25 ng/ mL URN METHADONE (test code = METHAURN) <300 ng/mL Urine Source? Clean CatchURINALYSIS [id number] 09:12:00* Test Item Value Reference Range Interpretation Comments UA COLOR (test code = COLU) YELLOW YELLOW UA APPEARANCE (test code = APPU) CLEAR CLEAR UA GLUCOSE DIPSTICK (test code = DGLUU) NEGATIVE mg/dL NEGATIVE UA BILIRUBIN DIPSTICK (test code = BILU) NEGATIVE NEGATIVE UA KETONE DIPSTICK (test code = KETU) TRACE mg/dL NEGATIVE UA SPECIFIC GRAVITY (test code = SGU) <=1.005 1.001-1.035 UA BLOOD DIPSTICK (test code = MATILDE) NEGATIVE NEGATIVE UA PH DIPSTICK (test code = BERYL) 6.5 5.0-8.0 UA PROTEIN DIPSTICK (test code = PROU) NEGATIVE mg/dL Neg-15 UA UROBILINIOGEN DIPSTICK (test code = URO) 0.2 mg/dL 0.0-0.2 UA NITRITE DIPSTICK (test code = HANSEL) NEGATIVE NEGATIVE UA LEUKOCYTE ESTERASE DIPSTICK (test code = LEUU) NEGATIVE uL NEGA TIVE UA MICROSCOPIC NEEDED? (test code = UAMICRO) YES UA WBC (test code = WBCU) 0-5 per HPF 0-5 UA RBC (test code = RBCU) 0-3 per HPF 0-5 UA EPITHELIAL CELLS (test code = EPIU) Few (2-5/hpf) per HPF Few UA BACTERIA (test code = BACU) MODERATE per HPF NONE A Urine Source? Clean CatchURINALYSIS [id number] 09:10:00* Test Item Value Reference Range Interpretation Comments UA COLOR (test code = COLU) YELLOW YELLOW UA APPEARANCE (test code = APPU) CLEAR CLEAR UA GLUCOSE DIPSTICK (test code = DGLUU) NEGATIVE mg/dL NEGATIVE UA BILIRUBIN DIPSTICK (test code = BILU) NEGATIVE NEGATIVE UA KETONE DIPSTICK (test code = KETU) TRACE mg/dL NEGATIVE UA SPECIFIC GRAVITY (test code = SGU) <=1.005 1.001-1.035 UA BLOOD DIPSTICK (test code = MATILDE) NEGATIVE NEGATIVE UA PH DIPSTICK (test code = BERYL) 6.5 5.0-8.0 UA PROTEIN DIPSTICK (test code = PROU) NEGATIVE mg/dL Neg-15 UA UROBILINIOGEN DIPSTICK (test code = URO) 0.2 mg/dL 0.0-0.2 UA NITRITE DIPSTICK (test code = HANSEL) NEGATIVE NEGATIVE UA LEUKOCYTE ESTERASE DIPSTICK (test code = LEUU) NEGATIVE uL NEGA TIVE UA MICROSCOPIC NEEDED? (test code = UAMICRO) UA WBC (test code = WBCU) per HPF 0-5 UA RBC (test code = RBCU) per HPF 0-5 UA EPITHELIAL CELLS (test code = EPIU) per HPF Few UA BACTERIA (test code = BACU) per HPF NONE Urine Source? Clean CatchBASIC METABOLIC [id number] 07:57:00* Test Item Value Reference Range Interpretation Comments SODIUM (test code = NA) 142 mmol/L 128-145 N POTASSIUM (test code = K) 3.2 mmol/L 3.5-5.1 L CHLORIDE (test code = CL) 108.0 mmol/L 98-107 H CARBON DIOXIDE (test code = CO2) 24.4 mmol/L 22-29 N ANION GAP (test code = GAP) 13 mmol/L 10-20 N GLUCOSE (test code = GLU) 113 mg/dL 70-110 H BLOOD UREA NITROGEN (test code = BUN) 5 mg/dL 7-22 L GLOMERULAR FILTRATION RATE (test code = GFR) > 60 mL/min >=60 Estimated GFR by using Modified MDRD formula.Chronic kidney disease is defined as either kidney damageor GFR <60 mL/min/1.73 m2 for >3 months. CREATININE (test code = CREAT) 0.84 mg/dL 0.55-1.3 N BUN/CREATININE RATIO (test code = BUN/CREA) 6.0 10-20 L CALCIUM (test code = CA) 8.1 mg/dL 8.0-10.5 N HEPATIC FUNCTION [id number] 07:57:00* Test Item Value Reference Range Interpretation Comments TOTAL PROTEIN (test code = PROT) 6.9 gram/dL 6.1-7.8 N ALBUMIN (test code = ALB) 3.6 g/dL 3.3-4.4 N GLOBULIN (test code = GLOB) 3.3 G/DL 1-10 N ALBUMIN/GLOBULIN RATIO (test code = A/G) 1.1 0.75-1.50 N BILIRUBIN TOTAL (test code = BILT) 0.40 mg/dL 0.2-1.2 N BILIRUBIN DIRECT (test code = BILD) 0.10 mg/dL 0.0-0.30 N SGOT/AST (test code = AST) 15 U/L 10-39 N SGPT/ALT (test code = ALT) 12 U/L 10-69 N ALKALINE PHOSPHATASE TOTAL (test code = ALKP) 57 U/L 50-139 N [id number] 07:57:00* Test Item Value Reference Range Interpretation Comments LIPASE (test code = LIP) 76 Unit/L 144-286 L HCG SERUM [id number] 07:57:00* Test Item Value Reference Range Interpretation Comments HCG SERUM QUAL (test code = HCGQL) NEGATIVE NEGATIVE This HCGQL test is NOT applicable for MALE patients.Check with nurse about probable order error.If Tumor Marker Test needed, nurse should order test "HCGTU"(Test #550.55359) [id number] 07:57:00* Test Item Value Reference Range Interpretation Comments TROPONIN-I (test code = TROPI) <0.015 ng/mL 0.00-0.056 N BASIC METABOLIC [id number] 07:51:00* Test Item Value Reference Range Interpretation Comments SODIUM (test code = NA) 142 mmol/L 128-145 N POTASSIUM (test code = K) 3.2 mmol/L 3.5-5.1 L CHLORIDE (test code = CL) 108.0 mmol/L 98-107 H CARBON DIOXIDE (test code = CO2) 24.4 mmol/L 22-29 N ANION GAP (test code = GAP) 13 mmol/L 10-20 N GLUCOSE (test code = GLU) 113 mg/dL 70-110 H BLOOD UREA NITROGEN (test code = BUN) 5 mg/dL 7-22 L GLOMERULAR FILTRATION RATE (test code = GFR) > 60 mL/min >=60 Estimated GFR by using Modified MDRD formula.Chronic kidney disease is defined as either kidney damageor GFR <60 mL/min/1.73 m2 for >3 months. CREATININE (test code = CREAT) 0.84 mg/dL 0.55-1.3 N BUN/CREATININE RATIO (test code = BUN/CREA) 6.0 10-20 L CALCIUM (test code = CA) 8.1 mg/dL 8.0-10.5 N HEPATIC FUNCTION [id number] 07:51:00* Test Item Value Reference Range Interpretation Comments TOTAL PROTEIN (test code = PROT) gram/dL 6.4-8.2 ALBUMIN (test code = ALB) g/dL 3.4-5.0 GLOBULIN (test code = GLOB) G/DL 1-10 ALBUMIN/GLOBULIN RATIO (test code = A/G) 0.75-1.50 BILIRUBIN TOTAL (test code = BILT) mg/dL 0.0-1.0 BILIRUBIN DIRECT (test code = BILD) mg/dL 0.0-0.20 SGOT/AST (test code = AST) IUnit/L 15-37 SGPT/ALT (test code = ALT) IUnit/L 12-78 ALKALINE PHOSPHATASE TOTAL (test code = ALKP) IUnit/L 45-117 [id number] 07:51:00* Test Item Value Reference Range Interpretation Comments LIPASE (test code = LIP) U/L 73.0-393.0 HCG SERUM [id number] 07:51:00* Test Item Value Reference Range Interpretation Comments HCG SERUM QUAL (test code = HCGQL) NEGATIVE [id number] 07:51:00* Test Item Value Reference Range Interpretation Comments TROPONIN-I (test code = TROPI) ng/mL 0-0.045 BASIC METABOLIC [id number] 07:51:00* Test Item Value Reference Range Interpretation Comments SODIUM (test code = NA) 142 mmol/L 128-145 N POTASSIUM (test code = K) 3.2 mmol/L 3.5-5.1 L CHLORIDE (test code = CL) 108.0 mmol/L 98-107 H CARBON DIOXIDE (test code = CO2) 24.4 mmol/L 22-29 N ANION GAP (test code = GAP) 13 mmol/L 10-20 N GLUCOSE (test code = GLU) 113 mg/dL 70-110 H BLOOD UREA NITROGEN (test code = BUN) 5 mg/dL 7-22 L GLOMERULAR FILTRATION RATE (test code = GFR) > 60 mL/min >=60 Estimated GFR by using Modified MDRD formula.Chronic kidney disease is defined as either kidney damageor GFR <60 mL/min/1.73 m2 for >3 months. CREATININE (test code = CREAT) 0.84 mg/dL 0.55-1.3 N BUN/CREATININE RATIO (test code = BUN/CREA) 6.0 10-20 L CALCIUM (test code = CA) 8.1 mg/dL 8.0-10.5 N HEPATIC FUNCTION [id number] 07:51:00* Test Item Value Reference Range Interpretation Comments TOTAL PROTEIN (test code = PROT) gram/dL 6.4-8.2 ALBUMIN (test code = ALB) g/dL 3.4-5.0 GLOBULIN (test code = GLOB) G/DL 1-10 ALBUMIN/GLOBULIN RATIO (test code = A/G) 0.75-1.50 BILIRUBIN TOTAL (test code = BILT) mg/dL 0.0-1.0 BILIRUBIN DIRECT (test code = BILD) mg/dL 0.0-0.20 SGOT/AST (test code = AST) IUnit/L 15-37 SGPT/ALT (test code = ALT) IUnit/L 12-78 ALKALINE PHOSPHATASE TOTAL (test code = ALKP) IUnit/L 45-117 [id number] 07:51:00* Test Item Value Reference Range Interpretation Comments LIPASE (test code = LIP) U/L 73.0-393.0 HCG SERUM [id number] 07:51:00* Test Item Value Reference Range Interpretation Comments HCG SERUM QUAL (test code = HCGQL) NEGATIVE NEGATIVE This HCGQL test is NOT applicable for MALE patients.Check with nurse about probable order error.If Tumor Marker Test needed, nurse should order test "HCGTU"(Test #550.08258) [id number] 07:51:00* Test Item Value Reference Range Interpretation Comments TROPONIN-I (test code = TROPI) ng/mL 0-0.045 CBC W/O [id number] 07:42:00* Test Item Value Reference Range Interpretation Comments WHITE BLOOD CELL (test code = WBC) 5.7 K/mm3 4.5-12.5 N RED BLOOD CELL (test code = RBC) 4.07 mill/mm3 3.7-5.2 N HEMOGLOBIN (test code = HGB) 12.5 gram/dL 11.5-15.5 N HEMATOCRIT (test code = HCT) 37.8 % 36.0-46.0 N MEAN CELL VOLUME (test code = MCV) 92.9 fL 80-98 N MEAN CELL HGB (test code = MCH) 30.7 picogram 27.0-33.0 N MEAN CELL HGB CONCETRATION (test code = MCHC) 33.1 gram/dL 33.0-36. 0 N RED CELL DISTRIBUTION WIDTH (test code = RDW) 13.0 % 11.6-16. 2 N RED CELL DISTRIBUTION WIDTH SD (test code = RDW-SD) 45.4 fL 37 .0-51.0 N PLATELET COUNT (test code = PLT) 209 K/mm3 150-450 MEAN PLATELET VOLUME (test code = MPV) 10.4 fL 6.7-11.0 N URINALYSIS [id number] 12:10:00* Test Item Value Reference Range Interpretation Comments UA COLOR (test code = COLU) YELLOW YELLOW UA APPEARANCE (test code = APPU) CLEAR CLEAR UA GLUCOSE DIPSTICK (test code = DGLUU) NEGATIVE mg/dL NEGATIVE UA BILIRUBIN DIPSTICK (test code = BILU) NEGATIVE mg/dL NEGATIVE UA KETONE DIPSTICK (test code = KETU) >150 (4+) mg/dL NEGATIVE A UA SPECIFIC GRAVITY (test code = SGU) 1.029 1.001-1.035 UA BLOOD DIPSTICK (test code = MATILDE) 0.03 mg/dL (Trace) mg/dL NEGATI VE A UA PH DIPSTICK (test code = BERYL) 6.0 5.0-8.0 UA PROTEIN DIPSTICK (test code = PROU) 30 (1+) mg/dL NEGATIVE A UA UROBILINIOGEN DIPSTICK (test code = URO) Normal mg/dL NEGATIVE UA NITRITE DIPSTICK (test code = HANSEL) NEGATIVE NEGATIVE UA LEUKOCYTE ESTERASE W REFLEX (test code = LEUUR) NEGATIVE Stevie/uL NEGATIVE UA WBC (test code = WBCU) 0-5 per HPF 0-5 UA RBC (test code = RBCU) 3-5 #/HPF 0-5 UA EPITHELIAL CELLS (test code = EPIU) FEW per HPF FEW UA BACTERIA (test code = BACU) FEW #/HPF NONE A UA MUCUS (test code = MUCU) MANY #/LPF FEW A Urine Source? Clean CatchBASIC METABOLIC [id number] 10:56:00* Test Item Value Reference Range Interpretation Comments SODIUM (test code = NA) 142 mmol/L 136-145 N POTASSIUM (test code = K) 4.5 mmol/L 3.5-5.1 N CHLORIDE (test code = CL) 111.0 mmol/L 98-107 H CARBON DIOXIDE (test code = CO2) 20.0 mmol/L 21-32 L ANION GAP (test code = GAP) 15.5 10-20 N GLUCOSE (test code = GLU) 145 mg/dL 74-106 H BLOOD UREA NITROGEN (test code = BUN) 10 mg/dL 7-18 N GLOMERULAR FILTRATION RATE (test code = GFR) > 60 mL/min >=60 Estimated GFR by using Modified MDRD formula.Chronic kidney disease is defined as either kidney damageor GFR <60 mL/min/1.73 m2 for >3 months. CREATININE (test code = CREAT) 0.90 mg/dL 0.55-1.02 N Note change in reference range due to change in reagent. BUN/CREATININE RATIO (test code = BUN/CREA) 11.1 10-20 N CALCIUM (test code = CA) 8.4 mg/dL 8.5-10.1 L HEPATIC FUNCTION [id number] 10:56:00* Test Item Value Reference Range Interpretation Comments TOTAL PROTEIN (test code = PROT) 7.4 gram/dL 6.4-8.2 N ALBUMIN (test code = ALB) 3.9 g/dL 3.4-5.0 N GLOBULIN (test code = GLOB) 3.5 gram/dL 2.7-4.2 N ALBUMIN/GLOBULIN RATIO (test code = A/G) 1.1 0.75-1.50 N BILIRUBIN TOTAL (test code = BILT) 0.40 mg/dL 0.0-1.0 N BILIRUBIN DIRECT (test code = BILD) < 0.05 mg/dL 0.0-0.20 N SGOT/AST (test code = AST) 26 IUnit/L 15-37 N SGPT/ALT (test code = ALT) 16 IUnit/L 12-78 N ALKALINE PHOSPHATASE TOTAL (test code = ALKP) 68 IUnit/L 45-117 N Note change in reference range due to change in reagent. [id number] 10:56:00* Test Item Value Reference Range Interpretation Comments LIPASE (test code = LIP) 82 U/L 73.0-393.0 N HCG SERUM [id number] 10:56:00* Test Item Value Reference Range Interpretation Comments HCG SERUM QUAL (test code = HCGQL) NEGATIVE NEGATIVE This HCGQL test is NOT applicable for MALE patients.Check with nurse about probable order error.If Tumor Marker Test needed, nurse should order test "HCGTU"(Test #550.85392) [id number] 10:56:00* Test Item Value Reference Range Interpretation Comments TROPONIN-I (test code = TROPI) <0.015 ng/mL 0-0.045 N BASIC METABOLIC [id number] 10:54:00* Test Item Value Reference Range Interpretation Comments SODIUM (test code = NA) 142 mmol/L 136-145 N POTASSIUM (test code = K) 4.5 mmol/L 3.5-5.1 N CHLORIDE (test code = CL) 111.0 mmol/L 98-107 H CARBON DIOXIDE (test code = CO2) 20.0 mmol/L 21-32 L ANION GAP (test code = GAP) 15.5 10-20 N GLUCOSE (test code = GLU) 145 mg/dL 74-106 H BLOOD UREA NITROGEN (test code = BUN) 10 mg/dL 7-18 N GLOMERULAR FILTRATION RATE (test code = GFR) > 60 mL/min >=60 Estimated GFR by using Modified MDRD formula.Chronic kidney disease is defined as either kidney damageor GFR <60 mL/min/1.73 m2 for >3 months. CREATININE (test code = CREAT) 0.90 mg/dL 0.55-1.02 N Note change in reference range due to change in reagent. BUN/CREATININE RATIO (test code = BUN/CREA) 11.1 10-20 N CALCIUM (test code = CA) 8.4 mg/dL 8.5-10.1 L HEPATIC FUNCTION [id number] 10:54:00* Test Item Value Reference Range Interpretation Comments TOTAL PROTEIN (test code = PROT) 7.4 gram/dL 6.4-8.2 N ALBUMIN (test code = ALB) 3.9 g/dL 3.4-5.0 N GLOBULIN (test code = GLOB) 3.5 gram/dL 2.7-4.2 N ALBUMIN/GLOBULIN RATIO (test code = A/G) 1.1 0.75-1.50 N BILIRUBIN TOTAL (test code = BILT) 0.40 mg/dL 0.0-1.0 N BILIRUBIN DIRECT (test code = BILD) < 0.05 mg/dL 0.0-0.20 N SGOT/AST (test code = AST) 26 IUnit/L 15-37 N SGPT/ALT (test code = ALT) 16 IUnit/L 12-78 N ALKALINE PHOSPHATASE TOTAL (test code = ALKP) 68 IUnit/L 45-117 N Note change in reference range due to change in reagent. [id number] 10:54:00* Test Item Value Reference Range Interpretation Comments LIPASE (test code = LIP) 82 U/L 73.0-393.0 N HCG SERUM [id number] 10:54:00* Test Item Value Reference Range Interpretation Comments HCG SERUM QUAL (test code = HCGQL) NEGATIVE [id number] 10:54:00* Test Item Value Reference Range Interpretation Comments TROPONIN-I (test code = TROPI) <0.015 ng/mL 0-0.045 N BASIC METABOLIC [id number] 10:50:00* Test Item Value Reference Range Interpretation Comments SODIUM (test code = NA) 142 mmol/L 136-145 N POTASSIUM (test code = K) 4.5 mmol/L 3.5-5.1 N CHLORIDE (test code = CL) 111.0 mmol/L 98-107 H CARBON DIOXIDE (test code = CO2) mmol/L 21-32 ANION GAP (test code = GAP) 10-20 GLUCOSE (test code = GLU) mg/dL 74-106 BLOOD UREA NITROGEN (test code = BUN) mg/dL 7-18 GLOMERULAR FILTRATION RATE (test code = GFR) mL/min >=60 CREATININE (test code = CREAT) mg/dL 0.55-1.02 BUN/CREATININE RATIO (test code = BUN/CREA) 10-20 CALCIUM (test code = CA) mg/dL 8.5-10.1 HEPATIC FUNCTION [id number] 10:50:00* Test Item Value Reference Range Interpretation Comments TOTAL PROTEIN (test code = PROT) gram/dL 6.4-8.2 ALBUMIN (test code = ALB) g/dL 3.4-5.0 GLOBULIN (test code = GLOB) gram/dL 2.7-4.2 ALBUMIN/GLOBULIN RATIO (test code = A/G) 0.75-1.50 BILIRUBIN TOTAL (test code = BILT) mg/dL 0.0-1.0 BILIRUBIN DIRECT (test code = BILD) mg/dL 0.0-0.20 SGOT/AST (test code = AST) IUnit/L 15-37 SGPT/ALT (test code = ALT) IUnit/L 12-78 ALKALINE PHOSPHATASE TOTAL (test code = ALKP) IUnit/L 45-117 [id number] 10:50:00* Test Item Value Reference Range Interpretation Comments LIPASE (test code = LIP) U/L 73.0-393.0 HCG SERUM [id number] 10:50:00* Test Item Value Reference Range Interpretation Comments HCG SERUM QUAL (test code = HCGQL) NEGATIVE [id number] 10:50:00* Test Item Value Reference Range Interpretation Comments TROPONIN-I (test code = TROPI) ng/mL 0-0.045 CBC W/O [id number] 10:42:00* Test Item Value Reference Range Interpretation Comments WHITE BLOOD CELL (test code = WBC) 9.4 K/mm3 4.5-12.5 N RED BLOOD CELL (test code = RBC) 4.51 mill/mm3 3.7-5.2 N HEMOGLOBIN (test code = HGB) 13.7 gram/dL 11.5-15.5 N HEMATOCRIT (test code = HCT) 40.6 % 36.0-46.0 N MEAN CELL VOLUME (test code = MCV) 90.0 fL 80-98 N MEAN CELL HGB (test code = MCH) 30.4 picogram 27.0-33.0 N MEAN CELL HGB CONCETRATION (test code = MCHC) 33.7 gram/dL 33.0-36. 0 N RED CELL DISTRIBUTION WIDTH (test code = RDW) 13.1 % 11.6-16. 2 N PLATELET COUNT (test code = PLT) 266 K/mm3 150-450 N MEAN PLATELET VOLUME (test code = MPV) 10.8 fL 6.7-11.0 N CBC W/O [id number] 10:36:00* Test Item Value Reference Range Interpretation Comments WHITE BLOOD CELL (test code = WBC) K/mm3 4.5-12.5 RED BLOOD CELL (test code = RBC) mill/mm3 3.7-5.2 HEMOGLOBIN (test code = HGB) 13.7 gram/dL 11.5-15.5 N HEMATOCRIT (test code = HCT) 40.6 % 36.0-46.0 N MEAN CELL VOLUME (test code = MCV) fL 80-98 MEAN CELL HGB (test code = MCH) picogram 27.0-33.0 MEAN CELL HGB CONCETRATION (test code = MCHC) gram/dL 33.0-36. 0 RED CELL DISTRIBUTION WIDTH (test code = RDW) % 11.6-16. 2 PLATELET COUNT (test code = PLT) K/mm3 150-450 MEAN PLATELET VOLUME (test code = MPV) fL 6.7-11.0 [id number] 15:56:00 RUN DATE: 10/10/18 [place] - Lab PAGE 1 RUN TIME: 1556 Specimen Inqui ry RUN USER: INTERFACE PATIENT: ORALIA RIOS ACCT #: [id number] LOC: JustinOBS U #: [id number] AGE/SX: 33/F ROOM: [facility] RE10/03/18REG DR: Calixto Clark MD : [id number] BED: A DIS: 10/06/18 STATUS: DIS Neno TLOC: SPEC #: [id number] RECD: 10/09/18 STATUS: ANA QUIÑONES #: [id number] ROYAL: 10/05/18- [facility] DR: Konstantin Russo MD ENTERED: 10/09/18 SP TYPE: STOMACH OTHR DR: Mc Marrero i, MD ORDERED: GROSS COPIES TO: Konstantin Russo MD [address] [place] [address] Mc Rowan MD [address] [place] [address] PROCEDURES: GROSS (10/10/18-1050 ) TISSUES: 1. DUODENUM, NOS - BX 2. GASTRIC CORPUS - BX CLINICAL HISTORY COLLECTION DATE: 10/05/18 ABDOMINAL PAIN, NAUSEA, VOM ITING FINAL DIAGNOSIS Duodenum, rule out duodenitis, biopsy: D UODENAL MUCOSA, NO PATHOLOGIC ALTERATION NEGATIVE FOR DUODENITIS Gastric biopsy: PATCHY MILD CHRONIC INFLAMMATION, GASTRIC MUCOSA NO INTESTINAL METAPLASIA SEEN NEGATIVE FOR HELICOBACTER PYLORI NE GATIVE FOR MALIGNA[facility]/ D (5) [phone], [phone] CONTINUED ON NEXT PAGE RUN DATE: 10/10/18 [place] - Lab PAGE 2 RUN TIME: 15 56 Specimen Inquiry RUN USER: INTE RFACE SPEC #: [id number] PATIENT: ORALIA RIOS #[id number] (Co ntinued) MACROSCOPIC The first specimen is received in formalin, labeled with the patient's name, and identified as "duodenum rule o ut duodenitis bx". It consists of jolly biopsy tissue measuring 0.7 cm in aggre gate. The second specimen is received in formalin, labeled with the patien t's name, and identified as "gastric bx". It consists of jolly biopsy tissue me asuring 0.35 cm in aggregate. An H E and a Giemsa stain will be prepared. GROSS PERFORMED AT [facility] [address] [place] [address] (p)[phone] MICROSCOPIC All of the stains, including any controls performed, stain appropriately. MICROSCOPIC PERFORMED AT [facility] [address] [place] [address] P) PERFORMING SITE Diagnosis performed at: [facility], [place] [address] [place] [address] Signed SIGNATURE ON FILE Lisbet Chaudhry MD 10/10/18 1556 END OF REPORT BASIC METABOLIC [id number] 11:01:00* Test Item Value Reference Range Interpretation Comments SODIUM (test code = NA) 142 mmol/L 136-145 N POTASSIUM (test code = K) 3.3 mmol/L 3.5-5.1 L CHLORIDE (test code = CL) 108.0 mmol/L 98-107 H CARBON DIOXIDE (test code = CO2) 27.0 mmol/L 21-32 N ANION GAP (test code = GAP) 10.3 10-20 N GLUCOSE (test code = GLU) 119 mg/dL 74-106 H BLOOD UREA NITROGEN (test code = BUN) 3 mg/dL 7-18 L GLOMERULAR FILTRATION RATE (test code = GFR) > 60 mL/min >=60 Estimated GFR by using Modified MDRD formula.Chronic kidney disease is defined as either kidney damageor GFR <60 mL/min/1.73 m2 for >3 months. CREATININE (test code = CREAT) 0.80 mg/dL 0.55-1.02 N Note change in reference range due to change in reagent. BUN/CREATININE RATIO (test code = BUN/CREA) 3.6 10-20 L CALCIUM (test code = CA) 8.2 mg/dL 8.5-10.1 L BASIC METABOLIC [id number] 10:58:00* Test Item Value Reference Range Interpretation Comments SODIUM (test code = NA) 142 mmol/L 136-145 N POTASSIUM (test code = K) 3.3 mmol/L 3.5-5.1 L CHLORIDE (test code = CL) 108.0 mmol/L 98-107 H CARBON DIOXIDE (test code = CO2) mmol/L 21-32 ANION GAP (test code = GAP) 10-20 GLUCOSE (test code = GLU) mg/dL 74-106 BLOOD UREA NITROGEN (test code = BUN) mg/dL 7-18 GLOMERULAR FILTRATION RATE (test code = GFR) mL/min >=60 CREATININE (test code = CREAT) mg/dL 0.55-1.02 BUN/CREATININE RATIO (test code = BUN/CREA) 10-20 CALCIUM (test code = CA) 8.2 mg/dL 8.5-10.1 L CBC W/AUTO [id number] 10:34:00* Test Item Value Reference Range Interpretation Comments WHITE BLOOD CELL (test code = WBC) 5.8 K/mm3 4.5-12.5 N RED BLOOD CELL (test code = RBC) 3.81 mill/mm3 3.7-5.2 N HEMOGLOBIN (test code = HGB) 11.5 gram/dL 11.5-15.5 N HEMATOCRIT (test code = HCT) 34.9 % 36.0-46.0 L MEAN CELL VOLUME (test code = MCV) 91.6 fL 80-98 N MEAN CELL HGB (test code = MCH) 30.2 picogram 27.0-33.0 N MEAN CELL HGB CONCETRATION (test code = MCHC) 33.0 gram/dL 33.0-36. 0 N RED CELL DISTRIBUTION WIDTH (test code = RDW) 13.0 % 11.6-16. 2 N RED CELL DISTRIBUTION WIDTH SD (test code = RDW-SD) 43.5 fL 37 .0-51.0 N PLATELET COUNT (test code = PLT) 190 K/mm3 150-450 N MEAN PLATELET VOLUME (test code = MPV) 10.0 fL 6.7-11.0 N NEUTROPHIL % (test code = NT%) 46.6 % 39.0-69.0 N IMMATURE GRANULOCYTE % (test code = IG%) 0.2 % 0.0-5.0 N LYMPHOCYTE % (test code = LY%) 35.3 % 25.0-55.0 N MONOCYTE % (test code = MO%) 16.7 % 0.0-10.0 H EOSINOPHIL % (test code = EO%) 0.9 % 0.0-5.0 N BASOPHIL % (test code = BA%) 0.3 % 0.0-1.0 N NUCLEATED RBC % (test code = NRBC%) 0.0 % 0-0 N NEUTROPHIL # (test code = NT#) 2.70 K/mm3 1.8-7.7 N IMMATURE GRANULOCYTE # (test code = IG#) 0.01 x10 3/uL 0-0.03 N LYMPHOCYTE # (test code = LY#) 2.05 K/mm3 1.0-5.0 N MONOCYTE # (test code = MO#) 0.97 K/mm3 0-0.8 H EOSINOPHIL # (test code = EO#) 0.05 K/mm3 0.0-0.5 N BASOPHIL # (test code = BA#) 0.02 K/mm3 0.0-0.2 N NUCLEATED RBC # (test code = NRBC#) 0.00 K/mm3 0.0-0.1 N CBC W/AUTO [id number] 10:32:00* Test Item Value Reference Range Interpretation Comments WHITE BLOOD CELL (test code = WBC) K/mm3 4.5-12.5 RED BLOOD CELL (test code = RBC) mill/mm3 3.7-5.2 HEMOGLOBIN (test code = HGB) 11.5 gram/dL 11.5-15.5 N HEMATOCRIT (test code = HCT) % 36.0-46.0 MEAN CELL VOLUME (test code = MCV) fL 80-98 MEAN CELL HGB (test code = MCH) picogram 27.0-33.0 MEAN CELL HGB CONCETRATION (test code = MCHC) gram/dL 33.0-36. 0 RED CELL DISTRIBUTION WIDTH (test code = RDW) % 11.6-16. 2 RED CELL DISTRIBUTION WIDTH SD (test code = RDW-SD) fL 37 .0-51.0 PLATELET COUNT (test code = PLT) K/mm3 150-450 MEAN PLATELET VOLUME (test code = MPV) fL 6.7-11.0 NEUTROPHIL % (test code = NT%) % 39.0-69.0 IMMATURE GRANULOCYTE % (test code = IG%) % 0.0-5.0 LYMPHOCYTE % (test code = LY%) % 25.0-55.0 MONOCYTE % (test code = MO%) % 0.0-10.0 EOSINOPHIL % (test code = EO%) % 0.0-5.0 BASOPHIL % (test code = BA%) % 0.0-1.0 NEUTROPHIL # (test code = NT#) K/mm3 1.8-7.7 LYMPHOCYTE # (test code = LY#) K/mm3 1.0-5.0 MONOCYTE # (test code = MO#) K/mm3 0-0.8 EOSINOPHIL # (test code = EO#) K/mm3 0.0-0.5 BASOPHIL # (test code = BA#) K/mm3 0.0-0.2 URINALYSIS [id number] 18:36:00* Test Item Value Reference Range Interpretation Comments UA COLOR (test code = COLU) YELLOW YELLOW UA APPEARANCE (test code = APPU) HAZY CLEAR A UA GLUCOSE DIPSTICK (test code = DGLUU) NEGATIVE mg/dL NEGATIVE UA BILIRUBIN DIPSTICK (test code = BILU) NEGATIVE NEGATIVE UA KETONE DIPSTICK (test code = KETU) 3+ mg/dL NEGATIVE UA SPECIFIC GRAVITY (test code = SGU) <=1.005 1.001-1.035 UA BLOOD DIPSTICK (test code = MATILDE) TRACE NEGATIVE UA PH DIPSTICK (test code = BERYL) 8.0 5.0-8.0 UA PROTEIN DIPSTICK (test code = PROU) TRACE (15) mg/dL Neg-15 UA UROBILINIOGEN DIPSTICK (test code = URO) 0.2 mg/dL 0.0-0.2 UA NITRITE DIPSTICK (test code = HANSEL) NEGATIVE NEGATIVE UA LEUKOCYTE ESTERASE DIPSTICK (test code = LEUU) NEGATIVE uL NEGA TIVE UA MICROSCOPIC NEEDED? (test code = UAMICRO) YES UA WBC (test code = WBCU) 0-5 per HPF 0-5 UA RBC (test code = RBCU) 0-3 per HPF 0-5 UA EPITHELIAL CELLS (test code = EPIU) Moderate (5-10/hpf) per HPF Few UA BACTERIA (test code = BACU) MODERATE per HPF NONE A Urine Source? Clean CatchDRUGS OF ABUSE SCREEN [id number] 18:36:00* Test Item Value Reference Range Interpretation Comments UR MDMA (test code = MDMAQLU) NEGATIVE NEGATIVE URN COCAINE (test code = COCAURN) NEGATIVE NEGATIVE URN CANNABINOIDS (test code = CANNABURN) POSITIVE <50 ng/mL URN AMPHETAMINE (test code = AMPHETURN) NEGATIVE NEGATIVE URN BARBITURATE (test code = BARBITURN) NEGATIVE NEGATIVE URN BENZODIAZEPINE (test code = BENZOURN) NEGATIVE NEGATIVE URN OPIATES (test code = OPIATURN) POSITIVE NEGATIVE A URN PHENCYCLIDINE (PCP) (test code = PHENCURN) NEGATIVE NEGATIV E URN METHADONE (test code = METHAURN) NEGATIVE <300 ng/mL Urine Source? Clean CatchURINALYSIS [id number] 18:27:00* Test Item Value Reference Range Interpretation Comments UA COLOR (test code = COLU) YELLOW YELLOW UA APPEARANCE (test code = APPU) HAZY CLEAR A UA GLUCOSE DIPSTICK (test code = DGLUU) NEGATIVE mg/dL NEGATIVE UA BILIRUBIN DIPSTICK (test code = BILU) NEGATIVE NEGATIVE UA KETONE DIPSTICK (test code = KETU) 3+ mg/dL NEGATIVE UA SPECIFIC GRAVITY (test code = SGU) <=1.005 1.001-1.035 UA BLOOD DIPSTICK (test code = MATILDE) TRACE NEGATIVE UA PH DIPSTICK (test code = BERYL) 8.0 5.0-8.0 UA PROTEIN DIPSTICK (test code = PROU) TRACE (15) mg/dL Neg-15 UA UROBILINIOGEN DIPSTICK (test code = URO) 0.2 mg/dL 0.0-0.2 UA NITRITE DIPSTICK (test code = HANSEL) NEGATIVE NEGATIVE UA LEUKOCYTE ESTERASE DIPSTICK (test code = LEUU) NEGATIVE uL NEGA TIVE UA MICROSCOPIC NEEDED? (test code = UAMICRO) YES UA WBC (test code = WBCU) 0-5 per HPF 0-5 UA RBC (test code = RBCU) 0-3 per HPF 0-5 UA EPITHELIAL CELLS (test code = EPIU) Moderate (5-10/hpf) per HPF Few UA BACTERIA (test code = BACU) MODERATE per HPF NONE A Urine Source? Clean CatchDRUGS OF ABUSE SCREEN [id number] 18:27:00* Test Item Value Reference Range Interpretation Comments UR MDMA (test code = MDMAQLU) NEGATIVE URN COCAINE (test code = COCAURN) <300 ng/mL URN CANNABINOIDS (test code = CANNABURN) <50 ng/mL URN AMPHETAMINE (test code = AMPHETURN) <1000 ng/mL URN BARBITURATE (test code = BARBITURN) <200 ng/mL URN BENZODIAZEPINE (test code = BENZOURN) <200 ng/mL URN OPIATES (test code = OPIATURN) <300 ng/mL URN PHENCYCLIDINE (PCP) (test code = PHENCURN) <25 ng/ mL URN METHADONE (test code = METHAURN) <300 ng/mL Urine Source? Clean CatchURINALYSIS [id number] 18:23:00* Test Item Value Reference Range Interpretation Comments UA COLOR (test code = COLU) YELLOW YELLOW UA APPEARANCE (test code = APPU) HAZY CLEAR A UA GLUCOSE DIPSTICK (test code = DGLUU) NEGATIVE mg/dL NEGATIVE UA BILIRUBIN DIPSTICK (test code = BILU) NEGATIVE NEGATIVE UA KETONE DIPSTICK (test code = KETU) 3+ mg/dL NEGATIVE UA SPECIFIC GRAVITY (test code = SGU) <=1.005 1.001-1.035 UA BLOOD DIPSTICK (test code = MATILDE) TRACE NEGATIVE UA PH DIPSTICK (test code = BERYL) 8.0 5.0-8.0 UA PROTEIN DIPSTICK (test code = PROU) TRACE (15) mg/dL Neg-15 UA UROBILINIOGEN DIPSTICK (test code = URO) 0.2 mg/dL 0.0-0.2 UA NITRITE DIPSTICK (test code = HANSEL) NEGATIVE NEGATIVE UA LEUKOCYTE ESTERASE DIPSTICK (test code = LEUU) NEGATIVE uL NEGA TIVE UA MICROSCOPIC NEEDED? (test code = UAMICRO) UA WBC (test code = WBCU) per HPF 0-5 UA RBC (test code = RBCU) per HPF 0-5 UA EPITHELIAL CELLS (test code = EPIU) per HPF Few UA BACTERIA (test code = BACU) per HPF NONE Urine Source? Clean CatchDRUGS OF ABUSE SCREEN [id number] 18:23:00* Test Item Value Reference Range Interpretation Comments UR MDMA (test code = MDMAQLU) NEGATIVE URN COCAINE (test code = COCAURN) <300 ng/mL URN CANNABINOIDS (test code = CANNABURN) <50 ng/mL URN AMPHETAMINE (test code = AMPHETURN) <1000 ng/mL URN BARBITURATE (test code = BARBITURN) <200 ng/mL URN BENZODIAZEPINE (test code = BENZOURN) <200 ng/mL URN OPIATES (test code = OPIATURN) <300 ng/mL URN PHENCYCLIDINE (PCP) (test code = PHENCURN) <25 ng/ mL URN METHADONE (test code = METHAURN) <300 ng/mL Urine Source? Clean Catch- CT ABD PELVIS [id number] 17:47:00 Name: ORALIA RIOS [facility] FSED : 1985 Age/S: 33 / F [address] [facility] N Unit #: [id number] Loc: [address] Phys: Albin Duran MD [place], [place] [address] Acct: [id number] Di s Date: Status: REG ER PHONE #: Exam Date: 10/03/2018 8872 FAX #: Reason: Mid abdominal pain EXAMS: CPT CODE: [id number] CT ABD PELVIS W/CONT [id number] EXAM: CT of the abdomen a nd pelvis with contrast; INFORMATION: Midabdominal pain and vomiti ng; TECHNIQUE: CT dose reduction protocol; 5 mm cuts were obtained through the abdomen and pelvis during and after intr avenous infusion of contrast material. FINDINGS: The liver i s of normal size and shape. There is a 12 mm hypodense lesion within the s ubcapsular portion of segment 4A. It fills in on the delayed study and bec omes isodense. Spleen and pancreas are of normal size and shape; they show homogeneous enhancement without focal lesions. No abnormalities of the biliary system. Adrenal glands and kidneys are unremarkable; no evide nce of adenopathy; No evidence of appendicitis or other acute bowel abnormalities. No pelvic mass lesions. No abnormal fluid collections . Scans through the lung bases are clear. IMPRESSI ON: 1. No evidence of acute abdominal or pelvic abnormalities. 2. Small hepatic lesion, most likely representing an incidental hemangioma. I recommend follow-up ultrasound study in 6 months. at 1747 Reported and signed by: Sagar Beatty M.D. CC: Jefferson Calvillo MD; Katja Duran MD Technologist:TECH NOT FOUND CTDI: DL P: Trnscb Date/Time: 10/03/2018 (1747) [email or web address] O rig Print D/T: S: 10/03/2018 (2485) PAGE 1 Signed Re port BASIC METABOLIC [id number] 16:14:00* Test Item Value Reference Range Interpretation Comments SODIUM (test code = NA) 143 mmol/L 128-145 N POTASSIUM (test code = K) 4.1 mmol/L 3.5-5.1 N CHLORIDE (test code = CL) 105.0 mmol/L 98-107 N CARBON DIOXIDE (test code = CO2) 24.7 mmol/L 22-29 N ANION GAP (test code = GAP) 17 mmol/L 10-20 N GLUCOSE (test code = GLU) 150 mg/dL 70-110 H BLOOD UREA NITROGEN (test code = BUN) 12 mg/dL 7-22 N GLOMERULAR FILTRATION RATE (test code = GFR) > 60 mL/min >=60 Estimated GFR by using Modified MDRD formula.Chronic kidney disease is defined as either kidney damageor GFR <60 mL/min/1.73 m2 for >3 months. CREATININE (test code = CREAT) 0.76 mg/dL 0.55-1.3 N BUN/CREATININE RATIO (test code = BUN/CREA) 15.8 10-20 N CALCIUM (test code = CA) 9.2 mg/dL 8.0-10.5 N HEPATIC FUNCTION [id number] 16:14:00* Test Item Value Reference Range Interpretation Comments TOTAL PROTEIN (test code = PROT) 8.6 gram/dL 6.1-7.8 H ALBUMIN (test code = ALB) 4.2 g/dL 3.3-4.4 N GLOBULIN (test code = GLOB) 4.4 G/DL 1-10 N ALBUMIN/GLOBULIN RATIO (test code = A/G) 1.0 0.75-1.50 N BILIRUBIN TOTAL (test code = BILT) 0.50 mg/dL 0.2-1.2 N BILIRUBIN DIRECT (test code = BILD) 0.10 mg/dL 0.0-0.30 N SGOT/AST (test code = AST) 16 U/L 10-39 N SGPT/ALT (test code = ALT) 15 U/L 10-69 N ALKALINE PHOSPHATASE TOTAL (test code = ALKP) 66 U/L 50-139 N [id number] 16:14:00* Test Item Value Reference Range Interpretation Comments LIPASE (test code = LIP) 45 Unit/L 144-286 L HCG SERUM [id number] 16:14:00* Test Item Value Reference Range Interpretation Comments HCG SERUM QUAL (test code = HCGQL) NEGATIVE NEGATIVE This HCGQL test is NOT applicable for MALE patients.Check with nurse about probable order error.If Tumor Marker Test needed, nurse should order test "HCGTU"(Test #[id number]) BASIC METABOLIC [id number] 16:13:00* Test Item Value Reference Range Interpretation Comments SODIUM (test code = NA) 143 mmol/L 128-145 N POTASSIUM (test code = K) 4.1 mmol/L 3.5-5.1 N CHLORIDE (test code = CL) 105.0 mmol/L 98-107 N CARBON DIOXIDE (test code = CO2) 24.7 mmol/L 22-29 N ANION GAP (test code = GAP) 17 mmol/L 10-20 N GLUCOSE (test code = GLU) 150 mg/dL 70-110 H BLOOD UREA NITROGEN (test code = BUN) 12 mg/dL 7-22 N GLOMERULAR FILTRATION RATE (test code = GFR) > 60 mL/min >=60 Estimated GFR by using Modified MDRD formula.Chronic kidney disease is defined as either kidney damageor GFR <60 mL/min/1.73 m2 for >3 months. CREATININE (test code = CREAT) 0.76 mg/dL 0.55-1.3 N BUN/CREATININE RATIO (test code = BUN/CREA) 15.8 10-20 N CALCIUM (test code = CA) 9.2 mg/dL 8.0-10.5 N HEPATIC FUNCTION [id number] 16:13:00* Test Item Value Reference Range Interpretation Comments TOTAL PROTEIN (test code = PROT) 8.6 gram/dL 6.1-7.8 H ALBUMIN (test code = ALB) 4.2 g/dL 3.3-4.4 N GLOBULIN (test code = GLOB) 4.4 G/DL 1-10 N ALBUMIN/GLOBULIN RATIO (test code = A/G) 1.0 0.75-1.50 N BILIRUBIN TOTAL (test code = BILT) 0.50 mg/dL 0.2-1.2 N BILIRUBIN DIRECT (test code = BILD) 0.10 mg/dL 0.0-0.30 N SGOT/AST (test code = AST) 16 U/L 10-39 N SGPT/ALT (test code = ALT) 15 U/L 10-69 N ALKALINE PHOSPHATASE TOTAL (test code = ALKP) 66 U/L 50-139 N [id number] 16:13:00* Test Item Value Reference Range Interpretation Comments LIPASE (test code = LIP) 45 Unit/L 144-286 L HCG SERUM [id number] 16:13:00* Test Item Value Reference Range Interpretation Comments HCG SERUM QUAL (test code = HCGQL) NEGATIVE C REACTIVE [id number] 16:10:00* Test Item Value Reference Range Interpretation Comments C REACTIVE PROTEIN (test code = CRP) 1.8 0.00-5.00 N BASIC METABOLIC [id number] 16:08:00* Test Item Value Reference Range Interpretation Comments SODIUM (test code = NA) 143 mmol/L 128-145 N POTASSIUM (test code = K) 4.1 mmol/L 3.5-5.1 N CHLORIDE (test code = CL) 105.0 mmol/L 98-107 N CARBON DIOXIDE (test code = CO2) 24.7 mmol/L 22-29 N ANION GAP (test code = GAP) 17 mmol/L 10-20 N GLUCOSE (test code = GLU) 150 mg/dL 70-110 H BLOOD UREA NITROGEN (test code = BUN) 12 mg/dL 7-22 N GLOMERULAR FILTRATION RATE (test code = GFR) > 60 mL/min >=60 Estimated GFR by using Modified MDRD formula.Chronic kidney disease is defined as either kidney damageor GFR <60 mL/min/1.73 m2 for >3 months. CREATININE (test code = CREAT) 0.76 mg/dL 0.55-1.3 N BUN/CREATININE RATIO (test code = BUN/CREA) 15.8 10-20 N CALCIUM (test code = CA) 9.2 mg/dL 8.0-10.5 N HEPATIC FUNCTION [id number] 16:08:00* Test Item Value Reference Range Interpretation Comments TOTAL PROTEIN (test code = PROT) gram/dL 6.4-8.2 ALBUMIN (test code = ALB) g/dL 3.4-5.0 GLOBULIN (test code = GLOB) G/DL 1-10 ALBUMIN/GLOBULIN RATIO (test code = A/G) 0.75-1.50 BILIRUBIN TOTAL (test code = BILT) mg/dL 0.0-1.0 BILIRUBIN DIRECT (test code = BILD) mg/dL 0.0-0.20 SGOT/AST (test code = AST) IUnit/L 15-37 SGPT/ALT (test code = ALT) IUnit/L 12-78 ALKALINE PHOSPHATASE TOTAL (test code = ALKP) IUnit/L 45-117 [id number] 16:08:00* Test Item Value Reference Range Interpretation Comments LIPASE (test code = LIP) U/L 73.0-393.0 HCG SERUM [id number] 16:08:00* Test Item Value Reference Range Interpretation Comments HCG SERUM QUAL (test code = HCGQL) NEGATIVE CBC W/O [id number] 15:58:00* Test Item Value Reference Range Interpretation Comments WHITE BLOOD CELL (test code = WBC) 9.2 K/mm3 4.5-12.5 N RED BLOOD CELL (test code = RBC) 4.58 mill/mm3 3.7-5.2 N HEMOGLOBIN (test code = HGB) 14.0 gram/dL 11.5-15.5 N HEMATOCRIT (test code = HCT) 42.4 % 36.0-46.0 N MEAN CELL VOLUME (test code = MCV) 92.6 fL 80-98 N MEAN CELL HGB (test code = MCH) 30.6 picogram 27.0-33.0 N MEAN CELL HGB CONCETRATION (test code = MCHC) 33.0 gram/dL 33.0-36. 0 N RED CELL DISTRIBUTION WIDTH (test code = RDW) 13.2 % 11.6-16. 2 N RED CELL DISTRIBUTION WIDTH SD (test code = RDW-SD) 45.1 fL 37 .0-51.0 N PLATELET COUNT (test code = PLT) 291 K/mm3 150-450 N MEAN PLATELET VOLUME (test code = MPV) 10.1 fL 6.7-11.0 N
--- OUTSIDE RECORDS SUMMARY | 2019-09-06 06:12 | XMS REPORT | Continuity of Care Document ---
Author Author [facility] t Organization [facility] Address [address] [place] [address] Phone Unavailable Care Team Providers Care National Sales Associate Name Role Phone Jerome ANGELA PCP RUTHY FRITZ Attphys Unavailable Zach SAHU Attphys Unavailable Payers Payer Name Policy Type Policy Number Effective Date Expiration Date Zach fulton [facility] [id number] 2019 00:00:00 [facility] Problems Condition Name Condition Details Condition Category Status Onset Date Resolution Date Last Treatment Date Treating Clinician Comments Source Intractable abdominal pain Problem Active [facility] Pyelonephritis Problem Active [facility] Allergies, Adverse Reactions, Alerts Allergy Name Allergy Type Status Severity Reaction(s) Onset Date Inacti ve Date Treating Clinician Comments Source No Known Allergies DA Active U 2018-12-12 00:00:00 [facility] No Known Allergies DA Active U 2018-11-12 00:00:00 [facility] No Known Allergies DA Active U 2018-10-03 00:00:00 [facility] Social History Social Habit Start Date Stop Date Quantity Comments Source Sex Assigned At 1985 00:00:00 1985 00:00:00 Female [facility] Medications Ordered Medication Name Filled Medication Name Start Date Stop Da te Current Medication? Ordering Clinician Indication Dosage Frequency Signature (SIG) Comments Components Source Ondansetron Hcl (Zofran*) 4 Mg TABLET Ondansetron Hcl (Zofra n*) 4 Mg TABLET 2019-07-26 16:44:00 Yes 4 Every 6 Hours as n eeded for Nausea [facility] Hydrocodone Bit/Acetaminophen ([place] 5-325 Tablet) 1 E ach TABLET Hydrocodone Bit/Acetaminophen ([place] 5-325 Tablet) 1 Each TABLET 2019-07-26 16:44:00 2019-08-10 00:00:00 No 1 Every 6 Ho urs as needed for Moderate Pain (4-6) [facility] Hcl Dicyclomine Hcl Yes 20 Daily [facility] Escitalopram Oxalate Escitalopram Oxalate Yes 20 Daily [facility] Famotidine (Pepcid) 20 Mg TABLET Famotidine (Pepcid) 20 Mg TABLET Yes 40 Daily [facility] Metoclopramide Hcl (Reglan) 5 Mg TABLET Metoclopramide Hcl ( Reglan) 5 Mg TABLET Yes 5 Twice A Day as needed for Nause a And Vomiting [facility] Zolpidem Tartrate (Ambien) 10 Mg TABLET Zolpidem Tartrate (A mbien) 10 Mg TABLET Yes 10 Bedtime as needed for Sleep [facility] Ciprofloxacin Hcl (Cipro) 500 Mg TABLET Ciprofloxacin Hcl (C ipro) 500 Mg TABLET 2019-08-10 00:00:00 No 250 Twice A Day [facility] Naproxen Naproxen 2019-08-10 00:00:00 No 500 Twice A Day [facility] Vital Signs Vital Name Observation Time Observation Value Comments Source Body Temperature 2019-08-13 09:27:00 98.1 [degF] [facility] BMI (Body Mass Index) 2019-08-10 16:15:00 28.2 kg/m2 [facility] Weight 2019-08-10 11:37:00 180 [lb_av] [facility] Body Temperature 2019-07-28 11:15:00 98.8 [degF] [facility] BMI (Body Mass Index) 2019-07-27 00:45:00 28.2 kg/m2 [facility] Weight 2019-07-26 12:16:00 180 [lb_av] [facility] Procedures This patient has no known procedures. Plan of Care Planned Activity Planned Date Details Comments Source Instructions Kidney Stones [facility] Encounters Start Date/Time End Date/Time Encounter Type Admission Type [facility] Care Department Encounter ID Source 2019-08-11 12:36:00 2019-08-13 10:53:00 Discharged Inpatient 1 RUTHY FRIZT [facility] [id number] [facility] 2019-07-27 09:27:00 2019-07-28 11:20:00 Discharged Inpatient 1 MT SAHU [facility] [id number] [facility] Results Test Description Test Time Test Comments [...] coverComment: Physician questions regarding [employer] contact [employer] at: [phone].Please note: [employer] report will follow via computer, mail or advertising production manager delivery.Disclaimer: This test was developed and its performance characteristics determined by [employer]. It has not been cleared or approved by the Food and Drug Administration. Test performed at: [facility] [facility] [address] [place] [address] [place] [address] SOURCE OF STONE (test code = STONESRC) SEE REPORT STONE ANALYSIS COMMENT (test code = STONECOM) SEE REPORT NIDUS STONE ANALYSIS (test code = STONE) SEE REPORT WEIGHT OF STONE (test code = STONEWT) SEE REPORT grams Test performed at: [address] [address] SPECIMEN COMMENTS: LEFT URETERAL STONESPECIMEN COMMENTS: COLLECTED DURING SURGER YSerum or plasma sodium measurement (moles/volume)2019-08-12 05:45:00* Test Item Value Reference Range Interpretation Comments Sodium Level (test code = 2951-2) 141 136-145 [facility] potassium measurement (moles/volume)2019-08-12 05:45:00* Test Item Value Reference Range Interpretation Comments Potassium Level (test code = 2823-3) 3.7 3.5-5.1 [facility] plasma chloride measurement (moles/volume)2019-08-12 05:45:00* Test Item Value Reference Range Interpretation Comments Chloride Level (test code = 2075-0) 106 98-107 [facility] or plasma carbon dioxide, total measurement (moles/volume)2019-08-12 05:45:00* Test Item Value Reference Range Interpretation Comments Carbon Dioxide Level (test code = 2028-9) 28 22-29 [facility] or plasma anion btz4558-98-49 05:45:00* Test Item Value Reference Range Interpretation Comments Anion Gap (test code = 72066-8) 10.7 8-16 [facility] plasma urea nitrogen measurement (mass/volume)2019-08-12 05:45:00* Test Item Value Reference Range Interpretation Comments Blood Urea Nitrogen (test code = 3094-0) < 5 7-26 [facility] plasma creatinine measurement (mass/volume)2019-08-12 05:45:00* Test Item Value Reference Range Interpretation Comments Creatinine (test code = 2160-0) 0.81 0.57-1.11 [facility] or plasma urea nitrogen/creatinine mass vroiw6111-50-74 05:45:00* Test Item Value Reference Range Interpretation Comments BUN/Creatinine Ratio (test code = 3097-3) 6 6-25 [facility] HospitalEstimated glomerular filtration rate (GFR) tsndvgtqzjhia6265-63-01 05:45:00* Test Item Value Reference Range Interpretation Comments Estimat Glomerular Filtration Rate (test code = 977066464) > 60 >60 Ranges were taken from the National Kidney Disease Education Program and the [employer] [place] literature.Reference ranges:60 or greater: Wkqzmf49-97 ( for 3 consecutive months): Chronic kidney disease 15 or less: Kidney failureEl [facility] Children's HospitalGlucose gcmnyegaorq4986-35-25 05:45:00* Test Item Value Reference Range Interpretation Comments Glucose Level (test code = JML6183) 85 74-118 [facility] or plasma calcium measurement (mass/volume)2019-08-12 05:45:00* Test Item Value Reference Range Interpretation Comments Calcium Level (test code = 50696-3) 8.7 8.4-10.2 [facility] or plasma trough vancomycin level at trough (mass/volume)2019-08-11 13:34:00* Test Item Value Reference Range Interpretation Comments Vancomycin Level Trough (test code = 4092-3) 6.3 5.0-10.0 [facility] HospitalUrine color orflpdskudmmh8081-73-56 13:10:00* Test Item Value Reference Range Interpretation Comments Urine Color (test code = 5778-6) PINK YELLOW [facility] HospitalUrine hbuozmu2706-79-82 13:10:00* Test Item Value Reference Range Interpretation Comments Urine Clarity (test code = 17940-6) CLEAR CLEAR [facility] gravity of Urine by Test strip 2019-08-11 13:10:00* Test Item Value Reference Range Interpretation Comments Urine Specific [place] (test code = 5811-5) 1.025 1.010-1.02 5 [facility] Hospital[facility] pH measurement by automated test fhokc0651-71-16 13:10:00* Test Item Value Reference Range Interpretation Comments Urine pH (test code = 86970-8) 7 5-7 [facility] HospitalU[facility] leukocyte esterase detection by xhjxsfqy8932-05-30 13:10:00* Test Item Value Reference Range Interpretation Comments Urine Leukocyte Esterase (test code = 5799-2) NEGATIVE NEGATIVE [facility] HospitalUrine nitrite rqesurcsr4987-13-73 13:10:00* Test Item Value Reference Range Interpretation Comments Urine Nitrite (test code = 49280-0) NEGATIVE NEGATIVE [facility] HospitalU[facility] protein measurement by test strip (mass/volume)2019-08-11 13:10:00* Test Item Value Reference Range Interpretation Comments Urine Protein (test code = 5804-0) NEGATIVE NEGATIVE [facility] HospitalUrine glucose orgmxsfan9954-03-50 13:10:00* Test Item Value Reference Range Interpretation Comments Urine Glucose (UA) (test code = 2349-9) NEGATIVE NEGATIVE [facility] HospitalUrine ketones detection by automated test oucfx2947-66-71 13:10:00* Test Item Value Reference Range Interpretation Comments Urine Ketones (test code = 34904-0) NEGATIVE NEGATIVE [facility] HospitalUrine urobilinogen measurement by test strip (mass/volume)2019-08-11 13:10:00* Test Item Value Reference Range Interpretation Comments Urine Urobilinogen (test code = 40812-1) 0.2 0.2-1 [facility] HospitalU[facility] total bilirubin measurement (mass/volume)2019-08-11 13:10:00* Test Item Value Reference Range Interpretation Comments Urine Bilirubin (test code = 1978-6) NEGATIVE NEGATIVE [facility] HospitalUrine erythrocytes vyayhfxpu8126-50-97 13:10:00* Test Item Value Reference Range Interpretation Comments Urine Blood (test code = 40079-5) LARGE NEGATIVE [facility] HospitalAutomated urine sediment leukocyte count by microscopy (number/high power field)2019-08-11 13:10:00* Test Item Value Reference Range Interpretation Comments Urine WBC (test code = 5821-4) >50 0-5 [facility] HospitalErythrocytes detection in urine sediment by light rphmvnjiwf7516-66-57 13:10:00* Test Item Value Reference Range Interpretation Comments Urine RBC (test code = 94882-0) >50 0-5 [facility] HospitalBacteria detection in urine sediment by light njsxyiysbk4721-78-24 13:10:00* Test Item Value Reference Range Interpretation Comments Urine Bacteria (test code = 76393-7) MODERATE NONE [facility] HospitalEpithelial cells detection in urine sediment by light mruiimztax4908-92-86 13:10:00* Test Item Value Reference Range Interpretation Comments Urine Epithelial Cells (test code = 73766-1) FEW NONE [facility] HospitalBlood leukocytes automated count (number/volume)2019-08-11 04:50:00* Test Item Value Reference Range Interpretation Comments White Blood Count (test code = 6690-2) 5.92 4.8-10.8 [facility] HospitalBlood erythrocytes automated count (number/volume)2019-08-11 04:50:00* Test Item Value Reference Range Interpretation Comments Red Blood Count (test code = 789-8) 3.43 3.6-5.1 [facility] HospitalBlood hemoglobin measurement (moles/volume)2019-08-11 04:50:00* Test Item Value Reference Range Interpretation Comments Hemoglobin (test code = 21821-9) 10.5 12.0-16.0 [facility] HospitalAutomated blood hematocrit (volume fraction)2019-08-11 04:50:00* Test Item Value Reference Range Interpretation Comments Hematocrit (test code = 4544-3) 32.4 34.2-44.1 [facility] HospitalAutomated erythrocyte mean corpuscular klmqjr6026-00-56 04:50:00* Test Item Value Reference Range Interpretation Comments Mean Corpuscular Volume (test code = 787-2) 94.5 81-99 [facility] HospitalAutomated erythrocyte mean corpuscular hemoglobin (mass per erythrocyte)2019-08-11 04:50:00* Test Item Value Reference Range Interpretation Comments Mean Corpuscular Hemoglobin (test code = 785-6) 30.6 28-32 [facility] HospitalAutomated erythrocyte mean corpuscular hemoglobin concentration measurement (mass/volume)2019-08-11 04:50:00* Test Item Value Reference Range Interpretation Comments Mean Corpuscular Hemoglobin Concent (test code = 786-4) 32.4 31-35 [facility] HospitalRDW YjgRv-Cqo5749-68-05 04:50:00* Test Item Value Reference Range Interpretation Comments Red Cell Distribution Width (test code = 54784-2) 13.8 11.7 -14.4 [facility] HospitalAutomated blood platelet count (count/volume)2019-08-11 04:50:00* Test Item Value Reference Range Interpretation Comments Platelet Count (test code = 777-3) 195 140-360 [facility] HospitalAutomated blood segmented neutrophil count as percentage of total jqkqsuqtts3292-62-31 04:50:00* Test Item Value Reference Range Interpretation Comments Neutrophils (%) (Auto) (test code = 65800-7) 46.6 38.7-80.0 [facility] HospitalAutomated blood lymphocyte count as percentage ot total mjbdyolxxb4781-89-64 04:50:00* Test Item Value Reference Range Interpretation Comments Lymphocytes (%) (Auto) (test code = 736-9) 43.6 18.0-39.1 [facility] HospitalAutomated blood monocyte count as percentage of total jjfpuryhhk8698-81-50 04:50:00* Test Item Value Reference Range Interpretation Comments Monocytes (%) (Auto) (test code = 5905-5) 8.3 4.4-11.3 [facility] HospitalAutomated blood eosinophil count as percentage of total icrvbstuco9991-33-01 04:50:00* Test Item Value Reference Range Interpretation Comments Eosinophils (%) (Auto) (test code = 713-8) 0.5 0.0-6.0 [facility] HospitalAutomated blood basophil count as percentage of total fptmvssnms4135-74-56 04:50:00* Test Item Value Reference Range Interpretation Comments Basophils (%) (Auto) (test code = 706-2) 0.7 0.0-1.0 [facility] HospitalFluoroscopic procedure less than one hour lvtrzblk4429-78-36 04:50:00* Test Item Value Reference Range Interpretation Comments IM GRANULOCYTES % (test code = IM GRANULOCYTES %) 0.3 0.0- 1.0 [facility] HospitalAutomated blood neutrophil count 2019-08-11 04:50:00* Test Item Value Reference Range Interpretation Comments Neutrophils # (Auto) (test code = 751-8) 2.8 2.1-6.9 [facility] HospitalBlood lymphocytes count (number/volume) 2019-08-11 04:50:00* Test Item Value Reference Range Interpretation Comments Lymphocytes # (Auto) (test code = 51617-6) 2.6 1.0-3.2 [facility] HospitalBlood monocytes automated count (number/volume)2019-08-11 04:50:00* Test Item Value Reference Range Interpretation Comments Monocytes # (Auto) (test code = 742-7) 0.5 0.2-0.8 [facility] HospitalAutomated blood eosinophil count 2019-08-11 04:50:00* Test Item Value Reference Range Interpretation Comments Eosinophils # (Auto) (test code = 711-2) 0.0 0.0-0.4 [facility] HospitalAutomated blood basophil count (count/volume)2019-08-11 04:50:00* Test Item Value Reference Range Interpretation Comments Basophils # (Auto) (test code = 704-7) 0.0 0.0-0.1 [facility] HospitalFluoroscopic procedure less than one hour tshlsiya2127-55-40 04:50:00* Test Item Value Reference Range Interpretation Comments Absolute Immature Granulocyte (auto (caroline t code = Absolute Immature Granulocyte (auto) 0.02 0-0.1 [facility] or plasma total bilirubin measurement (mass/volume)2019-08-11 04:50:00* Test Item Value Reference Range Interpretation Comments Total Bilirubin (test code = 1975-2) 0.4 0.2-1.2 [facility] HospitalFluoroscopic procedure less than one hour xtahixss8607-24-68 04:50:00* Test Item Value Reference Range Interpretation Comments Aspartate Amino Transf (AST/SGOT) (test code = Aspartate Amino Transf (AST/SGOT)) 12 5-34 [facility] or plasma alanine aminotransferase measurement (enzymatic activity/volume)2019-08-11 04:50:00* Test Item Value Reference Range Interpretation Comments Alanine Aminotransferase (ALT/SGPT) (test code = 1742-6) 7 0-55 [facility] or plasma protein measurement (mass/volume)2019-08-11 04:50:00* Test Item Value Reference Range Interpretation Comments Total Protein (test code = 2885-2) 5.6 6.5-8.1 [facility] or plasma albumin measurement (mass/volume)2019-08-11 04:50:00* Test Item Value Reference Range Interpretation Comments Albumin (test code = 1751-7) 3.1 3.5-5.0 [facility] HospitalPlasma globulin measurement (mass/volume) 2019-08-11 04:50:00* Test Item Value Reference Range Interpretation Comments Globulin (test code = 40059-6) 2.5 2.3-3.5 [facility] or plasma albumin/globulin mass robnz8630-71-65 04:50:00* Test Item Value Reference Range Interpretation Comments Albumin/Globulin Ratio (test code = 1759-0) 1.2 0.8-2.0 [facility] or plasma alkaline phosphatase measurement (enzymatic activity/volume)2019-08-11 04:50:00* Test Item Value Reference Range Interpretation Comments Alkaline Phosphatase (test code = 6768-6) 45 40-150 [facility] HospitalCT ABD/PEL WO OWAMMJFA-JPYC7845-68-04 12:55:00 [facility] [address] [place] [address] Patient Name: ORALIA RIOS MR #: [id number] : 1985 Age/Sex: 33/F Req #: [id number] Adm Physician: Ordered by: RUTHY FRITZ MD Report #: [id number] Location: [facility] Room/Bed: Procedure: [id number] HOPD/CT ABD/PEL WO CONTRAST-HOPD Exam Date: 08/10/19 Exam T emily: 1235 REPORT STATUS: Signed EXAM: CT Abdomen and Pelvis WITHOUT contrast INDICATION: adbominal apin [id number] 1235 N COMPARISON: KUB 07/26/2019 TECHNIQUE: Ab [...] Interpretation Comments Blood Culture (test code = 83808712) NO GROWTH AFTER 48 HOURS [facility] ABD PELVIS W/ZMGU3446-09-59 20:39:00 Name: ORALIA RIOS [facility] : 1985 Age/S: 33 / F [address] [facility]: [id number] Loc: [facility] [place] [address] Phys: Harley Dill NP Acct: [id number] Di s Date: Status: REG ER PHONE #: [phone] Exam Date: 08/09/20191949 FAX #: Reason: diffuse abd pain, vomiting EXAMS: CPT CODE: [id number] CT ABD PELVIS W/CONT 42248 REASON FOR EXAM: diffuse abd pain, vomiting [...] 1 Signed Report (CONTINUED) Name: ORALIA RIOS [facility] : 1985 Age/S: 33 / F [address] [facility] Unit #: [id number] Loc: [place] [address] Phys: Harley Dill NP Acct: [id number] Di s Date: Status: REG ER PHONE #: [phone] Exam Date: 08/09/20191949 FAX #: [phone] Reason: diffuse abd pain, vomiting EXAMS: CPT CODE: [id number] CT ABD PELVIS W/CONT 63819 <Continued> IMPRESSION: No acute intra-abdominal process. Sequela [...] 020 (2041) PAGE 2 Signed Report URINALYSIS [id number] 20:13:00* Test Item Value Reference Range Interpretation [...] per LPF NONE-FEW Urine Source? Clean CatchURINALYSIS [id number] 20:03:00* Test Item Value Reference Range Interpretation [...] HPF NONE Urine Source? Clean CatchBASIC METABOLIC [id number] 19:18:00* Test Item Value Reference Range Interpretation [...] CA) 9.6 mg/dL 8.5-10.1 N HEPATIC FUNCTION [id number] 19:18:00* Test Item Value Reference Range Interpretation [...] reference range due to change in reagent. [id number] 19:18:00* Test Item Value Reference Range Interpretation Comments LIPASE (test code = LIP) 78 U/L 73.0-393.0 N HCG SERUM [id number] 19:18:00* Test Item Value Reference Range Interpretation Comments HCG SERUM QUAL (test code = HCGQL) NEGATIVE NEGATIVE This HCGQL test is NOT applicable for MALE patients.Check with nurse about probable order error.If Tumor Marker Test needed, nurse should order test "HCGTU"(Test #550.72065) BASIC METABOLIC [id number] 19:16:00* Test Item Value Reference Range Interpretation [...] CA) 9.6 mg/dL 8.5-10.1 N HEPATIC FUNCTION [id number] 19:16:00* Test Item Value Reference Range Interpretation [...] reference range due to change in reagent. [id number] 19:16:00* Test Item Value Reference Range Interpretation Comments LIPASE (test code = LIP) 78 U/L 73.0-393.0 N HCG SERUM [id number] 19:16:00* Test Item Value Reference Range Interpretation Comments HCG SERUM QUAL (test code = HCGQL) NEGATIVE BASIC METABOLIC [id number] 19:08:00* Test Item Value Reference Range Interpretation [...] code = CA) mg/dL 8.5-10.1 HEPATIC FUNCTION [id number] 19:08:00* Test Item Value Reference Range Interpretation [...] TOTAL (test code = ALKP) IUnit/L 45-117 [id number] 19:08:00* Test Item Value Reference Range Interpretation Comments LIPASE (test code = LIP) U/L 73.0-393.0 HCG SERUM [id number] 19:08:00* Test Item Value Reference Range Interpretation Comments HCG SERUM QUAL (test code = HCGQL) NEGATIVE CBC W/O [id number] 18:51:00* Test Item Value Reference Range Interpretation [...] Count (test code = 6690-2) 6.72 4.8-10.8 [facility]Blood erythrocytes automated count (number/volume)2019-07-27 05:45:00* Test Item Value Reference Range Interpretation Comments Red Blood Count (test code = 789-8) 3.79 3.6-5.1 [facility] HospitalBlood hemoglobin measurement (moles/volume)2019-07-27 05:45:00* Test Item Value Reference Range Interpretation Comments Hemoglobin (test code = 52162-6) 11.8 12.0-16.0 [facility] HospitalAutomated blood hematocrit (volume fraction)2019-07-27 05:45:00* Test Item Value Reference Range Interpretation Comments Hematocrit (test code = 4544-3) 36.2 34.2-44.1 [facility] HospitalAutomated erythrocyte mean corpuscular gtegqs0256-05-89 05:45:00* Test Item Value Reference Range Interpretation Comments Mean Corpuscular Volume (test code = 787-2) 95.5 81-99 [facility] HospitalAutomated erythrocyte mean corpuscular hemoglobin (mass per erythrocyte)2019-07-27 05:45:00* Test Item Value Reference Range Interpretation Comments Mean Corpuscular Hemoglobin (test code = 785-6) 31.1 28-32 [facility] HospitalAutomated erythrocyte mean corpuscular hemoglobin concentration measurement (mass/volume)2019-07-27 05:45:00* Test Item Value Reference Range Interpretation Comments Mean Corpuscular Hemoglobin Concent (test code = 786-4) 32.6 31-35 [facility] HospitalRDW YmhEm-Hwq5018-35-20 05:45:00* Test Item Value Reference Range Interpretation Comments Red Cell Distribution Width (test code = 43523-3) 13.8 11.7 -14.4 [facility] HospitalAutomated blood platelet count (count/volume)2019-07-27 05:45:00* Test Item Value Reference Range Interpretation Comments Platelet Count (test code = 777-3) 188 140-360 [facility] HospitalAutomated blood segmented neutrophil count as percentage of total dlbrceauwl4869-67-67 05:45:00* Test Item Value Reference Range Interpretation Comments Neutrophils (%) (Auto) (test code = 67936-6) 42.4 38.7-80.0 [facility] HospitalAutomated blood lymphocyte count as percentage ot total xzcceqjvov1290-32-62 05:45:00* Test Item Value Reference Range Interpretation Comments Lymphocytes (%) (Auto) (test code = 736-9) 45.5 18.0-39.1 [facility] HospitalAutomated blood monocyte count as percentage of total doibiamlfk4012-90-82 05:45:00* Test Item Value Reference Range Interpretation Comments Monocytes (%) (Auto) (test code = 5905-5) 11.0 4.4-11.3 [facility] HospitalAutomated blood eosinophil count as percentage of total dtpybvyylr7378-67-98 05:45:00* Test Item Value Reference Range Interpretation Comments Eosinophils (%) (Auto) (test code = 713-8) 0.6 0.0-6.0 [facility] HospitalAutomated blood basophil count as percentage of total rwopukwemg8874-35-02 05:45:00* Test Item Value Reference Range Interpretation Comments Basophils (%) (Auto) (test code = 706-2) 0.4 0.0-1.0 [facility] HospitalFluoroscopic procedure less than one hour nlekjbva6381-69-98 05:45:00* Test Item Value Reference Range Interpretation Comments IM GRANULOCYTES % (test code = IM GRANULOCYTES %) 0.1 0.0- 1.0 [facility] HospitalAutomated blood neutrophil count 2019-07-27 05:45:00* Test Item Value Reference Range Interpretation Comments Neutrophils # (Auto) (test code = 751-8) 2.8 2.1-6.9 [facility] lymphocytes count (number/volume) 2019-07-27 05:45:00* Test Item Value Reference Range Interpretation Comments Lymphocytes # (Auto) (test code = 55177-0) 3.1 1.0-3.2 [facility]Blood monocytes automated count (number/volume)2019-07-27 05:45:00* Test Item Value Reference Range Interpretation Comments Monocytes # (Auto) (test code = 742-7) 0.7 0.2-0.8 [facility] HospitalAutomated blood eosinophil count 2019-07-27 05:45:00* Test Item Value Reference Range Interpretation Comments Eosinophils # (Auto) (test code = 711-2) 0.0 0.0-0.4 [facility] HospitalAutomated blood basophil count (count/volume)2019-07-27 05:45:00* Test Item Value Reference Range Interpretation Comments Basophils # (Auto) (test code = 704-7) 0.0 0.0-0.1 [facility] HospitalFluoroscopic procedure less than one hour jjfpojct6048-20-84 05:45:00* Test Item Value Reference Range Interpretation Comments Absolute Immature Granulocyte (auto (caroline t code = Absolute Immature Granulocyte (auto) 0.01 0-0.1 [facility] sodium measurement (moles/volume)2019-07-27 05:45:00* Test Item Value Reference Range Interpretation Comments Sodium Level (test code = 2951-2) 141 136-145 [facility] or plasma potassium measurement (moles/volume)2019-07-27 05:45:00* Test Item Value Reference Range Interpretation Comments Potassium Level (test code = 2823-3) 3.9 3.5-5.1 [facility] or plasma chloride measurement (moles/volume)2019-07-27 05:45:00* Test Item Value Reference Range Interpretation Comments Chloride Level (test code = 2075-0) 108 98-107 [facility] or plasma carbon dioxide, total measurement (moles/volume)2019-07-27 05:45:00* Test Item Value Reference Range Interpretation Comments Carbon Dioxide Level (test code = 2028-9) 27 22-29 [facility] or plasma anion msh3845-21-83 05:45:00* Test Item Value Reference Range Interpretation Comments Anion Gap (test code = 77924-0) 9.9 8-16 [facility] or plasma urea nitrogen measurement (mass/volume)2019-07-27 05:45:00* Test Item Value Reference Range Interpretation Comments Blood Urea Nitrogen (test code = 3094-0) 5 7-26 [facility] or plasma creatinine measurement (mass/volume)2019-07-27 05:45:00* Test Item Value Reference Range Interpretation Comments Creatinine (test code = 2160-0) 0.78 0.57-1.11 [facility] or plasma urea nitrogen/creatinine mass rmanm7394-30-42 05:45:00* Test Item Value Reference Range Interpretation Comments BUN/Creatinine Ratio (test code = 3097-3) 6 6-25 [facility] HospitalEstimated glomerular filtration rate (GFR) knotpdcmtnlbg7400-79-60 05:45:00* Test Item Value Reference Range Interpretation Comments Estimat Glomerular Filtration Rate (test code = 769940766) > 60 >60 Ranges were taken from the National Kidney Disease Education Program and the [employer] community health[employer] literature.Reference ranges:60 or greater: Wjcchb05-51 ( for 3 consecutive months): Chronic kidney disease 15 or less: Kidney failureEl [facility] Children's HospitalGlucose ngccaenjlsn0955-71-78 05:45:00* Test Item Value Reference Range Interpretation Comments Glucose Level (test code = QCI0036) 81 74-118 [facility] or plasma calcium measurement (mass/volume)2019-07-27 05:45:00* Test Item Value Reference Range Interpretation Comments Calcium Level (test code = 43149-3) 8.4 8.4-10.2 [facility] HospitalFluoroscopic procedure less than one hour smdtmcaa7210-56-75 18:48:00* Test Item Value Reference Range Interpretation [...] complexity tests.Testing performed by Clinical Pathology Labor ntmfzcz50[address] [place], [place] [phone] Director: Abraham Willis M.D.IA # [id number] [facility] ABDOMEN-1VIEW (KUB)2019-07-26 16:24:00 [facility] [address] [address] Patient Name: ORALIA RIOS MR #: [id number] : 1985 Age/Sex: 33/F Req #: [id number] Adm Physician: Ordered by: MT SAHU DO Report #: [id number] Location: ER Room/Bed: Procedure: [id number] DX/ABD OMEN-1VIEW (KUB) Exam Date: 07/26/19 Exam [...] 4:25 PM Dictated By: KATHYA PEARSON MD 7303 Transc ribed By: ARNALDO on 07/26/19 1625 COPY TO: MT SAHU DO [id number] 15:55:00 RUN DATE: 07/26/19 [place] [facility] PAGE 1 RUN TIME: 1555 Specimen Inqui ry RUN USER: INTERFACE PATIENT: ORALIA RIOS ACCT #: [id number] LOC: KIM U #: [id number] AGE/SX: 33/F ROOM: [facility] RE07/22/19REG DR: Rustam Tipton MD : [birth year] BED: B DIS: 07/25/19 STATUS: DIS IN TLOC: SPEC #: [id number] RECD: 07/25/19 STATUS: ANA QUIÑONES #: [id number] ROYAL: 07/25/19- SUBM DR: Rustam Tipton MD ENTERED: 07/25/19 SP TYPE: CALCULI OTHR DR: Marybeth peres or Family Physician Dane Sterling MDORDERED: ALICIA COPIES TO: No Primary or Family Physician Rustam Tipton MD [address] [place] [address] H Dane miller MD [address] [place] [address] PROCEDU RES: ALICIA (07/25/19-1135) TISSUES: URETER, NOS - STONE [facility]IC [place] HISTORY COLLECTION DATE: 07/25/19 STONE FINAL DIAGNOSIS Le ft ureteral stone, removal: CALCULUS FRAGMENTS TO BE SENT FOR CHEMICAL AN ALYSIS DMW/zenaida D 59706 MACROSCOPIC The specimen is re ceived in a container labeled with the patient's name and identified as "left ureteral stone". It consists of three jolly calculi/calculi fragments measuring 0.3 cm in aggregate. ALICIA PERFORMED AT [facility] CONTINUED ON NEXT PAGE RUN DATE : 07/26/19 [facility] PAGE 2 RUN TIME: 1555 Specimen Inquiry RUN USER: INTERFACE SPEC #: [id number] PATIENT: ORALIA RIOS #V [id number] (Continued) MACROSCOPIC ([place] d) [facility] [address] [place] [address] [phone])[phone] Signed SIGNATURE ON FILE W Lisbet wilder MD 07/26/19 1553 END OF REPORT Urine human chorionic gonadotropin (hCG) flekteghq2181-97-17 14:42:00* Test Item Value Reference Range Interpretation Comments Urine Test (test code = 2106-3) NEGATIVE NEGATIVE [facility] HospitalUrine human chorionic gonadotropin (hCG) xhzbyyjzs1527-79-64 14:42:00* Test Item Value Reference Range Interpretation Comments Urine Test (test code = 2106-3) NEGATIVE NEGATIVE [facility] HospitalCHEST SINGLE (PORTABLE)2019-07-26 13:23:00 [facility] [address] [place] [address] Patient Name: ORALIA RIOS MR #: [id number] : 1985 Age/Sex: 33/F Req #: [id number] Adm Physician: Ordered by: MT SAHU DO Report #: [id number] Location: ER Room/Bed: Procedure: [id number] DX/ABEBA ST SINGLE (PORTABLE) Exam Date: 07/26/19 [...] COPY TO: MT SAHU DO Urine color upfvzaeztlpwu8566-85-51 12:25:00* Test Item Value Reference Range Interpretation Comments Urine Color (test code = 5778-6) RED YELLOW [facility] HospitalUrine yhdjpga4183-21-58 12:25:00* Test Item Value Reference Range Interpretation Comments Urine Clarity (test code = 24239-9) TURBID CLEAR [facility] gravity of Urine by Test strip 2019-07-26 12:25:00* Test Item Value Reference Range Interpretation Comments Urine Specific [place] (test code = 5811-5) 1.030 1.010-1.02 5 [facility] HospitalUrine pH measurement by automated test lazde7808-06-53 12:25:00* Test Item Value Reference Range Interpretation Comments Urine pH (test code = 98689-0) 7 5-7 [facility] HospitalUrine leukocyte esterase detection by sxrduxyw8325-67-58 12:25:00* Test Item Value Reference Range Interpretation Comments Urine Leukocyte Esterase (test code = 5799-2) SMALL NEGATIVE [facility] HospitalUrine nitrite ovyhnabxc7802-80-99 12:25:00* Test Item Value Reference Range Interpretation Comments Urine Nitrite (test code = 75986-2) NEGATIVE NEGATIVE [facility] HospitalUrine protein measurement by test strip (mass/volume)2019-07-26 12:25:00* Test Item Value Reference Range Interpretation Comments Urine Protein (test code = 5804-0) >=300 NEGATIVE [facility] HospitalUrine glucose tojpauhmo4628-01-41 12:25:00* Test Item Value Reference Range Interpretation Comments Urine Glucose (UA) (test code = 2349-9) NEGATIVE NEGATIVE [facility] HospitalUrine ketones detection by automated test kfwpu9309-19-37 12:25:00* Test Item Value Reference Range Interpretation Comments Urine Ketones (test code = 08980-0) 2+ NEGATIVE [facility] HospitalUrine urobilinogen measurement by test strip (mass/volume)2019-07-26 12:25:00* Test Item Value Reference Range Interpretation Comments Urine Urobilinogen (test code = 25224-3) 0.2 0.2-1 [facility] HospitalUrine total bilirubin measurement (mass/volume)2019-07-26 12:25:00* Test Item Value Reference Range Interpretation Comments Urine Bilirubin (test code = 1978-6) SMALL NEGATIVE [facility] HospitalUrine erythrocytes rhczzgmhf6878-55-52 12:25:00* Test Item Value Reference Range Interpretation Comments Urine Blood (test code = 57352-0) LARGE NEGATIVE [facility] HospitalAutomated urine sediment leukocyte count by microscopy (number/high power field)2019-07-26 12:25:00* Test Item Value Reference Range Interpretation Comments Urine WBC (test code = 5821-4) 0-5 0-5 [facility] HospitalErythrocytes detection in urine sediment by light hmvgewyzlx3376-02-22 12:25:00* Test Item Value Reference Range Interpretation Comments Urine RBC (test code = 87161-7) >50 0-5 [facility] HospitalBacteria detection in urine sediment by light topciuidqx3457-12-96 12:25:00* Test Item Value Reference Range Interpretation Comments Urine Bacteria (test code = 50417-6) RARE NONE [facility] HospitalEpithelial cells detection in urine sediment by light yjmvbsdkwz1667-89-99 12:25:00* Test Item Value Reference Range Interpretation Comments Urine Epithelial Cells (test code = 14275-1) RARE NONE [facility] or plasma total bilirubin measurement (mass/volume)2019-07-26 12:25:00* Test Item Value Reference Range Interpretation Comments Total Bilirubin (test code = 1975-2) 0.7 0.2-1.2 [facility] HospitalFluoroscopic procedure less than one hour cjnchwdz7048-19-28 12:25:00* Test Item Value Reference Range Interpretation Comments Aspartate Amino Transf (AST/SGOT) (test code = Aspartate Amino Transf (AST/SGOT)) 14 5-34 [facility] or plasma alanine aminotransferase measurement (enzymatic activity/volume)2019-07-26 12:25:00* Test Item Value Reference Range Interpretation Comments Alanine Aminotransferase (ALT/SGPT) (test code = 1742-6) 14 0-55 [facility] or plasma protein measurement (mass/volume)2019-07-26 12:25:00* Test Item Value Reference Range Interpretation Comments Total Protein (test code = 2885-2) 7.9 6.5-8.1 [facility] or plasma albumin measurement (mass/volume)2019-07-26 12:25:00* Test Item Value Reference Range Interpretation Comments Albumin (test code = 1751-7) 4.6 3.5-5.0 [facility] HospitalPlasma globulin measurement (mass/volume) 2019-07-26 12:25:00* Test Item Value Reference Range Interpretation Comments Globulin (test code = 33734-0) 3.3 2.3-3.5 [facility] or plasma albumin/globulin mass luoma9355-91-51 12:25:00* Test Item Value Reference Range Interpretation Comments Albumin/Globulin Ratio (test code = 1759-0) 1.4 0.8-2.0 [facility] or plasma alkaline phosphatase measurement (enzymatic activity/volume)2019-07-26 12:25:00* Test Item Value Reference Range Interpretation Comments Alkaline Phosphatase (test code = 6768-6) 67 40-150 [facility] or plasma creatine kinase measurement (enzymatic activity/volume)2019-07-26 12:25:00* Test Item Value Reference Range Interpretation Comments Creatine Kinase (test code = 2157-6) 29-168 [facility] or plasma creatine kinase MB measurement (mass/volume)2019-07-26 12:25:00* Test Item Value Reference Range Interpretation Comments Creatine Kinase MB (test code = 70621-0) 0.60 0-5.0 [facility] HospitalTroponin I measurement by highly sensitive enzyme ldqewiugkdr0872-36-00 12:25:00* Test Item Value Reference Range Interpretation Comments Troponin I (test code = 90264-2) 0.006 0-0.300 [facility] or plasma creatine kinase measurement (enzymatic activity/volume)2019-07-26 12:25:00* Test Item Value Reference Range Interpretation Comments Creatine Kinase (test code = 2157-6) 168 [facility]asterum or plasma creatine kinase MB measurement (mass/volume)2019-07-26 12:25:00* Test Item Value Reference Range Interpretation Comments Creatine Kinase MB (test code = 85343-5) 0.60 0-5.0 [facility] HospitalTroponin I measurement by highly sensitive enzyme bzlapuvshpv2214-89-81 12:25:00* Test Item Value Reference Range Interpretation Comments Troponin I (test code = 28766-8) 0.006 0-0.300 [facility] HospitalBASIC METABOLIC [id number] 22:07:00 * Test Item Value Reference Range [...] CA) 8.1 mg/dL 8.0-10.5 N BASIC METABOLIC [id number] 18:58:00* Test Item Value Reference Range Interpretation [...] CA) 9.8 mg/dL 8.0-10.5 N HEPATIC FUNCTION [id number] 18:58:00* Test Item Value Reference Range Interpretation [...] code = ALKP) 62 U/L 50-139 N DLUYOE3152-09-61 18:58:00* Test Item Value Reference Range Interpretation Comments LIPASE (test code = LIP) 53 Unit/L 144-286 L HCG SERUM [id number] 18:58:00* Test Item Value Reference Range Interpretation Comments HCG SERUM QUAL (test code = HCGQL) NEGATIVE NEGATIVE This HCGQL test is NOT applicable for MALE patients.Check with nurse about probable order error.If Tumor Marker Test needed, nurse should order test "HCGTU"(Test #550.69049) BASIC METABOLIC [id number] 18:55:00* Test Item Value Reference Range Interpretation [...] CA) 9.8 mg/dL 8.0-10.5 N HEPATIC FUNCTION [id number] 18:55:00* Test Item Value Reference Range Interpretation [...] TOTAL (test code = ALKP) IUnit/L 45-117 SFXKBN0338-16-92 18:55:00* Test Item Value Reference Range Interpretation Comments LIPASE (test code = LIP) U/L 73.0-393.0 HCG SERUM [id number] 18:55:00* Test Item Value Reference Range Interpretation Comments HCG SERUM QUAL (test code = HCGQL) NEGATIVE NEGATIVE This HCGQL test is NOT applicable for MALE patients.Check with nurse about probable order error.If Tumor Marker Test needed, nurse should order test "HCGTU"(Test #550.42764) BASIC METABOLIC [id number] 18:53:00* Test Item Value Reference Range Interpretation [...] code = CA) mg/dL 8.5-10.1 HEPATIC FUNCTION [id number] 18:53:00* Test Item Value Reference Range Interpretation [...] TOTAL (test code = ALKP) IUnit/L 45-117 DJMMIZ6707-33-03 18:53:00* Test Item Value Reference Range Interpretation Comments LIPASE (test code = LIP) U/L 73.0-393.0 HCG SERUM [id number] 18:53:00* Test Item Value Reference Range Interpretation Comments HCG SERUM QUAL (test code = HCGQL) NEGATIVE NEGATIVE This HCGQL test is NOT applicable for MALE patients.Check with nurse about probable order error.If Tumor Marker Test needed, nurse should order test "HCGTU"(Test #550.43980) CBC W/O [id number] 18:48:00* Test Item Value Reference Range Interpretation [...] = MPV) 9.8 fL 6.7-11.0 N URINALYSIS [id number] 18:41:00* Test Item Value Reference Range Interpretation [...] per LPF NONE-FEW Urine Source? Clean CatchURINALYSIS [id number] 18:34:00* Test Item Value Reference Range Interpretation [...] HPF NONE Urine Source? Clean CatchBASIC METABOLIC [id number] 05:43:00* Test Item Value Reference Range Interpretation [...] CA) 8.6 mg/dL 8.5-10.1 N BASIC METABOLIC [id number] 05:42:00* Test Item Value Reference Range Interpretation [...] code = CA) mg/dL 8.5-10.1 CBC W/AUTO [id number] 05:07:00* Test Item Value Reference Range Interpretation [...] (test code = MDIFF) NO HCG SERUM [id number] 14:43:00* Test Item Value Reference Range Interpretation Comments HCG SERUM QUAL (test code = HCGQL) NEGATIVE NEGATIVE This HCGQL test is NOT applicable for MALE patients.Check with nurse about probable order error.If Tumor Marker Test needed, nurse should order test "HCGTU"(Test #550.79101) SPECIMEN COMMENTS: ADD ON TO TODAYS AM LABCoronavirus 2018 nCoV Bedside 2019-07-24 11:12:00* Test Item Value Reference Range Interpretation Comments Coronavirus 2018 nCoV Bedside (test code = COVNONPUIBED) Negative CBC W/AUTO [id number] 05:41:00* Test Item Value Reference Range Interpretation [...] NRBC#) 0.00 K/mm3 0.0-0.1 N BASIC METABOLIC [id number] 05:35:00* Test Item Value Reference Range Interpretation [...] code = CA) 8.5 mg/dL 8.5-10.1 N [id number] 05:35:00* Test Item Value Reference Range Interpretation Comments LIPASE (test code = LIP) 125 U/L 73.0-393.0 N BASIC METABOLIC [id number] 05:32:00* Test Item Value Reference Range Interpretation [...] CALCIUM (test code = CA) mg/dL 8.5-10.1 [id number] 05:32:00* Test Item Value Reference Range Interpretation Comments LIPASE (test code = LIP) U/L 73.0-393.0 - XR ABDOMEN AP 1 [id number] 11:37:00 FAX: Mehul Flores [phone] [place]: B St: ADM FAX: Rustam Tipton MD [phone] FAX: Dane Cabrera MD [phone] Name: ORALIA RIOS [facility] : 1985 Age/S: 33/F [address] Unit #: [id number] Loc: V.3032 [place] [address] Phys: Dane Sterling MD Acct: [id number] Dis Date: Status: ADM IN ONE #: [phone] Exam Date: 07/23/2019 1055 FAX #: [phone] Reason: FOLLOW UP STONE, COMPARE TO CT ON CD THAT PATIE EXAMS: CPT CODE: [id number] XR ABDOMEN AP 1 V 69566 HISTORY: FOLL OW UP STONE, COMPARE TO [...] possibly r epresenting stone, is unchanged. Location: [facility] Denise ctronically Signed by Sridhar Houser MD on 07/23/2019 at 1137 Reported and signed by: Sridhar Houser MD CC: Mehul Turner MD; Rustam Tipton MD; Dane Sterling MD Technologist: Lucille Cruz RT(R); Nikky flores RT(R) Trnscrd Date/Time/By: 07/23/2019 (3340) : By: [email or web address] Orig Print D/T: S: 07/23/2019 (0257) PAGE 1 Signed Report BASIC METABOLIC [id number] 05:53:00* Test Item Value Reference Range Interpretation [...] code = CA) 8.5 mg/dL 8.5-10.1 N [id number] 05:53:00* Test Item Value Reference Range Interpretation Comments LIPASE (test code = LIP) 90 U/L 73.0-393.0 N BASIC METABOLIC [id number] 05:40:00* Test Item Value Reference Range Interpretation [...] CALCIUM (test code = CA) mg/dL 8.5-10.1 KNIZOO2683-23-05 05:40:00* Test Item Value Reference Range Interpretation Comments LIPASE (test code = LIP) U/L 73.0-393.0 CBC W/AUTO [id number] 05:22:00* Test Item Value Reference Range Interpretation [...] code = MDIFF) NO - NM GASTRIC [id number] 14:33:00 FAX: Mehul Flores [phone] [place]: B St: ADM FAX: Rustam Tipton MD [phone] FAX: Joleen Flores [phone] Name: ORALIA RIOS [facility] : 1985 Age/S: 33/F [address] Unit #: [id number] Loc: V.3032 [place] [address] Phys: Joleen Flores PHOTO MASK INSPECTOR Acct: [id number] Dis Date: Status: ADM IN ONE #: [phone] Exam Date: 07/22/2019 1420 FAX #: [phone] Reason: NAUSEA, ABDONINAL PAIN EXAMS: CPT CODE: [id number] NM GASTRIC EMPTYING 37508 HISTORY: NAUSE A, ABDONINAL PAIN EXAM: NUCLEAR [...] minutes). IMPRESSION: Normal gastric emptying scan. Location: [facility] at 1433 Reported and signed by: Sridhar Houser MD CC: Mehul Turner MD; Rustam Tipton MD; Joleen Flores NP Technologist: AI JONES Trnscrd Date/Time/By: 07/22/2019 (1531) : By: [email or web address] Orig Print D/T: S: 07/22/2019 (7798) PAGE 1 Signed Report - XR ABDOMEN AP 1 [id number] 11:48:00 FAX: Mehul Flores [phone] [place]: B St: ADM FAX: Rustam Tipton MD [phone] FAX: Joleen Flores --------- Name: ORALIA RIOS [facility] : 1985 Age/S: 33/F [address] it #: [id number] Loc: V.3032 [place] [address] Phys: Joleen Flores PHOTO MASK INSPECTOR Acct: [id number] Dis Date: Status: ADM IN ONE #: [phone] Exam Date: 07/22/2019 1138 FAX #: [phone] Reason: NAUSEA, ABDONINAL PAINKIDNEY STONE, HYDRONEPHRO EXAMS: CPT CODE: [id number] XR ABDOMEN AP 1 V 52332 HISTORY: NAUS EA, ABDONINAL PAINKIDNEY STONE, HYDRONEPHROSIS [...] pelvis. Otherwise radiographically unremar kable abdomen. Location: [facility] at 1148 Reported and si gned by: Sridhar Houser MD CC: Mehul Turner MD; Xiao Tipton MD; Joleen Flores NP Technologist: Masha Krishnamurthy RT(R); Nikky Son RT(R) Trnmstyler Date/Time/By: 07/22/2019 (1148) : By: [email or web address] Orig Print D/T: S: 07/22/2019 (8159) PAGE 1 Signed Report BASIC METABOLIC PANEL [...] code = CA) 8.1 mg/dL 8.5-10.1 L [id number] 06:43:00* Test Item Value Reference Range Interpretation Comments LIPASE (test code = LIP) 52 U/L 73.0-393.0 L BASIC METABOLIC [id number] 06:35:00* Test Item Value Reference Range Interpretation [...] CALCIUM (test code = CA) mg/dL 8.5-10.1 KZVPYG6670-90-14 06:35:00* Test Item Value Reference Range Interpretation Comments LIPASE (test code = LIP) U/L 73.0-393.0 CBC W/AUTO [id number] 05:59:00* Test Item Value Reference Range Interpretation [...] = MDIFF) NO DRUGS OF ABUSE SCREEN [id number] 19:47:00* Test Item Value Reference Range Interpretation [...] NEGATIVE <300 ng/mL DRUGS OF ABUSE SCREEN [id number] 19:44:00* Test Item Value Reference Range Interpretation [...] (test code = [place]) <300 ng/mL SED [id number] 12:35:00* Test Item Value Reference Range Interpretation Comments SED RATE (test code = SEDW) 5 mm/hr 0-20 WINTROBE METHOD: NORMAL RANGE FOR MEN: 0-9 MM/HR WOMAN: 0-20 MM/HR SED RATE [id number] 12:34:00* Test Item Value Reference Range Interpretation Comments SED RATE WESTERGREN (test code = SEDW) 5 mm/hr 0-20 N CBC W/AUTO [id number] 10:29:00* Test Item Value Reference Range Interpretation [...] NRBC#) 0.00 K/mm3 0.0-0.1 N BASIC METABOLIC [id number] 09:37:00* Test Item Value Reference Range Interpretation [...] code = CA) 8.7 mg/dL 8.5-10.1 N [id number] 09:37:00* Test Item Value Reference Range Interpretation Comments LIPASE (test code = LIP) 33 U/L 73.0-393.0 L BASIC METABOLIC [id number] 09:36:00* Test Item Value Reference Range Interpretation [...] CALCIUM (test code = CA) mg/dL 8.5-10.1 [id number] 07:08:00* Test Item Value Reference Range Interpretation Comments CALCIUM (test code = CA) 8.7 mg/dL 8.5-10.1 N [id number] 07:08:00* Test Item Value Reference Range Interpretation Comments PHOSPHORUS (test code = PHOS) 3.9 mg/dL 2.5-4.9 N [id number] 07:08:00* Test Item Value Reference Range Interpretation Comments MAGNESIUM (test code = MAG) 2.4 mg/dL 1.8-2.4 N VITAMIN [id number] 07:08:00* Test Item Value Reference Range Interpretation Comments VITAMIN B12 (test code = VITB12) 210 pg/mL 193-986 N THYROID STIMULATING [id number] 07:08:00* Test Item Value Reference Range Interpretation Comments THYROID STIMULATING HORMONE (test code = TSH) 0.615 uIU/mL 0.36-3.7 4 N TSH REFERENCE RANGES: EUTHYROID: 0.35 - 4.3 mIU/mL HYPO : > 5.5 mIU/mL HYPER : < 0.35 mIU/mL [id number] 06:37:00* Test Item Value Reference Range Interpretation Comments CALCIUM (test code = CA) 8.7 mg/dL 8.5-10.1 N [id number] 06:37:00* Test Item Value Reference Range Interpretation Comments PHOSPHORUS (test code = PHOS) mg/dL 2.5-4.9 [id number] 06:37:00* Test Item Value Reference Range Interpretation Comments MAGNESIUM (test code = MAG) 2.4 mg/dL 1.8-2.4 N VITAMIN [id number] 06:37:00* Test Item Value Reference Range Interpretation Comments VITAMIN B12 (test code = VITB12) pg/mL 193-986 THYROID STIMULATING [id number] 06:37:00* Test Item Value Reference Range Interpretation Comments THYROID STIMULATING HORMONE (test code = TSH) uIU/mL 0.36-3.7 4 - CT ABD PELVIS [id number] 17:45:00Patient Name: ORALIA RIOS Unit No: [id number] EXAMS: CPT CODE: [id number] CT ABD PELVIS W/CONT [id number] Location code: H5 CT Abdomen and Pelvis [...] enhancing lesion is seen. Name: ORALIA RIOS [facility] Phys: Xu Vasquez [address] : 1985 Age: 33 Sex: F [place], [place] [address] Loc: P.ERS Exam Date: 07/17/2019 Status: REG ER PH: FAX: PAGE 1 Signed Report (CONTINUE D) Patient Name: ORALIA RIOS Unit No: [id number] EX AMS: CPT CODE: [id number] CT A BD PELVIS W/CONT 34657 <Continued> Impression: 1. A 4 x 1.4 mm calculus is present at the left ureteropelvic junction. No hydronephrosis. Findings may cause intermittent obstruction. at 1745 Reported and signed by: Ricky MEJIA M.D. CC: Xu Santiago MD Technologist: Aggie Portillo CTDI: 20.37 DLP: 1000 Trscr Dt/Tm: 0 (1745) by:[email or web address] Printed Date/Time: 07/17/2019 (17 48) Name: ORALIA RIOS [facility] nt Phys: Xu Vasquez [address] DOB: 1985 Age: 33 Sex: [place] [address] Loc: P.ERS Exam Date: 07/17/2019 Status: REG ER PH: FAX: PAGE 2 Signed Report BASIC METABOLIC [id number] 15:57:00* Test Item Value Reference Range Interpretation [...] CA) 9.1 mg/dL 8.8-10.2 N LIVER FUNCTION [id number] 15:57:00* Test Item Value Reference Range Interpretation [...] code = ALKP) 69 U/L 32-104 N [id number] 15:57:00* Test Item Value Reference Range Interpretation Comments LIPASE (test code = LIP) 18 U/L 0-190 N CBC W/AUTO [id number] 15:44:00* Test Item Value Reference Range Interpretation [...] 0.03 x10 3/uL 0.0-0.20 N BASIC METABOLIC [id number] 13:45:00* Test Item Value Reference Range Interpretation [...] CA) 9.1 mg/dL 8.8-10.2 N LIVER FUNCTION [id number] 13:45:00* Test Item Value Reference Range Interpretation [...] code = ALKP) 71 U/L 32-104 N [id number] 13:45:00* Test Item Value Reference Range Interpretation Comments LIPASE (test code = LIP) 23 U/L 0-190 N CBC W/AUTO [id number] 13:20:00* Test Item Value Reference Range Interpretation [...] = BA#) 0.07 x10 3/uL 0.0-0.20 N [id number] 06:43:00* Test Item Value Reference Range Interpretation Comments FERRITIN (test code = UMESH) 82 ng/mL 13-150 N LIVER FUNCTION [id number] 06:41:00* Test Item Value Reference Range Interpretation [...] code = ALKP) 56 U/L 32-104 N [id number] 06:34:00* Test Item Value Reference Range Interpretation Comments PREALBUMIN (test code = PREALB) 14.2 MG/ML 15-42 L FE W/TOTAL IRON BINDING [id number] 06:34:00* Test Item Value Reference Range Interpretation Comments IRON (test code = IRON) 45 mcg/dL 53-167 L TOTAL IRON BINDING CAPACITY (test code = TIBC) 232 mcg/dL 250-450 L IRON SATURATION (test code = FESAT) 19 % 15-50 N BASIC METABOLIC [id number] 06:26:00* Test Item Value Reference Range Interpretation [...] code = CA) 8.7 mg/dL 8.8-10.2 L [id number] 06:26:00* Test Item Value Reference Range Interpretation Comments MAGNESIUM (test code = MAG) 1.8 mg/dL 1.4-2.6 N CBC W/AUTO [id number] 05:58:00* Test Item Value Reference Range Interpretation [...] BA#) 0.04 x10 3/uL 0.0-0.20 N SURGICAL [id number] 19:22:00 RUN DATE: 03/29/19 [facility] - LAB PAGE 1 RUN TIME: 1921 Specimen Inqui ry RUN USER: INTERFACE PATIENT: ORALIA RIOS ACCT #: B [id number] LOC: [place]7S POD B U #: [id number] AGE/SX: 33/F ROOM: [facility] RE03/24/19REG DR: Jostin Murguia MD : [birth year] BED: 1 DIS: STATUS: ADM IN TLOC: SPEC #: [id number] RECD: 03/27/19 STATUS: ANA REQ #: [id number] ROYAL: 03/27/[address]: Jostin Murguia [...] submitted in toto in cassette "B ". SET UP MECHANIC COIL WINDING MACHINES/eb CONTINUED ON NEXT PAGE -------- ----RUN DATE: 03/29/19 [facility] - LAB PAGE 2 RUN TIME: 1921 Specimen Inquiry RUN USER: INTERFACE SPEC #: [id number] PATIENT: ORALIA RIOS #[id number] (Continued) MICROSCOPIC DESCRIPTION Performed. Signed SIGNATURE ON FILE Ashwini Blancas 03/29/191921 END OF REPORT - XR UGI SGL CONTRAST 2019-03-29 13:11:00Patient Name: ORALIA RIOS Unit No: [id number] EXAMS: CPT CODE: [id number] XR UGI SGL CONTRAST 41787 Examination: Upper GI Location code: S17 Comparison: [...] Dt/Tm: 03/29/2019 (1311) by:[email or web address] Printed Date/Time: 03/29/2019 (8007) Name: ORALIA RIOS [facility] Phys: Misael Alva MD [address] : 1985 Age: 33 Sex: [place] [address] Loc: P.0720 1 Exam Date: 03/29/2019 Status : ADM IN PH: FAX: PAGE 1 Sign ed Report SURGICAL [id number] 13:16:00 RUN DATE: 03/28/19 [facility] - LAB PAGE 1 RUN TIME: 1316 Specimen Inqui ry RUN USER: INTERFACE PATIENT: GABRIELORALIA ACCT #: B [id number] LOC: P.7S POD B U #: [id number] AGE/SX: 33/F ROOM: [facility] RE03/24/19REG DR: Jostin Murguia MD : [birth year] BED: 1 DIS: STATUS: ADM IN TLOC: SPEC #: [id number] RECD: 03/26/19 STATUS: ANA QUIÑONES #: [id number] ROYAL: 03/26/19-[address]: Jostin Murguia [...] 316 END OF REPORT - NM GASTRIC [id number] 11:36:00Patient Name: ORALIA RIOS Unit No: [id number] EXAMS: CPT CODE: [id number] NM GASTRIC EMPTYING 54[address] Dictation location B2: NUCLEAR MEDICINE GASTRIC EMPTYING [...] Ware MD; Jostin Murguia MD Technologist: Garret oLve Trscr Dt/Tm: 03/28/2019 (1134) by:[facility]PROVID[facility] Printed Date/Time: 03/28/2019 (3995) Name: ORALIA RIOS [facility] Phys: Alan Beltrán MD [address] : 1985 Age: 33 Sex: [place] [address] Loc: P.0720 1 Exam Date: 03/28/2019 Status: ADM IN PH: FAX: PAGE 1 Signed Report - XR SMALL BOWEL 2019-03-28 08:38:00Patient Name: ORALIA RIOS Unit No: [id number] EXAMS: CPT CODE: [id number] XR SMALL BOWEL 97291 Examination: All bowel follow-through Location code: S17 Comparison: None Discussion: Clinical history is remarkable for pain, intractable nausea and vomiting. [place] Burner Operator KUB demonstrates no ileus, obstruction, or impaction. [...] Date/Time: 03/29/2019 (1037) Name: ORALIA RIOS COURTNEY [facility] Phys: Alan Beltrán MD [address] : 1985 Age: 33 Sex: [place] [address] Loc: P.0720 1 Exam Date: 03/27/2019 Status: ADM IN PH: FAX: PAGE 1 Signed Report CBC W/AUTO [id number] 03:53:00* Test Item Value Reference Range Interpretation [...] 0.02 x10 3/uL 0.0-0.20 N LIVER FUNCTION [id number] 03:52:00* Test Item Value Reference Range Interpretation [...] ALKP) 47 U/L 32-104 N BASIC METABOLIC [id number] 03:52:00* Test Item Value Reference Range Interpretation [...] code = CA) 8.0 mg/dL 8.8-10.2 L [id number] 03:52:00* Test Item Value Reference Range Interpretation Comments PREALBUMIN (test code = PREALB) 17.1 MG/ML 15-42 N - MRI [id number] 13:31:00Patient Name: ORALIA RIOS Unit No: [id number] EXAMS: CPT CODE: [id number] MRI MRCP 81870 Indication: ABDOMINAL PAIN TECHNIQUE: MRI of the [...] MD Technologist: Pankaj Jonas Trscr Dt/Tm: 03/25/2019 (4351) by:[email or web address] Printed Date /Time: 03/26/2019 (2997) Name: ORALIA RIOS [facility] Phys: Arabella Berry [address] : 1985 Age: 33 Sex: [place] [address] Loc: P.0720 1 Exam Date: 03/25/2019 Status: ADM IN PH: FA X: PAGE 1 Signed Report URINALYSIS [id number] 22:45:00* Test Item Value Reference Range Interpretation [...] = LEUU) NEGATIVE NEGA TIVE UR HCG [id number] 22:45:00* Test Item Value Reference Range Interpretation Comments UR HCG QUAL (test code = HCGQLU) NEGATIVE NEGATIVE URINALYSIS [id number] 22:44:00* Test Item Value Reference Range Interpretation [...] = LEUU) NEGATIVE NEGA TIVE UR HCG [id number] 22:44:00* Test Item Value Reference Range Interpretation Comments UR HCG QUAL (test code = HCGQLU) NEGATIVE - US ABDOMEN [id number] 22:34:00Patient Name: ORALIA RIOS Unit No: [id number] EXAMS: CPT CODE: [id number] US ABDOMEN [facility] [address] LOCATION: 3 EXAM: ABDOMINAL ULTRASOUND-LIMITED HISTORY: abdominal [...] Printed Date/Time: 03/24/2019 (2237) Name: ORALIA RIOS [facility] Phys: Arabella Anderson [address] : 1985 Age: 33 Sex: [place] [address] Loc: P.ERMS 5 Exam Date: 03/24/2019 S tatus: ADM IN PH: FAX: PAGE 1 Signed Report - CT ABD PELVIS W/[id number] 22:07:00Patient Name: ORALIA RIOS Unit No: [id number] EXAMS: CPT CODE: [id number] CT ABD PELVIS W/CONT 26611 Exam: CT abdomen and pelvis with contrast. [...] and signed by: MARI KOHLER M.D. [facility]: JACOBONatalia Garces Arabella Anderson [address] : 1985 Age: 33 Sex: F [place] [address] Loc: P.ERS Exam Date: 03/24/2019 Status: REG ER PH: FAX: PAGE 1 Signed Report (CONTINUED) Patient Name: ORALIA RIOS Unit No: [id number] EXAMS: CPT CODE: [id number] CT ABD PELVIS W/CONT 45421 < Continued> CC: Arabella Anderson MD Technologist: Rupali Bailon CTDI: 18.21 DLP: 916 Trscr Dt/Tm: 03/24/2019 (2206) by:Kevin Printed Date/Time: 03/24/2019 (2209) Name: GABRIELORALIA [facility] Phys: LASHON Garces Arabella Anderson [address] : 1985 Age: 33 Sex: F [place] [address] Loc: P.ERS Exam Date: 03/24/2019 Status: REG ER PH: FAX: PAGE 2 Signed Report COMPREHENSIVE METABOLIC [id number] 21:18:00* Test Item Value Reference Range Interpretation [...] code = ALKP) 62 U/L 32-104 N [id number] 21:18:00* Test Item Value Reference Range Interpretation Comments LIPASE (test code = LIP) 20 U/L 0-190 N CBC W/AUTO [id number] 21:05:00* Test Item Value Reference Range Interpretation [...] 0.05 x10 3/uL 0.0-0.20 N COMPREHENSIVE METABOLIC [id number] 02:27:00* Test Item Value Reference Range Interpretation [...] = ALKP) 66 Units/L 50-136 N BILIRUBIN [id number] 02:27:00* Test Item Value Reference Range Interpretation Comments BILIRUBIN DIRECT (test code = BILD) 0.1 MG/DL 0.0-0.3 N [id number] 02:27:00* Test Item Value Reference Range Interpretation Comments LIPASE (test code = LIP) 62 Units/L 73-393 L DRUG OF ABUSE SCREEN [id number] 02:27:00* Test Item Value Reference Range Interpretation [...] confirmed by alternate methods (i.e., [facility]) [facility]. Results of screen may not be usedin criminal justice, job performance or professionalcredential review, or custody issues. Negative [place] Level ng/ml ----- Cocaine 300 Methamphetamine (Ecstacy) 500 Cannabinoids (THC) 50 Amphetamine 1000 Barbiturates 200 Benzodiazepines 200 Opiates 300 Phencyclidine (PCP) 25 HCG SERUM [id number] 02:17:00* Test Item Value Reference Range Interpretation Comments HCG SERUM QUAL (test code = HCGQL) NEGATIVE NEGATIVE False negatives may occur when levels of hCGare below 10 mIU/ml. When is still suspected, a new specimenshould be obtained after 48 hours and re-tested.If waiting 48 hours is not medically advisable,the test result should be confirmed using aquantitative hCG assay. UA RFLX [id number] 02:15:00* Test Item Value Reference Range Interpretation [...] (test code = UASPEC) Clean Catch UA [id number] 02:15:00* Test Item Value Reference Range Interpretation [...] = UACULT) Criteria not met UA RFLX [id number] 02:00:00* Test Item Value Reference Range Interpretation [...] (test code = UASPEC) Clean Catch UA [id number] 02:00:00* Test Item Value Reference Range Interpretation Comments UA WBC (test code = WBCU) #/hpf <10 UA RBC (test code = RBCU) #/HPF NONE SEEN UA SQUAMOUS CELLS (test code = SQU) #/lpf <100 UA CULTURE NEEDED? (test code = UACULT) UA RFLX [id number] 02:00:00* Test Item Value Reference Range Interpretation [...] (test code = UASPEC) Clean Catch UA [id number] 02:00:00* Test Item Value Reference Range Interpretation Comments UA WBC (test code = WBCU) #/hpf <10 UA RBC (test code = RBCU) #/HPF NONE SEEN UA SQUAMOUS CELLS (test code = SQU) #/lpf <100 UA CULTURE NEEDED? (test code = UACULT) CBC W/AUTO [id number] 01:59:00* Test Item Value Reference Range Interpretation [...] NRBC#) 0.0 X10 3/uL 0.0-0.2 N SURGICAL [id number] 18:04:00 RUN DATE: 12/18/18 [facility] - LAB PAGE 1 RUN TIME: 1804 Specimen Inqui ry RUN USER: INTERFACE PATIENT: GABRIELORALIA ACCT #: B [id number] LOC: CARLO U #: [id number] AGE/SX: 33/F ROOM: RE12/14/18FLAKO DR: Misael Hubbard MD : 81 BED: DIS: STATUS: [facility] TLOC: SPEC #: [id number] RECD: 12/14/18 STATUS: ANA RE #: [id number] ROYAL: 12/14/[address] [facility] [address]: Misael Hubbard MD ENTERED: 12/14/18 SP [...] No discrete lesions or gallstones are present. Swamper sections of the gallbladder along with the cystic duct margin is submitted in cassette A1. The possible lymph node is bisected a nd entirely submitted in cassette A2. SET UP MECHANIC COIL WINDING MACHINES/eb MICROSCOPIC DESCRIPTION Javier roscopic performed. Signed SIGNATURE ON FILE Ashwini Rawls 12/18/18 1804 END OF REPORT HCG SERUM [id number] 12:15:00* Test Item Value Reference Range Interpretation Comments HCG SERUM QUAL (test code = HCGQL) NEGATIVE NEGATIVE DATE OF LAST MENSTRUAL PERIOD: 12/12/17COMMENTS: TAKING CONTROL SHOTSBASI METABOLIC [id number] 12:04:00* Test Item Value Reference Range Interpretation [...] CA) 8.9 mg/dL 8.8-10.2 N CBC W/AUTO [id number] 11:38:00* Test Item Value Reference Range Interpretation [...] N - HEPA IMAG INCL GB W [id number] 14:39:00Patient Name: ORALIA RIOS Unit No: [id number] EXAMS: CPT CODE: [id number] HEPA IMAG INCL GB W PHA 49672 HIDA scan with gallbladder ejection fraction. DIAGNOSIS: [...] CC: Misael Hubbard MD Technologist: Garret Love [facility] r Dt/Tm: 12/05/2018 (2029) by:[email or web address] Printed Date/Ti me: 12/05/2018 (4212) Name: ORALIA RIOS [facility] Phys: 01 - Misael Hubbard MD [address] : 1985 Age: 33 Sex: [place] [address] Loc: P.NUC Exam Date: 12/05/2018 Status: REG CLI PH: FAX: PAGE 1 Signed Report URINALYSIS [id number] 15:35:00* Test Item Value Reference Range Interpretation [...] Urine Source? Clean CatchDRUGS OF ABUSE SCREEN [id number] 15:35:00* Test Item Value Reference Range Interpretation [...] <300 ng/mL Urine Source? Clean CatchBASIC METABOLIC [id number] 15:23:00* Test Item Value Reference Range Interpretation [...] CA) 9.2 mg/dL 8.5-10.1 N HEPATIC FUNCTION [id number] 15:23:00* Test Item Value Reference Range Interpretation [...] due to change in reagent. HCG SERUM [id number] 15:23:00* Test Item Value Reference Range Interpretation Comments HCG SERUM QUAL (test code = HCGQL) NEGATIVE NEGATIVE This HCGQL test is NOT applicable for MALE patients.Check with nurse about probable order error.If Tumor Marker Test needed, nurse should order test "HCGTU"(Test #550.02962) [id number] 15:23:00* Test Item Value Reference Range Interpretation Comments ACETAMINOPHEN (test code = ACET) < 10 mcg/mL 10-30 L A RANGE OF 10-30 mcg/mL IS A THERAPEUTIC RANGE. TOXIC CONCENTRATIONS: >150 mcg/mL AT 4 HOURS AFTER INGESTION >= 50 mcg/mL AT 12 HOURS AFTER INGESTION [id number] 15:23:00* Test Item Value Reference Range Interpretation Comments SALICYLATE (test code = EMMA) < 1.7 mg/dL 2.8-20.0 L [id number] 15:23:00* Test Item Value Reference Range Interpretation [...] ANADDITIONAL CHARGE TO THE PATIENT. BASIC METABOLIC [id number] 15:18:00* Test Item Value Reference Range Interpretation [...] CA) 9.2 mg/dL 8.5-10.1 N HEPATIC FUNCTION [id number] 15:18:00* Test Item Value Reference Range Interpretation [...] due to change in reagent. HCG SERUM [id number] 15:18:00* Test Item Value Reference Range Interpretation Comments HCG SERUM QUAL (test code = HCGQL) NEGATIVE [id number] 15:18:00* Test Item Value Reference Range Interpretation Comments ACETAMINOPHEN (test code = ACET) < 10 mcg/mL 10-30 L A RANGE OF 10-30 mcg/mL IS A THERAPEUTIC RANGE. TOXIC CONCENTRATIONS: >150 mcg/mL AT 4 HOURS AFTER INGESTION >= 50 mcg/mL AT 12 HOURS AFTER INGESTION [id number] 15:18:00* Test Item Value Reference Range Interpretation Comments SALICYLATE (test code = EMMA) < 1.7 mg/dL 2.8-20.0 L [id number] 15:18:00* Test Item Value Reference Range Interpretation [...] AT ANADDITIONAL CHARGE TO THE PATIENT. URINALYSIS [id number] 15:12:00* Test Item Value Reference Range Interpretation [...] Urine Source? Clean CatchDRUGS OF ABUSE SCREEN [id number] 15:12:00* Test Item Value Reference Range Interpretation [...] <300 ng/mL Urine Source? Clean CatchCBC W/O [id number] 15:09:00* Test Item Value Reference Range Interpretation [...] = MPV) 10.2 fL 6.7-11.0 N URINALYSIS [id number] 15:09:00* Test Item Value Reference Range Interpretation [...] Urine Source? Clean CatchDRUGS OF ABUSE SCREEN [id number] 15:09:00* Test Item Value Reference Range Interpretation [...] [place]) <300 ng/mL Urine Source? Clean CatchURINALYSIS [id number] 09:12:00* Test Item Value Reference Range Interpretation [...] HPF NONE A Urine Source? Clean CatchURINALYSIS [id number] 09:10:00* Test Item Value Reference Range Interpretation [...] HPF NONE Urine Source? Clean CatchBASIC METABOLIC [id number] 07:57:00* Test Item Value Reference Range Interpretation [...] CA) 8.1 mg/dL 8.0-10.5 N HEPATIC FUNCTION [id number] 07:57:00* Test Item Value Reference Range Interpretation [...] code = ALKP) 57 U/L 50-139 N [id number] 07:57:00* Test Item Value Reference Range Interpretation Comments LIPASE (test code = LIP) 76 Unit/L 144-286 L HCG SERUM [id number] 07:57:00* Test Item Value Reference Range Interpretation Comments HCG SERUM QUAL (test code = HCGQL) NEGATIVE NEGATIVE This HCGQL test is NOT applicable for MALE patients.Check with nurse about probable order error.If Tumor Marker Test needed, nurse should order test "HCGTU"(Test #550.55792) [id number] 07:57:00* Test Item Value Reference Range Interpretation Comments TROPONIN-I (test code = TROPI) <0.015 ng/mL 0.00-0.056 N BASIC METABOLIC [id number] 07:51:00* Test Item Value Reference Range Interpretation [...] CA) 8.1 mg/dL 8.0-10.5 N HEPATIC FUNCTION [id number] 07:51:00* Test Item Value Reference Range Interpretation [...] TOTAL (test code = ALKP) IUnit/L 45-117 [id number] 07:51:00* Test Item Value Reference Range Interpretation Comments LIPASE (test code = LIP) U/L 73.0-393.0 HCG SERUM [id number] 07:51:00* Test Item Value Reference Range Interpretation Comments HCG SERUM QUAL (test code = HCGQL) NEGATIVE [id number] 07:51:00* Test Item Value Reference Range Interpretation Comments TROPONIN-I (test code = TROPI) ng/mL 0-0.045 BASIC METABOLIC [id number] 07:51:00* Test Item Value Reference Range Interpretation [...] CA) 8.1 mg/dL 8.0-10.5 N HEPATIC FUNCTION [id number] 07:51:00* Test Item Value Reference Range Interpretation [...] TOTAL (test code = ALKP) IUnit/L 45-117 [id number] 07:51:00* Test Item Value Reference Range Interpretation Comments LIPASE (test code = LIP) U/L 73.0-393.0 HCG SERUM [id number] 07:51:00* Test Item Value Reference Range Interpretation Comments HCG SERUM QUAL (test code = HCGQL) NEGATIVE NEGATIVE This HCGQL test is NOT applicable for MALE patients.Check with nurse about probable order error.If Tumor Marker Test needed, nurse should order test "HCGTU"(Test #550.39103) [id number] 07:51:00* Test Item Value Reference Range Interpretation Comments TROPONIN-I (test code = TROPI) ng/mL 0-0.045 CBC W/O [id number] 07:42:00* Test Item Value Reference Range Interpretation [...] = MPV) 10.4 fL 6.7-11.0 N URINALYSIS [id number] 12:10:00* Test Item Value Reference Range Interpretation [...] FEW A Urine Source? Clean CatchBASIC METABOLIC [id number] 10:56:00* Test Item Value Reference Range Interpretation [...] CA) 8.4 mg/dL 8.5-10.1 L HEPATIC FUNCTION [id number] 10:56:00* Test Item Value Reference Range Interpretation [...] reference range due to change in reagent. [id number] 10:56:00* Test Item Value Reference Range Interpretation Comments LIPASE (test code = LIP) 82 U/L 73.0-393.0 N HCG SERUM [id number] 10:56:00* Test Item Value Reference Range Interpretation Comments HCG SERUM QUAL (test code = HCGQL) NEGATIVE NEGATIVE This HCGQL test is NOT applicable for MALE patients.Check with nurse about probable order error.If Tumor Marker Test needed, nurse should order test "HCGTU"(Test #550.18797) [id number] 10:56:00* Test Item Value Reference Range Interpretation Comments TROPONIN-I (test code = TROPI) <0.015 ng/mL 0-0.045 N BASIC METABOLIC [id number] 10:54:00* Test Item Value Reference Range Interpretation [...] CA) 8.4 mg/dL 8.5-10.1 L HEPATIC FUNCTION [id number] 10:54:00* Test Item Value Reference Range Interpretation [...] reference range due to change in reagent. [id number] 10:54:00* Test Item Value Reference Range Interpretation Comments LIPASE (test code = LIP) 82 U/L 73.0-393.0 N HCG SERUM [id number] 10:54:00* Test Item Value Reference Range Interpretation Comments HCG SERUM QUAL (test code = HCGQL) NEGATIVE [id number] 10:54:00* Test Item Value Reference Range Interpretation Comments TROPONIN-I (test code = TROPI) <0.015 ng/mL 0-0.045 N BASIC METABOLIC [id number] 10:50:00* Test Item Value Reference Range Interpretation [...] code = CA) mg/dL 8.5-10.1 HEPATIC FUNCTION [id number] 10:50:00* Test Item Value Reference Range Interpretation [...] TOTAL (test code = ALKP) IUnit/L 45-117 [id number] 10:50:00* Test Item Value Reference Range Interpretation Comments LIPASE (test code = LIP) U/L 73.0-393.0 HCG SERUM [id number] 10:50:00* Test Item Value Reference Range Interpretation Comments HCG SERUM QUAL (test code = HCGQL) NEGATIVE [id number] 10:50:00* Test Item Value Reference Range Interpretation Comments TROPONIN-I (test code = TROPI) ng/mL 0-0.045 CBC W/O [id number] 10:42:00* Test Item Value Reference Range Interpretation [...] MPV) 10.8 fL 6.7-11.0 N CBC W/O [id number] 10:36:00* Test Item Value Reference Range Interpretation [...] VOLUME (test code = MPV) fL 6.7-11.0 [id number] 15:56:00 RUN DATE: 10/10/18 [place] - Lab PAGE 1 RUN TIME: 1556 Specimen Inqui ry RUN USER: INTERFACE PATIENT: ORALIA RIOS ACCT #: V [id number] LOC: JustinOBS U #: [id number] AGE/SX: 33/F ROOM: [facility] RE10/03/18REG DR: Calixto Clark MD : 81 BED: A DIS: 10/06/18 STATUS: DIS [place]eno TLOC: SPEC #: [id number] RECD: 10/09/18 STATUS: ANA QUIÑONES #: [id number] ROYAL: 10/05/18- [facility] DR: Konstantin Russo MD ENTERED: 10/09/18 SP TYPE: STOMACH OTHR DR: Mc Marrero i, MD ORDERED: GROSS COPIES TO: Konstantin Russo MD [address] [place] [address] Mc Rowan MD [address] [place] [address] PROCEDURES: GROSS (10/10/18-1050 ) TISSUES: 1. DUODENUM, NOS - BX 2. GASTRIC CORPUS - BX CLINICAL HISTORY COLLECTION DATE: 10/05/18 ABDOMINAL PAIN, NAUSEA, VOM ITING FINAL DIAGNOSIS Duodenum, rule out duodenitis, biopsy: D UODENAL MUCOSA, NO PATHOLOGIC ALTERATION NEGATIVE FOR DUODENITIS Gastric biopsy: PATCHY MILD CHRONIC INFLAMMATION, GASTRIC MUCOSA NO INTESTINAL METAPLASIA SEEN NEGATIVE FOR HELICOBACTER PYLORI NE GATIVE FOR [facility]/ D [phone] CONTINUED ON NEXT PAGE RUN DATE: 10/10/18 [place] - Lab PAGE 2 RUN TIME: 15 56 Specimen Inquiry RUN USER: INTE RFACE SPEC #: [id number] PATIENT: ORALIA RIOS #[id number] (Co ntinued) MACROSCOPIC The first specimen is [...] stain will be prepared. GROSS PERFORMED AT [facility] [address] [place] [address] [phone])[phone] MICROSCOPIC All of the stains, including any controls performed, stain appropriately. MICROSCOPIC PERFORMED AT [facility] [address] [place] [address] P) PERFORMING SITE Diagnosis performed at: [facility] [place] [place] [facility] [place] [address] [place] [address] Signed SIGNATURE ON FILE Lisbet Chaudhry MD 10/10/18 1556 END OF REPORT BASIC METABOLIC [id number] 11:01:00* Test Item Value Reference Range Interpretation [...] CA) 8.2 mg/dL 8.5-10.1 L BASIC METABOLIC [id number] 10:58:00* Test Item Value Reference Range Interpretation [...] CA) 8.2 mg/dL 8.5-10.1 L CBC W/AUTO [id number] 10:34:00* Test Item Value Reference Range Interpretation [...] NRBC#) 0.00 K/mm3 0.0-0.1 N CBC W/AUTO [id number] 10:32:00* Test Item Value Reference Range Interpretation [...] (test code = BA#) K/mm3 0.0-0.2 URINALYSIS [id number] 18:36:00* Test Item Value Reference Range Interpretation [...] Urine Source? Clean CatchDRUGS OF ABUSE SCREEN [id number] 18:36:00* Test Item Value Reference Range Interpretation [...] NEGATIVE <300 ng/mL Urine Source? Clean CatchURINALYSIS [id number] 18:27:00* Test Item Value Reference Range Interpretation [...] Urine Source? Clean CatchDRUGS OF ABUSE SCREEN [id number] 18:27:00* Test Item Value Reference Range Interpretation [...] [place]) <300 ng/mL Urine Source? Clean CatchURINALYSIS [id number] 18:23:00* Test Item Value Reference Range Interpretation [...] Urine Source? Clean CatchDRUGS OF ABUSE SCREEN [id number] 18:23:00* Test Item Value Reference Range Interpretation [...] Urine Source? Clean Catch- CT ABD PELVIS [id number] 17:47:00 Name: ORALIA RIOS [facility] FSED : 1985 Age/S: 33 / F [address] [facility] [address] Unit #: [id number] Loc: [address] Phys: Albin Duran MD [place], [place] [address] Acct: [id number] Di s Date: Status: REG ER PHONE #: Exam Date: 10/03/2018 8339 FAX #: Reason: Mid abdominal pain EXAMS: CPT CODE: [id number] CT ABD PELVIS W/CONT 76415 EXAM: CT of the abdomen a nd [...] [email or web address] O rig Print D/T: S: 10/03/2018 (4924) PAGE 1 Signed Re port BASIC METABOLIC [id number] 16:14:00* Test Item Value Reference Range Interpretation [...] CA) 9.2 mg/dL 8.0-10.5 N HEPATIC FUNCTION [id number] 16:14:00* Test Item Value Reference Range Interpretation [...] code = ALKP) 66 U/L 50-139 N [id number] 16:14:00* Test Item Value Reference Range Interpretation Comments LIPASE (test code = LIP) 45 Unit/L 144-286 L HCG SERUM [id number] 16:14:00* Test Item Value Reference Range Interpretation Comments HCG SERUM QUAL (test code = HCGQL) NEGATIVE NEGATIVE This HCGQL test is NOT applicable for MALE patients.Check with nurse about probable order error.If Tumor Marker Test needed, nurse should order test "HCGTU"(Test #550.08252) BASIC METABOLIC [id number] 16:13:00* Test Item Value Reference Range Interpretation [...] CA) 9.2 mg/dL 8.0-10.5 N HEPATIC FUNCTION [id number] 16:13:00* Test Item Value Reference Range Interpretation [...] code = ALKP) 66 U/L 50-139 N [id number] 16:13:00* Test Item Value Reference Range Interpretation Comments LIPASE (test code = LIP) 45 Unit/L 144-286 L HCG SERUM [id number] 16:13:00* Test Item Value Reference Range Interpretation Comments HCG SERUM QUAL (test code = HCGQL) NEGATIVE C REACTIVE [id number] 16:10:00* Test Item Value Reference Range Interpretation Comments C REACTIVE PROTEIN (test code = CRP) 1.8 0.00-5.00 N BASIC METABOLIC [id number] 16:08:00* Test Item Value Reference Range Interpretation [...] CA) 9.2 mg/dL 8.0-10.5 N HEPATIC FUNCTION [id number] 16:08:00* Test Item Value Reference Range Interpretation [...] TOTAL (test code = ALKP) IUnit/L 45-117 [id number] 16:08:00* Test Item Value Reference Range Interpretation Comments LIPASE (test code = LIP) U/L 73.0-393.0 HCG SERUM [id number] 16:08:00* Test Item Value Reference Range Interpretation Comments HCG SERUM QUAL (test code = HCGQL) NEGATIVE CBC W/O [id number] 15:58:00* Test Item Value Reference Range Interpretation [...]
--- NOTE | 2019-09-10 06:57 | Operative Report ---
DATE OF PROCEDURE: 08/12/2019 SURGEON: Dane Sterling MD OPERATIONS PERFORMED: 1. Cystourethroscopy with complicated removal of left indwelling ureteral stent (separate procedure WAS performed for the diagnosis of stent done with separate scope). 2. Left ureteroscopy (separate procedure WAS performed to evaluate for any residual urolithiasis). 3. Urological services with supervision and interpretation of ureteroscopy, no radiologist present. 4. Cystourethroscopy with insertion of left indwelling ureteral stent (separate procedure WAS performed to relieve the hydronephrosis). 5. Interpretation of retrograde ureteropyelography. 6. Supervision of fluoroscopy, no radiologist present. 7. Pelvic examination under anesthesia. ANESTHESIA: General. CLINICAL SUMMARY: Hui Silva is a 33-year-old woman who had urolithiasis. She had a stent in place. She is brought to the operating room to remove the stent and hopefully render her stent free and stone free. She is aware of the risks of bleeding, infection, injury to adjacent structures, need for additional procedures and elected to proceed. OPERATIVE PROCEDURE IN DETAIL: Informed consent was verified. Hui Silva was properly identified, taken to the operating room, placed on the cystoscopy table in supine position. Anesthesia was uneventfully begun. The patient was then carefully gently repositioned in dorsal lithotomy position with all pressure points well padded. Her genitalia were prepared and draped in the usual sterile fashion. The cystoscope sheath with obturator in place was atraumatically inserted into the patient's urethra and bladder was drained. Panendoscopy of the bladder revealed no suspicious mucosal lesions, no tumors, no stones, and no diverticula. Mild trabeculations were noted and the stent was emerging from the left ureteral orifice. A guidewire was then placed alongside the stent and guided to the level of the patient's kidney. The stent was then grasped, completely removed and discarded. A semi-rigid ureteroscope was placed alongside the guidewire into the distal left ureter. The distal left ureter exhibited significant amount of inflammation. There was also some fine sand noted. Proximal to that, there was some dilation and hydroureteronephrosis. Guidewire was left in place while the ureteroscope was withdrawn. Flexible ureteroscope was then placed over the guidewire and guided to the level of the patient's kidney. Panendoscopy revealed Nirav's plaques, but no suspicious mucosal lesions, no tumors, no stones, no diverticula. We carefully examined the ureter as we exited. It exhibited no suspicious lesions, but did have erythema distally and therefore a guidewire was left in place. With cystoscopic and fluoroscopic guidance, the left-sided indwelling ureteral stent was then placed. It was coiled in the patient's kidney as well as the patient's bladder. DICTATION ENDS HERE Dane MD TINO Sterling/DYLON /[id number]
== END 2019-08-13 10:53 | disposition home or self-care (01) | DRG 660 ==
LOC: FSED 12:06 → ERHOLD 13:26 → MED/SURG2 15:02 → OBSVTOIN 08-11 12:36
PROVIDERS: ADMIT Internal Medicine; ATTEND Internal Medicine
PROC: 0T778DZ Dilation of Left Ureter with Intraluminal Device, Via Natural or Artificial Opening Endoscopic (ICD-10-PCS; 2019-08-12)
PROC: BT1F1ZZ Fluoroscopy of Left Kidney, Ureter and Bladder using Low Osmolar Contrast (ICD-10-PCS; 2019-08-12)
PROC: 0TP98DZ Removal of Intraluminal Device from Ureter, Via Natural or Artificial Opening Endoscopic (ICD-10-PCS; principal; 2019-08-12 12:57)
DX: T83.593A Infection and inflammatory reaction due to other urinary stents, initial encounter (principal); N13.6 Pyonephrosis; N12 Tubulo-interstitial nephritis, not specified as acute or chronic; Z96.0 Presence of urogenital implants; B95.61 Methicillin susceptible Staphylococcus aureus infection as the cause of diseases classified elsewhere; E83.51 Hypocalcemia; N23 Unspecified renal colic; K29.70 Gastritis, unspecified, without bleeding; Z11.59 Encounter for screening for other viral diseases
CPT/HCPCS: 36415; 74176; 74420; 80048; 80053; 80076; 80202; 81001; 81003; 81025; 85025; 87040; 87086; 96374; 96376; 99284; C1758; C1769; C2617; G0378; J1885; J2001; J2250; J2270; J2405; J3010; J3370; J7030; U0002